=== PATIENT | female | born 1965 | race Caucasian/White ===

== ENCOUNTER 2016-12-31 18:49 | Emergency (ER) | payer MEDICAID ==
[~2016-12-31] VITALS: Ht 152.4 cm; Wt 88.6 kg
[~2016-12-31 18:49] MED LIST: ALBUAER3 INH; AMLO5 PO; ASPI-110 PO; CARV12.5 PO; COZA50TA PO; CYCL1TAB29 PO; FURO1TAB60 PO; GABA600T PO; GLUC1000 PO; IPRASOL INH; LOVA20TA PO; NOVONP2 SQ; PLAV75TA29 PO
[2016-12-31 19:06] VITALS: BP 134/97; PULSE 99; RESP 24; TEMP 97.6; O2SAT 97
[2016-12-31] MEDS ORDERED: FURO40TA PO (19:37)
[2016-12-31] MEDS ORDERED: AMLO10TA2 PO (19:37)
[2016-12-31] MEDS ORDERED: CARV3.12 PO (19:37)
[2016-12-31] MEDS ORDERED: LOSA50TA PO (19:37)
[2016-12-31] MEDS ORDERED: KETOROLAC TROMETHAMINE 60 MG/2 ML (IM) VIAL IM ONE (19:45)
[2016-12-31] MEDS ORDERED: ACETAMINOPHEN/HYDROcodone 325 MG/5 MG TAB PO ONE (19:45)
[2016-12-31] MEDS ORDERED: METHOCARBAMOL 500 MG TAB PO SCH (19:45)
--- NOTE | 2016-12-31 19:54 | PD ---
HPI Chief Complaint: Pain: Acute or Chronic Time Seen by Provider: 19:35 Travel History International Travel<30 days: No Contact w/Intl Traveler<30days: No Traveled to known affect area: No History of Present Illness HPI 51-year-old female presents to the emergency room for evaluation of acute on chronic left-sided sciatica that has been going on for the past 3 days. Patient last had sciatica one year ago but states this is worse it is ever been. She denies any back problems. Patient has been taking ibuprofen and prescribed Flexeril without any relief in symptoms. She has also been lying on he which hasn't really helped. Patient states that the pain comes and goes "like a muscle spasm." When she was walking to the bathroom it occurred at because so much pain that her son had to assist her back to bed. She denies any recent trauma or injury. Denies fever, chills, weight loss, IV drug use, lower extremity paresthesias, saddle anesthesia, or loss of bowel or bladder control. PFSH Past Medical History Hx Anticoagulant Therapy: Yes (ASA) Asthma: Yes Anxiety: Yes Depression: Yes Heart Rhythm Problems: No Cancer: No Cardiovascular Problems: Yes ([place] X2) High Cholesterol: Yes Congestive Heart Failure: Yes COPD: Yes Coronary Artery Disease: Yes Diabetes: Yes Patient Takes Glucophage: Yes Diminished Hearing: No Endocrine: Yes Gastrointestinal Disorders: No GERD: Yes Genitourinary: Yes (KIDNEY STONES) Hypertension: Yes Implanted Vascular Access Dvce: Yes Kidney Stones: Yes Musculoskeletal: Yes (Degenerative disc disease ) Neurologic: Yes (Neuropathy ) Psychiatric: Yes Reproductive: No Respiratory: Yes (ASTHMA COPD) Immunizations Current: Yes Myocardial Infarction: Yes (X's 2) Sleep Apnea: Yes Tetanus Vaccination: < 5 Years Influenza Vaccination: Yes ?: Not Menopausal: Yes : 3 Para: 2 : 1 Tubal Ligation: Yes Past Surgical History Abdominal Surgery: Yes (Lap band) Body Medical Devices: Lap band, Novasure Section: Yes (X's 1) Gynecologic Surgery: Yes (Uterine ablation ) Other Surgery: Yes (LAP BAND, ) Social History Alcohol Use: No Tobacco Use: Yes (Occ.) Substance Use: No (Marijuana occasionally ) Allergies-Medications (Allergen,Severity, Reaction): Coded Allergies: No Known Allergies (Verified , 12/31/16) Reported Meds & Prescriptions Reported Meds & Active Scripts Active Lortab (Hydrocodone-Acetaminophen) 5-325 Mg Tab 1 Tab PO Q6H PRN Reported Amlodipine (Amlodipine Besylate) 10 Mg Tab 10 Mg PO DAILY Furosemide 40 Mg Tab 40 Mg PO BID Losartan (Losartan Potassium) 50 Mg Tab 50 Mg PO DAILY Carvedilol 3.125 Mg Tab 3.125 Mg PO BID Glucophage (Metformin HCl) 1,000 Mg Tab 1,000 Mg PO BIDPC With a meal Gabapentin 600 Mg Tab 600 Mg PO TID Flexeril (Cyclobenzaprine HCl) 10 Mg Tab 10 Mg PO DAILY PRN Plavix (Clopidogrel Bisulfate) 75 Mg Tab 75 Mg PO DAILY Lovastatin 20 Mg Tab 20 Mg PO DAILY Aspirin 81 (Aspirin) 81 Mg Tabdr 81 Mg PO DAILY Review of Systems Except as stated in HPI: all other systems reviewed are Neg Physical Exam Narrative GENERAL: Well-nourished, morbidly obese female in no acute distress. Afebrile. SKIN: Focused skin assessment warm/dry. No erythema or ecchymosis. HEAD: Normocephalic. EYES: No scleral icterus. No injection or drainage. NECK: Supple, trachea midline. No JVD or lymphadenopathy. CARDIOVASCULAR: Regular rate and rhythm without murmurs, gallops, or rubs. RESPIRATORY: Breath sounds equal bilaterally. No accessory muscle use. BACK: No CVA tenderness. No rash. No point tenderness on palpation of the spine. Patellar and Achilles reflexes are diminished but equal bilaterally. Data Data Last Documented VS Vital Signs Date Time Temp Pulse Resp B/P Pulse Ox O2 Delivery O2 Flow Rate FiO2 12/31/16 19:55 95 20 131/82 96 Room Air 12/31/16 19:06 97.6 Orders Acetamin-Hydrocod 325-5 Mg ([place] 5-325 (12/31/16 19:45) Ketorolac Inj (Toradol Inj) (12/31/16 19:45) Methocarbamol (Robaxin) (12/31/16 19:45) MDM Medical Decision Making Medical Screen Exam Complete: Yes Emergency Medical Condition: Yes Medical Record Reviewed: Yes Differential Diagnosis Sciatica versus back strain versus muscle spasm Narrative Course 51-year-old female presents to the emergency room for acute exacerbation of chronic left-sided sciatica. Physical exam reveals mild tenderness to palpation in the left buttocks. She has been ambulatory since onset of symptoms but is not ambulatory in the ER. No focal neurological deficits. No red flag symptoms. No indication for imaging at this time. History and physical exam are consistent with sciatica. Patient given Lortab, Robaxin, and low-dose Toradol in the emergency room. She will be discharged with prescription for short course of Lortab. She was told to follow up with a primary care physician and return to the emergency room for worsening symptoms. She understands and agrees to plan. Diagnosis Primary Impression: Sciatica Qualified Code: M54.32 - Sciatica of left side Referrals: Primary Care Physician Patient Instructions: General Instructions, Sciatica (ED) Additional Instructions: Rest and drink plenty of fluids. Take prescribed Flexeril as directed, as needed for pain. Take Lortab with food as directed, as needed for pain. Do not drink alcohol or drive while taking this medication. Apply ice to the affected area for 20 minutes at a time, as needed for pain and swelling. Follow-up with a primary care physician. Return to the emergency room for worsening symptoms. Med/Other Pt SpecificInfo: Prescription(s) given Scripts Hydrocodone-Acetaminophen (Lortab)5-325 Mg Tab1 Tab PO Q6H PRN (PAIN) #10 TAB Ref 0 Prov:Mahad Houston MD 12/31/16 Disposition: 01 DISCHARGE HOME Condition: Stable Alecia Fierro December 31, 2016 19:54
[2016-12-31 19:55] VITALS: BP 131/82; PULSE 95; RESP 20; O2SAT 96
[2016-12-31] MEDS ORDERED: HYDR-3533 PO (19:55)
== END 2016-12-31 20:30 | disposition home or self-care (01) ==
LOC: PHEFT 18:49
DX: M54.32 Sciatica, left side (principal); J45.909 Unspecified asthma, uncomplicated; I50.9 Heart failure, unspecified; J44.9 Chronic obstructive pulmonary disease, unspecified; I25.10 Atherosclerotic heart disease of native coronary artery without angina pectoris; K21.9 Gastro-esophageal reflux disease without esophagitis; E11.9 Type 2 diabetes mellitus without complications; I10 Essential (primary) hypertension; E78.00 Pure hypercholesterolemia, unspecified
CPT/HCPCS: 96372; 99284; J1885

== ENCOUNTER 2017-04-23 05:26 | Inpatient (IN) | payer MEDICAID ==
[2017-04-23] VITALS (11 sets, daily range): BP systolic 127–168; BP diastolic 74–96; PULSE 92–107; RESP 15–46; TEMP 97.9–101; O2SAT 88–98
[~2017-04-23] VITALS: Ht 152.4 cm; Wt 90.6 kg
[~2017-04-23 05:26] MED LIST changes: -ALBUAER3 INH; +AMLO10TA2 PO; -AMLO5 PO; -CARV12.5 PO; +CARV3.12 PO; -COZA50TA PO; -FURO1TAB60 PO; +FURO40TA PO; +HYDR-3533 PO; -IPRASOL INH; +LOSA50TA PO; -NOVONP2 SQ
[2017-04-23] MEDS ORDERED: SODIUM CHLORIDE 0.9% FLUSH 10 ML FLUSH IVF PRN (06:00)
[2017-04-23] MEDS ORDERED: methylPREDNISolone SOD SUCC 125 MG/2 ML VIAL IV PUSH ONE (06:00)
--- NOTE | 2017-04-23 06:07 | PD ---
HPI Chief Complaint: Cold / Flu Symptoms Time Seen by Provider: 05:57 Travel History International Travel<30 days: No Contact w/Intl Traveler<30days: No Traveled to known affect area: No History of Present Illness HPI The patient is a 51-year-old female who complains of cough and congestion for 2 days. She denies any fever, nausea or vomiting. She does have a gradual onset biparietal headache. She does have a history of coronary artery disease and has a stent and is on Plavix for this. She also has a history of congestive heart failure. She is been a smoker but quit a month ago. Her last prednisone was about 8 months ago when she had pneumonia. She has a nebulizer at home but did not use it tonight. PFSH Past Medical History Hx Anticoagulant Therapy: Yes (ASA) Asthma: Yes Anxiety: Yes Depression: Yes Heart Rhythm Problems: No Cancer: No Cardiovascular Problems: Yes ([place] X2) High Cholesterol: Yes Congestive Heart Failure: Yes COPD: Yes Coronary Artery Disease: Yes Diabetes: Yes Diminished Hearing: No Endocrine: Yes Gastrointestinal Disorders: No GERD: Yes Genitourinary: Yes (KIDNEY STONES) Hypertension: Yes Implanted Vascular Access Dvce: Yes Kidney Stones: Yes Musculoskeletal: Yes (Degenerative disc disease ) Neurologic: Yes (Neuropathy ) Psychiatric: Yes Reproductive: No Respiratory: Yes (ASTHMA COPD) Immunizations Current: Yes Myocardial Infarction: Yes (X's 2) Sleep Apnea: Yes Menopausal: Yes : 3 Para: 2 : 1 Tubal Ligation: Yes Past Surgical History Abdominal Surgery: Yes (Lap band) Body Medical Devices: Lap band, Novasure Section: Yes (X's 1) Gynecologic Surgery: Yes (Uterine ablation ) Other Surgery: Yes (LAP BAND, ) Social History Alcohol Use: No Tobacco Use: Yes (Occ.) Substance Use: No (Marijuana occasionally ) Allergies-Medications (Allergen,Severity, Reaction): Coded Allergies: No Known Allergies (Verified , 12/31/16) Reported Meds & Prescriptions Reported Meds & Active Scripts Active Reported Amlodipine (Amlodipine Besylate) 10 Mg Tab 10 Mg PO DAILY Furosemide 40 Mg Tab 40 Mg PO BID Losartan (Losartan Potassium) 50 Mg Tab 50 Mg PO DAILY Carvedilol 3.125 Mg Tab 3.125 Mg PO BID Glucophage (Metformin HCl) 1,000 Mg Tab 1,000 Mg PO BIDPC With a meal Gabapentin 600 Mg Tab 600 Mg PO TID Flexeril (Cyclobenzaprine HCl) 10 Mg Tab 10 Mg PO DAILY PRN Plavix (Clopidogrel Bisulfate) 75 Mg Tab 75 Mg PO DAILY Lovastatin 20 Mg Tab 20 Mg PO DAILY Aspirin 81 (Aspirin) 81 Mg Tabdr 81 Mg PO DAILY Review of Systems Except as stated in HPI: all other systems reviewed are Neg Physical Exam Narrative GENERAL: The patient is alert, obese, oriented 3 in slight respiratory distress. Her vital signs show temperature 101, heart rate 106 with oximetry 88 %. The initial oral temperature is showed artificially low because the patient was mouth breathing. SKIN: Focused skin assessment warm/dry. HEAD: Atraumatic. Normocephalic. EYES: Pupils equal and round. No scleral icterus. No injection or drainage. ENT: No nasal bleeding or discharge. Mucous membranes pink and moist. NECK: Trachea midline. No JVD. CARDIOVASCULAR: Regular rate and rhythm. No murmur appreciated. RESPIRATORY: No accessory muscle use. Bilateral wheezes are heard in all lung serrano. Breath sounds equal bilaterally. GASTROINTESTINAL: Abdomen soft, non-tender, nondistended. Hepatic and splenic margins not palpable. No guarding or rebound is present. MUSCULOSKELETAL: No obvious deformities. No clubbing. No cyanosis. No edema. NEUROLOGICAL: Awake and alert. No obvious cranial nerve deficits. Motor grossly within normal limits. Normal speech. PSYCHIATRIC: Appropriate mood and affect; insight and judgment normal. Data Data Last Documented VS Vital Signs Date Time Temp Pulse Resp B/P (MAP) Pulse Ox O2 Delivery O2 Flow Rate FiO2 04/23/17 06:42 93 Nasal Cannula 3.00 04/23/17 06:42 101.0 107 24 168/95 (119) Orders Orders Complete Blood Count With Diff (04/23/17 05:57) Comprehensive Metabolic Panel (04/23/17 05:57) B-Type Natriuretic Peptide (04/23/17 05:57) Troponin I (04/23/17 05:57) Urinalysis - C+S If Indicated (04/23/17 05:57) Iv Access Insert/Monitor (04/23/17 05:57) Electrocardiogram (04/23/17 05:57) Ecg Monitoring (04/23/17 05:57) Oximetry (04/23/17 05:57) Oxygen Administration (04/23/17 05:57) Chest, Pa & Lat (04/23/17 05:57) Sodium Chloride 0.9% Flush (Ns Flush) (04/23/17 06:00) Methylprednisolone So Succ Inj (Solumedr (04/23/17 06:00) Albuterol-Ipratropium Neb (Duoneb Neb) (04/23/17 06:00) Arterial Blood Gas (Abg) (04/23/17 ) Lactic Acid Sepsis Protocol (04/23/17 06:23) Blood Culture (04/23/17 06:23) Acetaminophen (Tylenol) (04/23/17 06:45) Labs Laboratory Tests Test 04/23/17 06:15 04/23/17 06:26 White Blood Count 16.6 TH/MM3 Red Blood Count 4.22 MIL/MM3 Hemoglobin 12.9 GM/DL Hematocrit 38.3 % Mean Corpuscular Volume 90.9 FL Mean Corpuscular Hemoglobin 30.7 PG Mean Corpuscular Hemoglobin Concent 33.8 % Red Cell Distribution Width 14.2 % Platelet Count 229 TH/MM3 Mean Platelet Volume 8.4 FL Neutrophils (%) (Auto) 81.0 % Lymphocytes (%) (Auto) 7.2 % Monocytes (%) (Auto) 6.1 % Eosinophils (%) (Auto) 0.9 % Basophils (%) (Auto) 4.8 % Neutrophils # (Auto) 13.5 TH/MM3 Lymphocytes # (Auto) 1.2 TH/MM3 Monocytes # (Auto) 1.0 TH/MM3 Eosinophils # (Auto) 0.1 TH/MM3 Basophils # (Auto) 0.8 TH/MM3 CBC Comment AUTO DIFF Differential Comment AUTO DIFF CONFIRMED Blood Urea Nitrogen 9 MG/DL Creatinine 0.77 MG/DL Random Glucose 152 MG/DL Total Protein 7.2 GM/DL Albumin 3.1 GM/DL Calcium Level 8.1 MG/DL Alkaline Phosphatase 95 U/L Aspartate Amino Transf (AST/SGOT) 18 U/L Alanine Aminotransferase (ALT/SGPT) 18 U/L Total Bilirubin 0.4 MG/DL Sodium Level 140 MEQ/L Potassium Level 3.7 MEQ/L Chloride Level 101 MEQ/L Carbon Dioxide Level 30.9 MEQ/L Anion Gap 8 MEQ/L Estimat Glomerular Filtration Rate 78 ML/MIN Lactic Acid Level 1.2 mmol/L Troponin I 0.05 NG/ML B-Type Natriuretic Peptide 1174 PG/ML Blood Gas Puncture Site LT RADIAL Blood Gas Patient Temperature 98.6 Blood Gas HCO3 31 mmol/L Blood Gas Base Excess 7.5 mmol/L Blood Gas Oxygen Saturation 84 % Arterial Blood pH 7.48 Arterial Blood Partial Pressure CO2 43 mmHG Arterial Blood Partial Pressure O2 51 mmHG Arterial Blood Oxygen Content 15.6 Vol % Arterial Blood Carboxyhemoglobin 2.2 % Arterial Blood Methemoglobin 1.2 % Blood Gas Hemoglobin 13.2 G/DL Blood Gas Inspired Oxygen 21 % MDM Medical Decision Making Medical Screen Exam Complete: Yes Emergency Medical Condition: Yes Medical Record Reviewed: Yes Interpretation(s) The blood gases show pH 7.48, CO2 43, PO2 51 with O2 sat 84% on room air. This was after DuoNeb treatments. The chest x-ray shows cardiomegaly but the lungs are clear. The EKG shows sinus tachycardia of 107, possible right ventricular hypertrophy, old inferior myocardial infarction with Q waves and possible left atrial enlargement but no acute ST elevation or depression. The lactic acid is normal. Differential Diagnosis Pneumonia, bronchitis, asthma, hypoxemia, electrolyte disorder, hypo-/ hyperglycemia, renal insufficiency, coronary ischemia, pulmonary embolus-highly unlikely, sepsis Narrative Course The patient has a bronchitis with hypoxemia. She also has moderate cardiomegaly on the chest x-ray but this is not a new finding. She also has a leukocytosis. The BNP is 1174 and she will be given Lasix IV, this may help some of her breathing. Sepsis Criteria SIRS Criteria (2 or more): Temp > 100.9 or < 96.8, Heart rate over 90, WBC > 46957, < 4000 or > 10% bands Sepsis Criteria (SIRS+source): Infect source susp/known Physician Communication Physician Communication I discussed the patient with Dr. Wahl, the patient will be admitted to her. Diagnosis Primary Impression: Bronchitis Additional Impressions: CHF (congestive heart failure) Hypoxemia Leukocytosis Sepsis Admitting Information Admitting Physician Requests: Admit Mahad Houston MD Apr 23, 2017 06:07
[2017-04-23] MEDS: RESP: ALBUTEROL 2.5 MG/IPRATROPIUM 0.5 MG NEB (SCH) INH ×5 (06:13→21:15)
[2017-04-23 06:29] LABS: AUTOMATED NEUTROPHIL # 13.5 TH/MM3 (1.8-7.7); BASOPHIL # 0.8 TH/MM3 (0-0.2); BASOPHIL % 4.8 % (0.0-2.0); EOSINOPHIL # 0.1 TH/MM3 (0-0.4); EOSINOPHIL % 0.9 % (0.0-4.0); HEMATOCRIT 38.3 % (35.0-46.0); HEMO FLAGS AUTO DIFF; LYMPH % 7.2 % (9.0-44.0); LYMPHOCYTE # 1.2 TH/MM3 (1.0-4.8); MEAN CELL VOLUME 90.9 FL (80.0-100.0); MEAN CORPUSCULAR HEMOGLOBIN 30.7 PG (27.0-34.0); MEAN CORPUSCULAR HGB CONC 33.8 % (32.0-36.0); MONO % 6.1 % (0.0-8.0); PLATELET COUNT 229 TH/MM3 (150-450); RED BLOOD COUNT 4.22 MIL/MM3 (4.00-5.30); RED CELL DISTRIBUTION WIDTH 14.2 % (11.6-17.2); WHITE BLOOD COUNT 16.6 TH/MM3 (4.0-11.0)
[2017-04-23 06:39] LABS: BLOOD GAS BASE EXCESS 7.5 mmol/L (-2-2); BLOOD GAS CARBOXYHEMOGLOBIN 2.2 % (0-4); BLOOD GAS HCO3 31 mmol/L (22-26); BLOOD GAS METHEMOGLOBIN 1.2 % (0-2); BLOOD GAS O2 HGB SATURATION 84 % (90-100); BLOOD GAS OXYGEN CONTENT 15.6 Vol % (12.0-20.0); BLOOD GAS PCO2 43 mmHG (38-42); BLOOD GAS PO2 51 mmHG (61-120); BLOOD GAS TOTAL HGB 13.2 G/DL (12.0-16.0); CRITICAL VALUE YES; FIO2 21 %; TEMP CORR TO 98.6
[2017-04-23 06:40] LABS: DRAW SITE LT RADIAL; NUMBER OF ARTERIAL PUNCTURES 1; STAT YES; ULNAR PULSE Y
[2017-04-23 06:43] LABS: SCAN/DIFF AUTO DIFF CONFIRMED
[2017-04-23 06:44] LABS: BICARBONATE 30.9 MEQ/L (21.0-32.0); BLOOD UREA NITROGEN 9 MG/DL (7-18)
[2017-04-23] MEDS ORDERED: ACETAMINOPHEN 500 MG CPLT PO ONE (06:45)
[2017-04-23 06:46] LABS: ANION GAP 8 MEQ/L (5-15); CHLORIDE 101 MEQ/L (98-107); POTASSIUM 3.7 MEQ/L (3.5-5.1); SODIUM (NA) 140 MEQ/L (136-145)
[2017-04-23 06:47] LABS: ALT (GPT) 18 U/L (10-53); AST (GOT) 18 U/L (15-37); GLOMERULAR FILTRATION RATE 78 ML/MIN (>89)
[2017-04-23 06:49] LABS: TOTAL BILIRUBIN ADULT 0.4 MG/DL (0.2-1.0)
[2017-04-23 06:50] LABS: ALKALINE PHOSPHATASE 95 U/L (45-117)
--- NOTE | 2017-04-23 06:57 | RADRPT ---
EXAM DATE/TIME: 04/23/2017 06:38 [facility] COMPARISON: CHEST PA & LAT, July 18, 2014, 13:08. INDICATIONS : Short of breath,congestion & cough x 2 days. MEDICAL HISTORY : Myocardial infarction. Congestive heart failure. Hypercholesterolemia. Neuropathy. COPD. Asthma. Hypertension. Sleep apnea. GERD. Renal stones. Diabetic. SURGICAL HISTORY : Tubal ligation. section. Cardiac cath. Lap band. Uterine ablation. ENCOUNTER: Initial ACUITY: 2 days PAIN SCORE: 0/10 LOCATION: chest FINDINGS: PA and lateral views of the chest demonstrate the lungs to be symmetrically aerated without evidence of mass, infiltrate or effusion. Moderate cardiomegaly. Implanted device overlies the right cardiophr enic angle. Osseous structures are intact. CONCLUSION: 1. Moderate cardiomegaly. 2. Clear lungs. Domingo Cotton Jr., MD on April 23, 2017 at 6:55 Board Certified Radiologist. This report was verified electronically.
[2017-04-23] MEDS ORDERED: cefTRIAXone INJ 1,000 MG in SODIUM CHLORIDE 0.9% INJ 100 ML IV ONE (07:15)
[2017-04-23] MEDS ORDERED: ONDANSETRON HCL 4 MG/2 ML VIAL IVP PRN (09:00)
[2017-04-23] MEDS ORDERED: DEXTROSE 50% IN WATER 50 ML VIAL(D50) IV PUSH PRN (09:00)
[2017-04-23] MEDS ORDERED: SODIUM CHLORIDE 0.9% FLUSH 10 ML FLUSH IV FLUSH PRN (09:00)
[2017-04-23] MEDS ORDERED: LACTULOSE SYRUP 20 GM/30 ML CUP PO PRN (09:00)
[2017-04-23] MEDS ORDERED: NALOXONE HCL 0.4 MG/ML AMP IV PUSH PRN (09:00)
[2017-04-23] MEDS ORDERED: SENNOSIDES 8.6 MG TAB PO PRN (09:00)
[2017-04-23] MEDS ORDERED: GLUCAGON 1 MG/ML VIAL OTHER PRN (09:00)
[2017-04-23] MEDS ORDERED: RESP: ALBUTEROL 2.5 MG/3 ML NEB (PRN) INH (09:00)
[2017-04-23] MEDS ORDERED: MAGNESIUM HYDROXIDE SUSP 30 ML CUP PO PRN (09:00)
[2017-04-23] MEDS ORDERED: BISACODYL 10 MG SUPP RECTAL PRN (09:00)
[2017-04-23] MEDS ORDERED: ACETAMINOPHEN 325 MG TAB PO PRN (09:00)
[2017-04-23] MEDS ORDERED: CYCLOBENZAPRINE HCL 10 MG TAB PO PRN (11:00)
--- NOTE | 2017-04-23 11:05 | HHI.HP ---
[facility] Service [facility] Primary Care Physician Adrian Contreras DO Admission Diagnosis bronchitis, congestive heart failure, hypoxemia, sepsis Diagnoses: Travel History International Travel<30 Days: No Contact w/Intl Traveler <30 Da: No Traveled to Known Affected Are: No History of Present Illness This is a pleasant 51-year-old female with past medical history of COPD, CHF with ejection fraction of 30-35%, type 2 diabetes who presents to the ER complaining of a three-day history of sore throat, cough and beginning last night dyspnea. The patient states that recently her friend was sick with a cold followed by her son, and then she started to develop sore throat 3 days ago followed by severe cough productive of sputum. She did not note any fevers at home however temperature here is 101. The patient could not stop coughing last night and was feeling short of breath and so her son encouraged her to come to the emergency department. No aggravating or alleviating factors. She was found to be hypoxemic on room air with O2 sat of 88% as well as had a fever , was mildly tachycardic and white blood cell count was elevated at 16,000. She was given 1 g of Rocephin IV along with 125 mg of Solu-Medrol IV. Chest x- ray showed cardiomegaly but lung serrano were clear. Review of Systems Constitutional: DENIES: Fever, Chills Eyes: DENIES: Blurred vision, Diplopia Ears, nose, mouth, throat: COMPLAINS OF: Throat pain, DENIES: Hoarseness, Running Nose Respiratory: COMPLAINS OF: Cough, Wheezing, Sputum production, Shortness of breath Cardiovascular: DENIES: Chest pain, Palpitations, Syncope Gastrointestinal: DENIES: Diarrhea, Nausea, Vomiting Genitourinary: DENIES: Urinary frequency, Dysuria Musculoskeletal: COMPLAINS OF: Muscle aches, DENIES: Stiffness Integumentary: DENIES: Abnormal pigmentation, Rash Hematologic/lymphatic: DENIES: Lymphadenopathy Neurologic: COMPLAINS OF: Paresthesias (the patient states she has been having intermittent right arm paresthesias for the past 2 weeks which is alleviated by rest and aggravated by movement, no slurred speech or facial numbness), DENIES: Abnormal gait, Headache, Localized weakness, Speech Problems Psychiatric: DENIES: Confusion Past Family Social History Past Medical History Chronic systolic congestive heart failure and ischemic cardiomyopathy and ischemic cardiomyopathy with ejection fraction of 30 35% COPD Coronary artery disease status post stent several years ago Type 2 diabetes Peripheral neuropathy Hypertension Past Surgical History Endometrial ablation, cardiac stent, Reported Medications Allergies Coded Allergies Type Severity Reaction Last Updated Verified No Known Allergies 12/31/16 Yes Active Scripts Medications Dose Route/Sig Max Daily Dose Days Date Category Dose Instructions Amlodipine (Amlodipine Besylate) 10 Mg Tab 10 Mg PO DAILY 12/31/16 Reported Furosemide 40 Mg Tab 40 Mg PO BID 12/31/16 Reported Losartan (Losartan Potassium) 50 Mg Tab 50 Mg PO DAILY 12/31/16 Reported Carvedilol 3.125 Mg Tab 3.125 Mg PO BID 12/31/16 Reported Glucophage (Metformin HCl) 1,000 Mg Tab 1,000 Mg PO BIDPC 07/23/16 Reported With a meal Gabapentin 600 Mg Tab 600 Mg PO TID 07/23/16 Reported Flexeril (Cyclobenzaprine HCl) 10 Mg Tab 10 Mg PO DAILY PRN 07/23/16 Reported Plavix (Clopidogrel Bisulfate) 75 Mg Tab 75 Mg PO DAILY 07/23/16 Reported Lovastatin 20 Mg Tab 20 Mg PO DAILY 07/23/16 Reported Aspirin 81 (Aspirin) 81 Mg Tabdr 81 Mg PO DAILY 07/23/16 Reported Allergies: Coded Allergies: No Known Allergies (Verified , 12/31/16) Family History Reviewed and noncontributory Social History She does not currently smoke, denies alcohol or drug use Physical Exam Vital Signs Vital Signs Date Time Temp Pulse Resp B/P (MAP) Pulse Ox O2 Delivery O2 Flow Rate FiO2 04/23/17 09:59 95 Nasal Cannula 3.00 04/23/17 07:13 106 18 143/74 (97) 91 Room Air 2.00 04/23/17 06:42 93 Nasal Cannula 3.00 04/23/17 06:42 101.0 107 24 168/95 (119) 93 Nasal Cannula 3.00 04/23/17 06:35 Nasal Cannula 3.00 04/23/17 05:59 20 04/23/17 05:34 99.4 106 20 132/87 (102) 88 Physical Exam GENERAL: This is a well-nourished, well-developed female patient, in no apparent distress. SKIN: No rashes, ecchymoses or lesions. Cool and dry. HEAD: Atraumatic. Normocephalic. EYES: Pupils equal round and reactive. Extraocular motions intact. No scleral icterus. No injection or drainage. ENT: Throat without erythema, tonsillar hypertrophy or exudate. Uvula midline. Airway patent. NECK: Trachea midline. No JVD or lymphadenopathy. Supple, nontender, no meningeal signs. CARDIOVASCULAR: Regular rate and rhythm without murmurs, gallops, or rubs. RESPIRATORY: Mild expiratory wheezing. Breath sounds equal bilaterally. Nonlabored breathing. GASTROINTESTINAL: Abdomen soft, non-tender, nondistended. No hepato-splenomegaly , or palpable masses. No guarding. MUSCULOSKELETAL: Extremities without clubbing, cyanosis, or edema. No joint tenderness, effusion, or edema noted. NEUROLOGICAL: Awake and alert. Cranial nerves II through XII intact. Motor and sensory grossly within normal limits. Five out of 5 muscle strength in all muscle groups. Normal speech. Laboratory Laboratory Tests Test 04/23/17 06:15 04/23/17 06:26 White Blood Count 16.6 Red Blood Count 4.22 Hemoglobin 12.9 Hematocrit 38.3 Mean Corpuscular Volume 90.9 Mean Corpuscular Hemoglobin 30.7 Mean Corpuscular Hemoglobin Concent 33.8 Red Cell Distribution Width 14.2 Platelet Count 229 Mean Platelet Volume 8.4 Neutrophils (%) (Auto) 81.0 Lymphocytes (%) (Auto) 7.2 Monocytes (%) (Auto) 6.1 Eosinophils (%) (Auto) 0.9 Basophils (%) (Auto) 4.8 Neutrophils # (Auto) 13.5 Lymphocytes # (Auto) 1.2 Monocytes # (Auto) 1.0 Eosinophils # (Auto) 0.1 Basophils # (Auto) 0.8 CBC Comment AUTO DIFF Differential Comment AUTO DIFF CONFIRMED Blood Urea Nitrogen 9 Creatinine 0.77 Random Glucose 152 Total Protein 7.2 Albumin 3.1 Calcium Level 8.1 Alkaline Phosphatase 95 Aspartate Amino Transf (AST/SGOT) 18 Alanine Aminotransferase (ALT/SGPT) 18 Total Bilirubin 0.4 Sodium Level 140 Potassium Level 3.7 Chloride Level 101 Carbon Dioxide Level 30.9 Anion Gap 8 Estimat Glomerular Filtration Rate 78 Lactic Acid Level 1.2 Troponin I 0.05 B-Type Natriuretic Peptide 1174 Blood Gas Puncture Site LT RADIAL Blood Gas Patient Temperature 98.6 Blood Gas HCO3 31 Blood Gas Base Excess 7.5 Blood Gas Oxygen Saturation 84 Arterial Blood pH 7.48 Arterial Blood Partial Pressure CO2 43 Arterial Blood Partial Pressure O2 51 Arterial Blood Oxygen Content 15.6 Arterial Blood Carboxyhemoglobin 2.2 Arterial Blood Methemoglobin 1.2 Blood Gas Hemoglobin 13.2 Blood Gas Inspired Oxygen 21 Date/Time Source Procedure Growth Status 04/23/17 06:22 Blood Peripheral Aerobic Blood Culture Pending Received 04/23/17 06:22 Blood Peripheral Anaerobic Blood Culture Pending Received Result Diagram: 04/23/1715 04/23/1715 Imaging Last Impressions Chest X-Ray 04/23/17 0557 Signed Impressions: Service Date/Time: , April 23, 2017 06:38 - CONCLUSION: 1. Moderate cardiomegaly. 2. Clear lungs. MD Leticia Youssef Jr. VTE Risk Assessment Caprini VTE Risk Assessment: Mod/High Risk (score >= 2) Caprini Risk Assessment Model Point Value = 1 Point Value = 2 Point Value = 3 Point Value = 5 Age 41-60 Minor surgery BMI > 25 kg/m2 Swollen legs Varicose veins or History of unexplained or recurrent spontaneous Oral contraceptives or hormone replacement Sepsis (< 1 month) Serious lung disease, including pneumonia (< 1 month) Abnormal pulmonary function Acute myocardial infarction Congestive heart failure (< 1 month) History of inflammatory bowel disease Medical patient at bed rest Age 61-74 Arthroscopic surgery Major open surgery (> 45 min) Laparoscopic surgery (> 45 min) Malignancy Confined to bed (> 72 hours) Immobilizing plaster cast Central venous access Age >= 75 History of VTE Family history of VTE Factor V Leiden Prothrombin [id number] Lupus anticoagulant Anticardiolipin antibodies Elevated serum homocysteine Heparin-induced thrombocytopenia Other congenital or acquired thrombophilia Stroke (< 1 month) Elective arthroplasty Hip, pelvis, or leg fracture Acute spinal cord injury (< 1 month) Prophylaxis Regimen Total Risk Factor Score Risk Level Prophylaxis Regimen 0-1 Low Early ambulation 2 Moderate Order ONE of the following: *Sequential Compression Device (SCD) *Heparin 5000 units SQ BID 3-4 Higher Order ONE of the following medications: *Heparin 5000 units SQ TID *Enoxaparin/Lovenox 40 mg SQ daily (WT < 150 kg, CrCl > 30 mL/min) *Enoxaparin/Lovenox 30 mg SQ daily (WT < 150 kg, CrCl > 10-29 mL/min) *Enoxaparin/Lovenox 30 mg SQ BID (WT < 150 kg, CrCl > 30 mL/min) AND/OR *Sequential Compression Device (SCD) 5 or more Highest Order ONE of the following medications: *Heparin 5000 units SQ TID (Preferred with Epidurals) *Enoxaparin/Lovenox 40 mg SQ daily (WT < 150 kg, CrCl > 30 mL/min) *Enoxaparin/Lovenox 30 mg SQ daily (WT < 150 kg, CrCl > 10-29 mL/min) *Enoxaparin/Lovenox 30 mg SQ BID (WT < 150 kg, CrCl > 30 mL/min) AND *Sequential Compression Device (SCD) Assessment and Plan Problem List: (1) Hypoxemia ICD Code: R09.02 - Hypoxemia Status: Acute (2) Chronic obstructive pulmonary disease ICD Code: J44.9 - Chronic obstructive pulmonary disease, unspecified Status: Acute (3) Systemic inflammatory response syndrome ICD Code: R65.10 - Systemic inflammatory response syndrome (SIRS) of non- infectious origin without acute organ dysfunction Status: Acute (4) CHF (congestive heart failure) ICD Code: I50.9 - Heart failure, unspecified Status: Chronic (5) Hypertension ICD Code: I10 - Hypertension Status: Chronic (6) Coronary artery disease ICD Code: I25.10 - Coronary artery disease Status: Chronic (7) Diabetes mellitus ICD Code: E11.9 - Type 2 diabetes mellitus without complications Status: Chronic (8) Cardiomyopathy ICD Code: I42.9 - Cardiomyopathy Status: Chronic (9) Leukocytosis ICD Code: D72.829 - Elevated white blood cell count, unspecified Status: Acute (10) Bronchitis ICD Code: J40 - Bronchitis, not specified as acute or chronic Status: Acute Assessment and Plan -Acute COPD exacerbation and bronchitis with hypoxemia and severe inflammatory response syndrome- Will admit for IV steroids, Levaquin, DuoNeb's, oxygen via nasal cannula. Will check sputum culture. Will check influenza. -Chronic systolic congestive heart failure and ischemic cardiomyopathy and ischemic cardiomyopathy with ejection fraction of 30 35% - continue by mouth Lasix, Coreg, losartan. -Coronary artery disease status post stent several years ago-not currently followed by assistant attorney [facility]. Continue aspirin and Plavix, lovastatin. -Type 2 diabetes -place on sliding scale insulin with Accu-Cheks. Continue metformin is no procedures planned. -Peripheral neuropathy - continue Neurontin. -Hypertension - continue losartan and Coreg and amlodipine. -DVT prophylaxis with Lovenox subcutaneous. Problem Qualifiers (1) Chronic obstructive pulmonary disease: Qualified Codes: J44.1 - Chronic obstructive pulmonary disease with (acute) exacerbation (2) CHF (congestive heart failure): Qualified Codes: I50.22 - Chronic systolic (congestive) heart failure (3) Hypertension: Qualified Codes: I10 - Essential (primary) hypertension (4) Coronary artery disease: Qualified Codes: I25.10 - Atherosclerotic heart disease of [place] coronary artery without angina pectoris (5) Diabetes mellitus: (6) Cardiomyopathy: Qualified Codes: I25.5 - Ischemic cardiomyopathy Juanita Wahl MD Apr 23, 2017 10:13
[2017-04-23] MEDS: methylPREDNISolone SOD SUCC 125 MG/2 ML VIAL IV PUSH SCH ×2 (11:29→17:44)
[2017-04-23] MEDS: LEVOFLOXACIN 750 MG TAB PO SCH (11:30)
[2017-04-23] MEDS: SODIUM CHLORIDE 0.9% FLUSH 10 ML FLUSH IV FLUSH SCH ×2 (11:30→20:47)
[2017-04-23] MEDS: ENOXAPARIN SODIUM 40 MG/0.4 ML SYRINGE SQ SCH (11:30)
[2017-04-23] MEDS: DOCUSATE SODIUM 50 MG/SENNA 8.6 MG TAB PO SCH ×2 (11:32→20:47)
[2017-04-23] MEDS: INSULIN ASPART SUPPLEMENTAL SCALE SQ SCH ×3 (11:36→20:55)
[2017-04-23] MEDS: GABAPENTIN 300 MG CAP PO SCH ×2 (12:00→17:44)
[2017-04-23] MEDS: ASPIRIN EC 81 MG TABEC PO SCH (12:02)
[2017-04-23] MEDS: CLOPIDOGREL 75 MG TAB PO SCH (12:02)
[2017-04-23] MEDS ORDERED: FUROSEMIDE 40 MG/4 ML VIAL IV PUSH ONE (14:00)
[2017-04-23 15:14] LABS: GLUCOSE,URINE 500 mg/dL (NEG); KETONE, URINE NEG (NEG); NITRITE,URINE POS (NEG); PH, URINE 5.5 (5.0-8.5)
[2017-04-23 15:23] LABS: BLOOD, URINE TRACE (NEG); METHOD OF COLLECTION CLEAN CATCH; URINE COLOR YELLOW (YELLW/STRAW)
[2017-04-23 15:24] LABS: BACTERIA, URINE MOD /hpf; COMMENT (UR) CULTURE INDICATED; CULTURE IF INDICATED CULTURE INDICATED; SQUAMOUS EPITHELIAL CELL URINE > 8 /hpf (0-5)
--- NOTE | 2017-04-23 15:30 | EKG ---
Date Performed: 04/23/2017 Time Performed: 06:57:26 PTAGE: 51 years EKG: SINUS TACHYCARDIA POSSIBLE LEFT ATRIAL ENLARGEMENT POSSIBLE RIGHT VENTRICULAR HYPERTROPHY I NFERIOR MYOCARDIAL INFARCTION ABNORMAL ECG PREVIOUS TRACING : 07/24/2016 04.50 Compared to the previous tracing, change in limb lead axis and inferior myocardial infarction, unsure if possible lead placement DOCTOR: Raad Andres Interpretating Date/Time 04/23/2017 15:28:01
[2017-04-23] MEDS: metFORMIN HCL 500 MG TAB PO SCH (17:44)
[2017-04-23] MEDS: FUROSEMIDE 40 MG TAB PO SCH (20:46)
[2017-04-23] MEDS: CARVEDILOL 3.125 MG TAB PO SCH (20:46)
[2017-04-23] MEDS: ACETAMINOPHEN/HYDROcodone 325 MG/5 MG TAB PO PRN (20:46)
[2017-04-24] VITALS (9 sets, daily range): BP systolic 101–137; BP diastolic 73–96; PULSE 80–93; RESP 12–21; TEMP 95.7–97.8; O2SAT 93–97
[2017-04-24] MEDS: methylPREDNISolone SOD SUCC 125 MG/2 ML VIAL IV PUSH SCH ×5 (00:15→23:11)
[2017-04-24] MEDS: RESP: ALBUTEROL 2.5 MG/IPRATROPIUM 0.5 MG NEB (SCH) INH ×4 (03:29→21:10)
[2017-04-24] MEDS: DOCUSATE SODIUM 50 MG/SENNA 8.6 MG TAB PO SCH ×2 (07:45→20:55)
[2017-04-24] MEDS: LOSARTAN 50 MG TAB PO SCH (07:45)
[2017-04-24] MEDS: FUROSEMIDE 40 MG TAB PO SCH ×2 (07:45→20:55)
[2017-04-24] MEDS: metFORMIN HCL 500 MG TAB PO SCH ×2 (07:45→16:48)
[2017-04-24] MEDS: CLOPIDOGREL 75 MG TAB PO SCH (07:45)
[2017-04-24] MEDS: CARVEDILOL 3.125 MG TAB PO SCH ×2 (07:46→20:55)
[2017-04-24] MEDS: ASPIRIN EC 81 MG TABEC PO SCH (07:46)
[2017-04-24] MEDS: INSULIN ASPART SUPPLEMENTAL SCALE SQ SCH ×4 (07:46→20:55)
[2017-04-24] MEDS: GABAPENTIN 300 MG CAP PO SCH ×3 (07:46→16:48)
[2017-04-24] MEDS ORDERED: INFLUENZA VIRUS VACCINE (QUADRIVALENT) 0.5 ML SYR IM ONE (10:00)
[2017-04-24] MEDS: LEVOFLOXACIN 750 MG TAB PO SCH (10:51)
[2017-04-24] MEDS: ENOXAPARIN SODIUM 40 MG/0.4 ML SYRINGE SQ SCH (10:51)
[2017-04-24] MEDS: SODIUM CHLORIDE 0.9% FLUSH 10 ML FLUSH IV FLUSH SCH ×2 (10:54→20:55)
[2017-04-24] MEDS: PRAVASTATIN SOD 20 MG TAB PO SCH (10:54)
--- NOTE | 2017-04-24 11:19 | HHI.PR ---
Subjective Remarks Patient states she feels better today, no further shortness of breath, cough improved. Denies any recent abdominal pain or dysuria. She complains of headache this morning that did not resolve with Tylenol. Objective Vitals Vital Signs Date Time Temp Pulse Resp B/P (MAP) Pulse Ox O2 Delivery O2 Flow Rate FiO2 04/24/17 09:01 95 Nasal Cannula 3.00 04/24/17 08:00 95.7 89 21 137/96 (110) 97 04/24/17 07:52 97.7 91 18 115/73 (87) 94 04/24/17 04:00 97.8 90 12 133/87 (102) 94 04/24/17 00:00 97.7 92 12 116/74 (88) 95 04/23/17 21:46 28 04/23/17 21:15 96 Nasal Cannula 3.00 04/23/17 20:00 98.2 96 24 151/92 (111) 95 04/23/17 18:00 96 15 148/96 (113) 96 04/23/17 17:00 94 23 95 04/23/17 16:00 96 46 98 04/23/17 12:00 98.2 92 16 127/79 (95) 97 I/O 04/23/17 04/23/17 04/23/17 04/24/17 04/24/17 04/24/17 07:00 15:00 23:00 07:00 15:00 23:00 Intake Total 650 ml 320 ml Balance 650 ml 320 ml Intake Oral 650 ml 320 ml # Voids 2 5 # Bowel Movements 0 0 Result Diagram: 04/23/1715 04/23/17 0615 Objective Remarks GENERAL: Well-nourished, well-developed patient. SKIN: Warm and dry. HEAD: Normocephalic. EYES: No scleral icterus. No injection or drainage. NECK: Supple, trachea midline. No JVD or lymphadenopathy. CARDIOVASCULAR: Regular rate and rhythm without murmurs, gallops, or rubs. RESPIRATORY: Breath sounds equal bilaterally. Mild expiratory wheezes bilaterally. No accessory muscle use. GASTROINTESTINAL: Abdomen soft, non-tender, nondistended. EXTREMITIES: No cyanosis, or edema. NEUROLOGICAL: Awake, alert, and oriented x 3. Non-focal. A/P Problem List: (1) Hypoxemia ICD Code: R09.02 - Hypoxemia Status: Acute (2) Chronic obstructive pulmonary disease ICD Code: J44.9 - Chronic obstructive pulmonary disease, unspecified Status: Acute (3) Systemic inflammatory response syndrome ICD Code: R65.10 - Systemic inflammatory response syndrome (SIRS) of non- infectious origin without acute organ dysfunction Status: Acute (4) CHF (congestive heart failure) ICD Code: I50.9 - Heart failure, unspecified Status: Chronic (5) Hypertension ICD Code: I10 - Hypertension Status: Chronic (6) Coronary artery disease ICD Code: I25.10 - Coronary artery disease Status: Chronic (7) Diabetes mellitus ICD Code: E11.9 - Type 2 diabetes mellitus without complications Status: Chronic (8) Cardiomyopathy ICD Code: I42.9 - Cardiomyopathy Status: Chronic (9) Leukocytosis ICD Code: D72.829 - Elevated white blood cell count, unspecified Status: Acute (10) Bronchitis ICD Code: J40 - Bronchitis, not specified as acute or chronic Status: Acute Assessment and Plan -Acute COPD exacerbation and bronchitis with hypoxemia and severe inflammatory response syndrome- improving. Continue IV steroids, Levaquin, DuoNeb's, oxygen via nasal cannula. Will check sputum culture. Influenza was negative. -Abnormal UA, denies urinary symptoms. Continue Levaquin and follow-up urine culture. -Chronic systolic congestive heart failure and ischemic cardiomyopathy and ischemic cardiomyopathy with ejection fraction of 30 35% - continue by mouth Lasix, Coreg, losartan. -Coronary artery disease status post stent several years ago-not currently followed by rn admissions. Continue aspirin and Plavix, lovastatin. -Type 2 diabetes -place on sliding scale insulin with Accu-Cheks. Continue metformin. -Peripheral neuropathy - continue Neurontin. -Hypertension - continue losartan and Coreg and amlodipine. -Headache. Tylenol on Lortab as needed for headache. -DVT prophylaxis with Lovenox subcutaneous. Problem Qualifiers (1) Chronic obstructive pulmonary disease: Qualified Codes: J44.1 - Chronic obstructive pulmonary disease with (acute) exacerbation (2) CHF (congestive heart failure): Qualified Codes: I50.22 - Chronic systolic (congestive) heart failure (3) Hypertension: Qualified Codes: I10 - Essential (primary) hypertension (4) Coronary artery disease: Qualified Codes: I25.10 - Atherosclerotic heart disease of [place] coronary artery without angina pectoris (5) Diabetes mellitus: (6) Cardiomyopathy: Qualified Codes: I25.5 - Ischemic cardiomyopathy Juanita Wahl MD Apr 24, 2017 11:19
[2017-04-24] MEDS ORDERED: ACETAMINOPHEN/HYDROcodone 325 MG/7.5 MG TAB PO ONE (12:00)
[2017-04-24] MEDS: ACETAMINOPHEN/HYDROcodone 325 MG/5 MG TAB PO PRN ×2 (16:47→20:57)
[2017-04-25 00:11] VITALS: BP 102/64; PULSE 98; RESP 22; TEMP 96.5; O2SAT 92
[2017-04-25 04:11] VITALS: BP 110/82; PULSE 93; RESP 20; TEMP 96.8; O2SAT 92
[2017-04-25] MEDS: RESP: ALBUTEROL 2.5 MG/IPRATROPIUM 0.5 MG NEB (SCH) INH ×2 (04:14→09:47)
[2017-04-25] MEDS: ACETAMINOPHEN/HYDROcodone 325 MG/5 MG TAB PO PRN (05:55)
[2017-04-25] MEDS: methylPREDNISolone SOD SUCC 125 MG/2 ML VIAL IV PUSH SCH ×2 (05:55→12:05)
[2017-04-25 08:00] VITALS: BP 135/96; PULSE 95; RESP 20; TEMP 96.4; O2SAT 96
[2017-04-25] MEDS: INSULIN ASPART SUPPLEMENTAL SCALE SQ SCH ×2 (08:17→12:19)
[2017-04-25] MEDS: CLOPIDOGREL 75 MG TAB PO SCH (08:18)
[2017-04-25] MEDS: CARVEDILOL 3.125 MG TAB PO SCH (08:18)
[2017-04-25] MEDS: DOCUSATE SODIUM 50 MG/SENNA 8.6 MG TAB PO SCH (08:19)
[2017-04-25] MEDS: FUROSEMIDE 40 MG TAB PO SCH (08:19)
[2017-04-25] MEDS: PRAVASTATIN SOD 20 MG TAB PO SCH (08:19)
[2017-04-25] MEDS: LOSARTAN 50 MG TAB PO SCH (08:19)
[2017-04-25] MEDS: ASPIRIN EC 81 MG TABEC PO SCH (08:19)
[2017-04-25] MEDS: metFORMIN HCL 500 MG TAB PO SCH (08:20)
[2017-04-25] MEDS: GABAPENTIN 300 MG CAP PO SCH ×2 (08:20→12:04)
[2017-04-25] MEDS: SODIUM CHLORIDE 0.9% FLUSH 10 ML FLUSH IV FLUSH SCH (08:21)
[2017-04-25 09:49] VITALS: O2SAT 96
[2017-04-25 09:54] VITALS: O2SAT 94
[2017-04-25] MEDS: LEVOFLOXACIN 750 MG TAB PO SCH (10:18)
[2017-04-25] MEDS: ENOXAPARIN SODIUM 40 MG/0.4 ML SYRINGE SQ SCH (10:19)
[2017-04-25] MEDS ORDERED: VENTAER INH (12:02)
[2017-04-25] MEDS ORDERED: LEVA500T20 PO (12:02)
[2017-04-25] MEDS ORDERED: HYDR-3516 PO (12:02)
[2017-04-25] MEDS ORDERED: MEDR4PAK PO (12:02)
--- NOTE | 2017-04-25 12:50 | HHI.DS ---
Discharge Summary Admission Date Apr 23, 2017 at 07:13 Discharge Date: Apr 25, 2017 Admitting Diagnosis bronchitis, congestive heart failure, hypoxemia, sepsis (1) Hypoxemia ICD Code: R09.02 - Hypoxemia Status: Acute (2) Chronic obstructive pulmonary disease ICD Code: J44.9 - Chronic obstructive pulmonary disease, unspecified Status: Acute (3) Systemic inflammatory response syndrome ICD Code: R65.10 - Systemic inflammatory response syndrome (SIRS) of non- infectious origin without acute organ dysfunction Status: Acute (4) CHF (congestive heart failure) ICD Code: I50.9 - Heart failure, unspecified Status: Chronic (5) Hypertension ICD Code: I10 - Hypertension Status: Chronic (6) Coronary artery disease ICD Code: I25.10 - Coronary artery disease Status: Chronic (7) Diabetes mellitus ICD Code: E11.9 - Type 2 diabetes mellitus without complications Status: Chronic (8) Cardiomyopathy ICD Code: I42.9 - Cardiomyopathy Status: Chronic (9) Leukocytosis ICD Code: D72.829 - Elevated white blood cell count, unspecified Status: Acute (10) Bronchitis ICD Code: J40 - Bronchitis, not specified as acute or chronic Status: Acute Procedures None Brief History - From Admission This is a pleasant 51-year-old female with past medical history of COPD, CHF with ejection fraction of 30-35%, type 2 diabetes who presents to the ER complaining of a three-day history of sore throat, cough and one-day history of dyspnea. The patient states that recently her friend was sick with a cold followed by her son, and then she started to develop sore throat 3 days ago followed by severe cough productive of sputum. She did not note any fevers at home however temperature here is 101. The patient could not stop coughing and was feeling short of breath and so her son encouraged her to come to the emergency department. No aggravating or alleviating factors. She was found to be hypoxemic on room air with O2 sat of 88% as well as had a fever, was mildly tachycardic and white blood cell count was elevated at 16,000. She was given 1 g of Rocephin IV along with 125 mg of Solu-Medrol IV. Chest x-ray showed cardiomegaly but lung serrano were clear. CBC/BMP: 04/23/17 0615 04/23/17 0615 Significant Findings Laboratory Tests Test 04/23/17 06:15 04/23/17 06:26 04/23/17 14:30 White Blood Count 16.6 TH/MM3 (4.0-11.0) Neutrophils (%) (Auto) 81.0 % (16.0-70.0) Lymphocytes (%) (Auto) 7.2 % (9.0-44.0) Basophils (%) (Auto) 4.8 % (0.0-2.0) Neutrophils # (Auto) 13.5 TH/MM3 (1.8-7.7) Monocytes # (Auto) 1.0 TH/MM3 (0-0.9) Basophils # (Auto) 0.8 TH/MM3 (0-0.2) Random Glucose 152 MG/DL (74-106) Albumin 3.1 GM/DL (3.4-5.0) Calcium Level 8.1 MG/DL (8.5-10.1) Estimat Glomerular Filtration Rate 78 ML/MIN (>89) B-Type Natriuretic Peptide 1174 PG/ML (0-100) Blood Gas HCO3 31 mmol/L (22-26) Blood Gas Base Excess 7.5 mmol/L (-2-2) Blood Gas Oxygen Saturation 84 % (90-100) Arterial Blood pH 7.48 (7.380-7.420) Arterial Blood Partial Pressure CO2 43 mmHG (38-42) Arterial Blood Partial Pressure O2 51 mmHG (61-120) Urine Protein 30 mg/dL (NEG-TRACE) Urine Glucose (UA) 500 mg/dL (NEG) Urine Occult Blood TRACE (NEG) Urine Nitrite POS (NEG) Urine RBC 4-9 /hpf (0-3) Urine WBC 20-24 /hpf (0-5) Urine WBC Clumps FEW (NONE) Urine Squamous Epithelial Cells > 8 /hpf (0-5) Urine Bacteria MOD /hpf (NONE) Imaging Last Impressions Chest X-Ray 04/23/17 0557 Signed Impressions: Service Date/Time: April 06:38 - CONCLUSION: 1. Moderate cardiomegaly. 2. Clear lungs. Domingo Cotton Jr., MD PE at Discharge GENERAL: Well-nourished, well-developed patient. SKIN: Warm and dry. HEAD: Normocephalic. EYES: No scleral icterus. No injection or drainage. NECK: Supple, trachea midline. No JVD or lymphadenopathy. CARDIOVASCULAR: Regular rate and rhythm without murmurs, gallops, or rubs. RESPIRATORY: Breath sounds equal bilaterally. Clear to auscultation bilaterally. No accessory muscle use. GASTROINTESTINAL: Abdomen soft, non-tender, nondistended. EXTREMITIES: No cyanosis, or edema. NEUROLOGICAL: Awake, alert, and oriented x 3. Non-focal. Pt update on day of discharge The patient is not on oxygen. She states she feels great and would like to go home. Hospital Course The patient was admitted to the hospital and treated with steroids, bronchodilators and antibiotics. Influenza was negative. The patient made significant improvement and is now on room air not requiring oxygen with ambulation. No wheezing on exam. The patient will be discharged home today with prescription for Levaquin, Medrol Dosepak and albuterol inhaler. She is to follow-up with her primary care physician this week. Pt Condition on Discharge: Stable Discharge Disposition: Discharge Home Discharge Time: <= 30 minutes Discharge Instructions DIET: Follow Instructions for: Diabetic Diet Activities you can perform: Regular-No Restrictions Follow up Referrals: PCP Follow-up - 3-5 Days New Medications: Albuterol 18 GM Inh (Ventolin Hfa 18 GM Inh) 90 Mcg/Act Aer 2 PUFF INH Q4-6H PRN for SHORTNESS OF BREATH, #1 INHALER 0 Refills Levofloxacin (Levaquin) 500 Mg Tablet 500 MG PO DAILY for Infection, #5 TAB 0 Refills Methylprednisolone Dosepak (Medrol Dosepak) 4 Mg Dspk 4 MG PO DIRECTED, #1 DSPK 0 Refills Per Pharmacist direction Hydrocodone-Acetaminophen (Hydrocodone-Acetaminophen) 5-325 mg Tab 1 TAB PO Q4H PRN for headache, #6 TAB Continued Medications: Amlodipine (Amlodipine) 10 Mg Tab 10 MG PO DAILY for Blood Pressure Management, #30 TAB [address] (Aspirin 81) 81 Mg Tabdr 81 MG PO DAILY, TAB 0 Refills Carvedilol (Carvedilol) 3.125 Mg Tab 3.125 MG PO BID, #60 TAB 0 Refills Clopidogrel (Plavix) 75 Mg Tab 75 MG PO DAILY for Blood Clot Prevention, #30 TAB 0 Refills Cyclobenzaprine (Flexeril) 10 Mg Tab 10 MG PO DAILY PRN for MUSCLE SPASM, #90 TAB 0 Refills Furosemide (Furosemide) 40 Mg Tab 40 MG PO BID, #60 TAB 0 Refills Gabapentin (Gabapentin) 600 Mg Tab 600 MG PO TID, #90 TAB 0 Refills Losartan (Losartan) 50 Mg Tab 50 MG PO DAILY for Blood Pressure Management, #30 TAB 0 Refills Lovastatin (Lovastatin) 20 Mg Tab 20 MG PO DAILY for Cholesterol Management, #30 TAB 0 Refills Metformin (Glucophage) 1,000 Mg Tab 1000 MG PO BIDPC for Blood Sugar Management, #60 TAB 0 Refills With a meal Juanita Wahl MD Apr 25, 2017 12:49
== END 2017-04-25 13:33 | disposition home or self-care (01) | DRG 191 ==
LOC: PHED 05:26 → PHEDA 07:13 → PHICU 08:27 → PH3B 04-24 08:14
PROVIDERS: ADMIT Family Medicine; ATTEND Family Medicine
DX: J44.1 Chronic obstructive pulmonary disease with (acute) exacerbation (principal); I50.22 Chronic systolic (congestive) heart failure; I11.0 Hypertensive heart disease with heart failure; R09.02 Hypoxemia; I25.5 Ischemic cardiomyopathy; I25.10 Atherosclerotic heart disease of native coronary artery without angina pectoris; Z95.5 Presence of coronary angioplasty implant and graft; E11.9 Type 2 diabetes mellitus without complications; G62.9 Polyneuropathy, unspecified; J40 Bronchitis, not specified as acute or chronic; E78.00 Pure hypercholesterolemia, unspecified; G47.30 Sleep apnea, unspecified; I25.2 Old myocardial infarction; K21.9 Gastro-esophageal reflux disease without esophagitis; Z79.02 Long term (current) use of antithrombotics/antiplatelets; Z79.82 Long term (current) use of aspirin; Z87.442 Personal history of urinary calculi; Z87.891 Personal history of nicotine dependence; F41.8 Other specified anxiety disorders; Z90.710 Acquired absence of both cervix and uterus
CPT/HCPCS: 36600; 71020; 80053; 81001; 82805; 82948; 83605; 83880; 84484; 85025; 87040; 87070; 87086; 87205; 87804; 90686; 93005; 94150; 94620; 94640; 94664; 96374; J0696; J1650; J1815; J1940; J2930; Q2038

== ENCOUNTER 2017-06-10 17:18 | Emergency (ER) | payer MEDICAID ==
[~2017-06-10] VITALS: Ht 152.4 cm; Wt 88.0 kg
[~2017-06-10 17:18] MED LIST changes: -ASPI-110 PO; +ASPI1TAB57 PO; +CYCL10TA PO; -CYCL1TAB29 PO; +HYDR-3516 PO; -HYDR-3533 PO; +LEVA500T33 PO; +MEDR4PAK PO; +VENTAER INH
[2017-06-10 17:27] VITALS: BP 139/87; PULSE 99; RESP 16; TEMP 98.6; O2SAT 92
[2017-06-10] MEDS ORDERED: GLIP5TAB8 PO (17:50)
[2017-06-10] MEDS ORDERED: BACT800T5 PO (18:35)
[2017-06-10] MEDS ORDERED: MUPI2%T TOPICAL (18:35)
--- NOTE | 2017-06-10 18:36 | PD ---
HPI . Impetigo Chief Complaint: Skin Problem Time Seen by Provider: 17:56 Travel History International Travel<30 days: No Contact w/Intl Traveler<30days: No Traveled to known affect area: No History of Present Illness HPI 51-year-old female presents emergency department for evaluation of a honey colored lesion on the left lateral aspect of her left breast. Patient states the lesion is in full and itchy. There is no purulent drainage or area of erythema surrounding it. Patient denies any fevers, chills, chest pain, shortness breath, abdominal pain, nausea, vomiting, diarrhea. She has no systemic symptoms. Patient's only major medical history of diabetes and hypertension. PFSH Past Medical History Hx Anticoagulant Therapy: Yes (ASA) Arthritis: Yes Asthma: Yes Autoimmune Disease: No Anxiety: Yes Depression: Yes Heart Rhythm Problems: No Cancer: No Cardiovascular Problems: Yes ([place] X2) High Cholesterol: Yes Chemotherapy: No Congestive Heart Failure: Yes COPD: Yes Coronary Artery Disease: Yes Diabetes: Yes Patient Takes Glucophage: No Diminished Hearing: No Endocrine: Yes Gastrointestinal Disorders: Yes GERD: Yes Genitourinary: Yes (KIDNEY STONES) Hypertension: Yes Immune Disorder: No Implanted Vascular Access Dvce: Yes Kidney Stones: Yes Musculoskeletal: Yes Neurologic: No Psychiatric: No Reproductive: No Respiratory: Yes (ASTHMA COPD) Immunizations Current: Yes Myocardial Infarction: Yes (X's 2) Radiation Therapy: No Renal Failure: No Sleep Apnea: Yes Tetanus Vaccination: < 5 Years Influenza Vaccination: Yes ?: Not Menopausal: Yes : 3 Para: 2 : 1 Tubal Ligation: Yes Past Surgical History Abdominal Surgery: Yes Body Medical Devices: Lap band, Novasure Cardiac Surgery: Yes (stents) Section: Yes (X's 1) Gynecologic Surgery: Yes (ablasion) Other Surgery: Yes (LAP BAND, ) Social History Alcohol Use: No Tobacco Use: Yes (OCASIONALLY) Substance Use: No Allergies-Medications (Allergen,Severity, Reaction): Coded Allergies: No Known Allergies (Verified Adverse Reaction, Unknown, 06/10/17) Reported Meds & Prescriptions Reported Meds & Active Scripts Active Bactrim DS (Sulfamethoxazole-Trimethoprim) 800-160 Mg Tab 1 Tab PO BID 7 Days Bactroban Topical (Mupirocin) 22 Gm Cream 1 Applic TOPICAL BID Ventolin Hfa 18 GM Inh (Albuterol Sulfate) 90 Mcg/Act Aer 2 Puff INH Q4-6H PRN Reported Glipizide 5 Mg Tab 2.5 Mg PO BIDAC Take 30 minutes before a meal Amlodipine (Amlodipine Besylate) 10 Mg Tab 10 Mg PO DAILY Furosemide 40 Mg Tab 40 Mg PO BID Losartan (Losartan Potassium) 50 Mg Tab 50 Mg PO DAILY Carvedilol 3.125 Mg Tab 3.125 Mg PO BID Glucophage (Metformin HCl) 1,000 Mg Tab 1,000 Mg PO BIDPC With a meal Gabapentin 600 Mg Tab 600 Mg PO TID Plavix (Clopidogrel Bisulfate) 75 Mg Tab 75 Mg PO DAILY Lovastatin 20 Mg Tab 20 Mg PO DAILY Aspirin 81 (Aspirin) 81 Mg Tabdr 81 Mg PO DAILY Review of Systems Except as stated in HPI: all other systems reviewed are Neg Physical Exam Narrative GENERAL: Well-nourished, well-developed 51-year-old female patient in no acute distress. Nontoxic appearing. SKIN: 1cm 1 cm honey colored lesion to the left lateral left breast. HEAD: Normocephalic. Atraumatic. EYES: No scleral icterus. No injection or drainage. NECK: Supple, trachea midline. No JVD or lymphadenopathy. CARDIOVASCULAR: Regular rate and rhythm without murmurs, gallops, or rubs. RESPIRATORY: Breath sounds equal bilaterally. No accessory muscle use. GASTROINTESTINAL: Abdomen soft, non-tender, nondistended. MUSCULOSKELETAL: No cyanosis, or edema. BACK: Nontender without obvious deformity. No CVA tenderness. Data Data Last Documented VS Vital Signs Date Time Temp Pulse Resp B/P (MAP) Pulse Ox O2 Delivery O2 Flow Rate FiO2 06/10/17 17:27 98.6 99 16 139/87 (104) 92 Orders Orders Ed Discharge Order (06/10/17 18:36) [facility] Medical Decision Making Medical Screen Exam Complete: Yes Emergency Medical Condition: Yes Differential Diagnosis Differential diagnoses include cellulitis, impetigo, bug bite, dermatitis Narrative Course 51-year-old female presents emergency department for evaluation of an itchy and painful lesion to her left lateral left breast that has been there for 6 days. Patient denies any fevers, chills, malaise. Patient's only major medical history is diabetes and hypertension. There is no area of erythema or purulent drainage coming from the lesion. The physical exam is consistent with impetigo. Patient is treated with mupirocin and Bactrim and discharged home with instructions to follow-up with her primary care return to the emergency Department with any worsening condition. Diagnosis Primary Impression: Impetigo Referrals: Primary Care Physician Patient Instructions: General Instructions, Impetigo (DC) Additional Instructions: Please return to emergency department if your symptoms return or worsen. Follow up with your primary care provider. Take medications as prescribed. Keep area clean and dry. May take ibuprofen or Tylenol as needed for pain or fever. Med/Other Pt SpecificInfo: Prescription(s) given Scripts Sulfamethoxazole-Trimethoprim (Bactrim DS) 800-160 Mg Tab 1 TAB PO BID for Infection for 7 Days, #14 TAB 0 Refills Prov: Rocío Mendes 06/10/17 Mupirocin Topical (Bactroban Topical) 22 Gm Cream 1 APPLIC TOPICAL BID for Mgmt Bacterial Infection, #1 TUBE 0 Refills Prov: Rocío Mendes 06/10/17 Disposition: 01 DISCHARGE HOME Condition: Stable Rocío Mendes Jun 10, 2017 18:36
== END 2017-06-10 18:43 | disposition home or self-care (01) ==
LOC: PHEFT 17:18
DX: L01.00 Impetigo, unspecified (principal); E11.9 Type 2 diabetes mellitus without complications; Z79.84 Long term (current) use of oral hypoglycemic drugs
CPT/HCPCS: 99284

== ENCOUNTER 2017-10-13 00:31 | Inpatient (IN) | payer MEDICAID ==
[~2017-10-13] VITALS: Ht 152.4 cm; Wt 92.1 kg
[2017-10-13] VITALS (11 sets, daily range): BP systolic 108–138; BP diastolic 56–86; PULSE 85–110; RESP 16–22; TEMP 92.1–98.6; O2SAT 91–96
[~2017-10-13 00:31] MED LIST changes: +BACT800T5 PO; -CYCL10TA PO; +GLIP5TAB8 PO; -HYDR-3516 PO; -LEVA500T33 PO; -MEDR4PAK PO; +MUPI2%T TOPICAL
[2017-10-13] MEDS ORDERED: methylPREDNISolone SOD SUCC 125 MG/2 ML VIAL IV PUSH ONE (00:45)
[2017-10-13] MEDS ORDERED: SODIUM CHLORIDE 0.9% FLUSH 10 ML FLUSH IVF PRN (00:45)
[2017-10-13] MEDS: RESP: ALBUTEROL 2.5 MG/IPRATROPIUM 0.5 MG NEB (SCH) INH ×2 (00:53→00:54)
[2017-10-13 01:01] LABS: AUTOMATED NEUTROPHIL # 4.1 TH/MM3 (1.8-7.7); BASOPHIL % 0.4 % (0.0-2.0); EOSINOPHIL # 0.3 TH/MM3 (0-0.4); HEMATOCRIT 37.9 % (35.0-46.0); HEMOGLOBIN 12.5 GM/DL (11.6-15.3); LYMPH % 23.2 % (9.0-44.0); LYMPHOCYTE # 1.6 TH/MM3 (1.0-4.8); MEAN CELL VOLUME 89.3 FL (80.0-100.0); MEAN CORPUSCULAR HEMOGLOBIN 29.5 PG (27.0-34.0); MEAN PLATELET VOLUME 8.9 FL (7.0-11.0); MONO % 13.6 % (0.0-8.0); MONOCYTE # 0.9 TH/MM3 (0-0.9); NEUT % 57.8 % (16.0-70.0); PLATELET COUNT 186 TH/MM3 (150-450); RED BLOOD COUNT 4.24 MIL/MM3 (4.00-5.30); RED CELL DISTRIBUTION WIDTH 14.6 % (11.6-17.2); WHITE BLOOD COUNT 6.9 TH/MM3 (4.0-11.0)
[2017-10-13 01:07] LABS: CHLORIDE 102 MEQ/L (98-107); SODIUM (NA) 143 MEQ/L (136-145)
[2017-10-13 01:10] LABS: ALBUMIN 3.1 GM/DL (3.4-5.0); BICARBONATE 32.8 MEQ/L (21.0-32.0); GLUCOSE,RANDOM 165 MG/DL (74-106)
[2017-10-13 01:11] LABS: BLOOD UREA NITROGEN 16 MG/DL (7-18)
[2017-10-13 01:13] LABS: ALT (GPT) 14 U/L (10-53)
[2017-10-13 01:14] LABS: AST (GOT) 11 U/L (15-37); GLOMERULAR FILTRATION RATE 52 ML/MIN (>89)
[2017-10-13 01:15] LABS: TOTAL BILIRUBIN ADULT 0.1 MG/DL (0.2-1.0); TOTAL PROTEIN 6.9 GM/DL (6.4-8.2)
[2017-10-13 01:16] LABS: ALKALINE PHOSPHATASE 103 U/L (45-117)
[2017-10-13 01:18] LABS: TROPONIN I 0.05 NG/ML (0.02-0.05)
--- NOTE | 2017-10-13 01:18 | RADRPT ---
EXAM DATE/TIME: 10/13/2017 00:42 [facility] COMPARISON: CHEST PA & LAT, April 23, 2017, 6:38. INDICATIONS : Shortness of breath. MEDICAL HISTORY : Myocardial infarction. Congestive heart failure. Chronic obstructive pulmonary disease. Asthma. H ypertension. Sleep apnea. GERD. Diabetic. SURGICAL HISTORY : Cardiac cath. ENCOUNTER: Initial ACUITY: 1 day PAIN SCORE: 0/10 LOCATION: Bilateral chest FINDINGS: PA and on to the chest show moderate cardiomegaly. Linear atelectasis within the left upper lobe. Pat michelle consolidation within the right lung base. No effusions. Degenerative spine. CONCLUSION: 1. Cardiomegaly without significant pulmonary vascular engorgement. 2. Right lower lobe infiltrate. Domingo Cotton Jr., MD on October 13, 2017 at 1:15 Board Certified Radiologist. This report was verified electronically.
--- NOTE | 2017-10-13 01:29 | PD ---
HPI Chief Complaint: Respiratory Symptoms Time Seen by Provider: 00:36 Travel History International Travel<30 days: No Contact w/Intl Traveler<30days: No Traveled to known affect area: No History of Present Illness HPI The patient is a 52-year-old female that complains of short of breath for 3 days. 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 She does have a history of COPD. She does not have oxygen at home. She denies any fever. She denies any chest pain. The patient states he has cardiac stents and takes Plavix because of this. PFSH Past Medical History Hx Anticoagulant Therapy: Yes (ASA) Arthritis: Yes Asthma: Yes Autoimmune Disease: No Anxiety: Yes Depression: Yes Heart Rhythm Problems: No Cancer: No Cardiovascular Problems: Yes ([place] X2) High Cholesterol: Yes Chemotherapy: No Congestive Heart Failure: Yes COPD: Yes Coronary Artery Disease: Yes Diabetes: Yes Patient Takes Glucophage: Yes Diminished Hearing: No Endocrine: Yes Gastrointestinal Disorders: Yes GERD: Yes Genitourinary: Yes (KIDNEY STONES) Hypertension: Yes Immune Disorder: No Implanted Vascular Access Dvce: Yes Kidney Stones: Yes Musculoskeletal: Yes Neurologic: No Psychiatric: No Reproductive: No Respiratory: Yes (ASTHMA COPD) Immunizations Current: Yes Myocardial Infarction: Yes (X's 2) Radiation Therapy: No Renal Failure: No Sleep Apnea: Yes ?: Not Menopausal: Yes : 3 Para: 2 : 1 Tubal Ligation: Yes Past Surgical History Abdominal Surgery: Yes Body Medical Devices: Lap band, Novasure Cardiac Surgery: Yes (stents) Section: Yes (X's 1) Gynecologic Surgery: Yes (ablasion) Other Surgery: Yes (LAP BAND, ) Social History Alcohol Use: No Tobacco Use: Yes (OCASIONALLY) Substance Use: No Allergies-Medications (Allergen,Severity, Reaction): Coded Allergies: No Known Allergies (Verified Adverse Reaction, Unknown, 06/10/17) Reported Meds & Prescriptions Reported Meds & Active Scripts Active Bactrim DS (Sulfamethoxazole-Trimethoprim) 800-160 Mg Tab 1 Tab PO BID 7 Days Bactroban Topical (Mupirocin) 22 Gm Cream 1 Applic TOPICAL BID Ventolin Hfa 18 GM Inh (Albuterol Sulfate) 90 Mcg/Act Aer 2 Puff INH Q4-6H PRN Reported Glipizide 5 Mg Tab 2.5 Mg PO BIDAC Take 30 minutes before a meal Amlodipine (Amlodipine Besylate) 10 Mg Tab 10 Mg PO DAILY Furosemide 40 Mg Tab 40 Mg PO BID Losartan (Losartan Potassium) 50 Mg Tab 50 Mg PO DAILY Carvedilol 3.125 Mg Tab 3.125 Mg PO BID Glucophage (Metformin HCl) 1,000 Mg Tab 1,000 Mg PO BIDPC With a meal Gabapentin 600 Mg Tab 600 Mg PO TID Plavix (Clopidogrel Bisulfate) 75 Mg Tab 75 Mg PO DAILY Lovastatin 20 Mg Tab 20 Mg PO DAILY Aspirin 81 (Aspirin) 81 Mg Tabdr 81 Mg PO DAILY Review of Systems Except as stated in HPI: all other systems reviewed are Neg Physical Exam Narrative GENERAL: The patient is alert, oriented 3 in slight respiratory distress. Her vital signs show heart rate 105 but otherwise normal. SKIN: Focused skin assessment warm/dry. No skin rash is seen. HEAD: Atraumatic. Normocephalic. EYES: Pupils equal and round. No scleral icterus. No injection or drainage. ENT: No nasal bleeding or discharge. Mucous membranes pink and moist. NECK: Trachea midline. No JVD. CARDIOVASCULAR: Regular rate and rhythm. No murmur appreciated. RESPIRATORY: No accessory muscle use. Scattered wheezes are heard in all lung serrano along with rhonchi. Breath sounds equal bilaterally. Diminished breath sounds are heard bilaterally. GASTROINTESTINAL: Abdomen soft, non-tender, nondistended. Hepatic and splenic margins not palpable. MUSCULOSKELETAL: No obvious deformities. No clubbing. No cyanosis. No edema. NEUROLOGICAL: Awake and alert. No obvious cranial nerve deficits. Motor grossly within normal limits. Normal speech. PSYCHIATRIC: Appropriate mood and affect; insight and judgment normal. Data Data Last Documented VS Vital Signs Date Time Temp Pulse Resp B/P (MAP) Pulse Ox O2 Delivery O2 Flow Rate FiO2 10/13/17 01:27 91 Nasal Cannula 3.00 10/13/17 00:46 98.6 105 18 110/85 (93) Orders Orders Complete Blood Count With Diff (10/13/17 00:36) Comprehensive Metabolic Panel (10/13/17 00:36) B-Type Natriuretic Peptide (10/13/17 00:36) Troponin I (10/13/17 00:36) Influenzae A/B Antigen (10/13/17 00:36) Iv Access Insert/Monitor (10/13/17 00:36) Electrocardiogram (10/13/17 00:36) Ecg Monitoring (10/13/17 00:36) Oximetry (10/13/17 00:36) Oxygen Administration (10/13/17 00:36) Sodium Chloride 0.9% Flush (Ns Flush) (10/13/17 00:45) Methylprednisolone So Succ Inj (Solumedr (10/13/17 00:45) Albuterol-Ipratropium Neb (Duoneb Neb) (10/13/17 00:45) Chest, Pa & Lat (10/13/17 00:39) Arterial Blood Gas (Abg) (10/13/17 ) Place In Observation (10/13/17 ) Vital Signs (Adult) Q4H (10/13/17 01:46) Activity Oob With Assistance (10/13/17 01:46) Wind Operations Manager / Telemetry .CONTINUOUS (10/13/17 01:46) Diet Heart Healthy (10/13/17 Breakfast) Sodium Chloride 0.9% Flush (Ns Flush) (10/13/17 02:00) Sodium Chloride 0.9% Flush (Ns Flush) (10/13/17 09:00) Basic Metabolic Panel (Bmp) (10/14/17 06:00) Complete Blood Count With Diff (10/14/17 06:00) Naloxone Inj (Narcan Inj) (10/13/17 02:00) Albuterol-Ipratropium Neb (Duoneb Neb) (10/13/17 04:00) Albuterol-Ipratropium Neb (Duoneb Neb) (10/13/17 02:00) Levofloxacin 750 Mg Premix Inj (Levaquin (10/13/17 02:00) Blood Culture (10/13/17 01:46) Ceftriaxone Inj (Rocephin Inj) (10/13/17 02:00) Azithromycin Inj (Zithromax Inj) (10/13/17 02:00) Labs Laboratory Tests Test 10/13/17 00:43 10/13/17 00:57 White Blood Count 6.9 TH/MM3 Red Blood Count 4.24 MIL/MM3 Hemoglobin 12.5 GM/DL Hematocrit 37.9 % Mean Corpuscular Volume 89.3 FL Mean Corpuscular Hemoglobin 29.5 PG Mean Corpuscular Hemoglobin Concent 33.0 % Red Cell Distribution Width 14.6 % Platelet Count 186 TH/MM3 Mean Platelet Volume 8.9 FL Neutrophils (%) (Auto) 57.8 % Lymphocytes (%) (Auto) 23.2 % Monocytes (%) (Auto) 13.6 % Eosinophils (%) (Auto) 5.0 % Basophils (%) (Auto) 0.4 % Neutrophils # (Auto) 4.1 TH/MM3 Lymphocytes # (Auto) 1.6 TH/MM3 Monocytes # (Auto) 0.9 TH/MM3 Eosinophils # (Auto) 0.3 TH/MM3 Basophils # (Auto) 0.0 TH/MM3 CBC Comment DIFF FINAL Differential Comment Blood Urea Nitrogen 16 MG/DL Creatinine 1.10 MG/DL Random Glucose 165 MG/DL Total Protein 6.9 GM/DL Albumin 3.1 GM/DL Calcium Level 8.0 MG/DL Alkaline Phosphatase 103 U/L Aspartate Amino Transf (AST/SGOT) 11 U/L Alanine Aminotransferase (ALT/SGPT) 14 U/L Total Bilirubin 0.1 MG/DL Sodium Level 143 MEQ/L Potassium Level 3.7 MEQ/L Chloride Level 102 MEQ/L Carbon Dioxide Level 32.8 MEQ/L Anion Gap 8 MEQ/L Estimat Glomerular Filtration Rate 52 ML/MIN Troponin I 0.05 NG/ML B-Type Natriuretic Peptide 396 PG/ML Blood Gas Puncture Site RT RADIAL Blood Gas Patient Temperature 98.6 Blood Gas HCO3 32 mmol/L Blood Gas Base Excess 7.4 mmol/L Blood Gas Oxygen Saturation 83 % Arterial Blood pH 7.42 Arterial Blood Partial Pressure CO2 51 mmHG Arterial Blood Partial Pressure O2 53 mmHG Arterial Blood Oxygen Content 14.4 Vol % Arterial Blood Carboxyhemoglobin 1.7 % Arterial Blood Methemoglobin 1.3 % Blood Gas Hemoglobin 12.3 G/DL Blood Gas Inspired Oxygen 21 % MDM Medical Decision Making Medical Screen Exam Complete: Yes Emergency Medical Condition: Yes Medical Record Reviewed: Yes Interpretation(s) EKG shows left bundle branch block with a sinus tachycardia of 103. No acute changes noted on EKG. The blood gases show pH 7.42, CO2 51, PO2 53 with O2 sat 83% on room air. The CBC is normal. The complete metabolic profile shows a GFR of 52, creatinine 1.1, glucose 165 with albumin 3.1 and calcium 8.0 and bicarb of 32.8 but is otherwise unremarkable. The troponin I is normal. The BNP is 396. The influenza A/B antigen is negative for flu a and flu B antigen. The chest x-ray shows cardiomegaly without significant pulmonary vascular engorgement. It also shows a right lower lobe infiltrate. Differential Diagnosis COPD with acute exacerbation, pneumonia, hypoxemia, bronchitis, electrolyte disorder, congestive heart failure Narrative Course The patient has a right lower lobe pneumonia with congestive heart failure. She is also hypoxemic. The patient apparently has COPD and apparently is used to high CO2 levels. She was put on 3 L nasal cannula and is satting 91% on oximetry now. The blood gases were done after 3 DuoNeb treatments. She is alert and oriented. Plan: The patient will be admitted to the [facility], Dr. Bateman. Physician Communication Physician Communication I discussed the patient with Dr. Bateman, the patient will be admitted to her. Diagnosis Primary Impression: Right lower lobe pneumonia Additional Impressions: CHF (congestive heart failure) Hypoxemia Admitting Information Admitting Physician Requests: Admit Mahad Houston MD Oct 13, 2017 01:28
[2017-10-13] MEDS ORDERED: AZITHROMYCIN INJ 500 MG in SODIUM CHLOR 0.9% 250 ML INJ 250 ML IV ONE (02:00)
[2017-10-13] MEDS ORDERED: LEVOFLOXACIN 750 MG PREMIX INJ 150 ML IV SCH ×2 (02:00→03:00)
[2017-10-13] MEDS ORDERED: cefTRIAXone INJ 1,000 MG in SODIUM CHLORIDE 0.9% INJ 100 ML IV ONE (02:00)
[2017-10-13] MEDS ORDERED: SODIUM CHLORIDE 0.9% FLUSH 10 ML FLUSH IV FLUSH PRN (02:00)
[2017-10-13] MEDS ORDERED: NALOXONE HCL 0.4 MG/ML AMP IV PUSH PRN (02:00)
[2017-10-13] MEDS ORDERED: RESP: ALBUTEROL 2.5 MG/IPRATROPIUM 0.5 MG NEB (SCH) NEB (04:00)
[2017-10-13] MEDS: RESP: ALBUTEROL 2.5 MG/IPRATROPIUM 0.5 MG NEB (PRN) NEB ×2 (07:41→18:40)
[2017-10-13] MEDS: RESP: ALBUTEROL 2.5 MG/IPRATROPIUM 0.5 MG NEB (SCH) NEB ×3 (07:42→20:27)
[2017-10-13] MEDS: SODIUM CHLORIDE 0.9% FLUSH 10 ML FLUSH IV FLUSH SCH ×2 (09:56→20:50)
--- NOTE | 2017-10-13 10:27 | HHI.HP ---
HPI Service [facility] Primary Care Physician Adrian Contreras DO Admission Diagnosis Right lower lobe pneumonia, hypoxemia, congestive heart failure Diagnoses: Chief Complaint: Shortest of breath Travel History International Travel<30 Days: No Contact w/Intl Traveler <30 Da: No Traveled to Known Affected Are: No History of Present Illness This is a 52-year-old female with history of asthma/COPD, arthritis, anxiety, WI , presenting with shortness of breath. Patient has been in her usual state of health until 3 days ago when she started having a cough productive with yellowish sputum associated with mild to moderate shortness of breath and wheezing. This is also associated with low- grade fever of 100.9 and orthopnea. There is no note of chest pain, headache, myalgia, arthralgia, rash abdominal pain, dysuria, leg edema, blurring of vision or loss of consciousness. Patient has not been monitoring her weight. She notes of leg edema when she is not taking her Lasix but there is no note of leg edema in the last few days. She has been compliant with her Lasix. She does not have any oxygen at home. There is history of sick contact with patient 's son. Review of Systems ROS Limitations: Other (All other pertinent systems were reviewed and are negative.) Past Family Social History Past Medical History Anxiety Depression Arthritis Asthma Coronary artery disease status post [place] Dyslipidemia CHF COPD Diabetes mellitus GERD Nephrolithiasis Hypertension Sleep apnea Past Surgical History Lap band Coronary stenting Started section Reported Medications Ventolin Hfa 18 GM Inh (Albuterol Sulfate) 90 Mcg/Act Aer 2 Puff INH Q4-6H PRN Glipizide 5 Mg Tab 2.5 Mg PO BIDAC Take 30 minutes before a meal Amlodipine (Amlodipine Besylate) 10 Mg Tab 10 Mg PO DAILY Furosemide 40 Mg Tab 40 Mg PO BID Losartan (Losartan Potassium) 50 Mg Tab 50 Mg PO DAILY Carvedilol 3.125 Mg Tab 3.125 Mg PO BID Glucophage (Metformin HCl) 1,000 Mg Tab 1,000 Mg PO BIDPC With a meal Gabapentin 600 Mg Tab 600 Mg PO TID Plavix (Clopidogrel Bisulfate) 75 Mg Tab 75 Mg PO DAILY Lovastatin 20 Mg Tab 20 Mg PO DAILY Aspirin 81 (Aspirin) 81 Mg Tabdr 81 Mg PO DAILY Allergies: Coded Allergies: No Known Allergies (Verified Allergy, Unknown, 10/13/17) Social History Occasional tobacco use, no significant alcohol use. Physical Exam Vital Signs Vital Signs Date Time Temp Pulse Resp B/P (MAP) Pulse Ox O2 Delivery O2 Flow Rate FiO2 10/13/17 08:00 97.4 97 18 108/56 (73) 96 10/13/17 07:42 91 Nasal Cannula 3.00 10/13/17 03:22 10/13/17 03:22 92.1 110 22 130/82 (98) 91 10/13/17 02:30 98.2 102 22 125/75 (92) 91 Nasal Cannula 3.00 10/13/17 01:27 91 Nasal Cannula 3.00 10/13/17 01:10 92 Nasal Cannula 3.00 10/13/17 01:07 94 Nasal Cannula 5.00 10/13/17 01:04 94 Nasal Cannula 4.00 10/13/17 00:52 85 Room Air 10/13/17 00:46 98.6 105 18 110/85 (93) Physical Exam GENERAL: Not in acute distress, well-nourished., On oxygen. HEAD: Atraumatic. Normocephalic. No temporal or scalp tenderness. EYES: PERRL, full EOMs, no jaundice, nonicteric, pink conjunctivae without injection, moist mucosa ENT: Nose without bleeding, purulent drainage. Airway patent. NECK: Trachea midline, no mass, no obvious thyromegaly. No JVD or lymphadenopathy. CARDIOVASCULAR: Regular rate and rhythm without murmurs, gallops, or rubs. RESPIRATORY: Occasional wheezing, good breath sounds, no crackles. GASTROINTESTINAL: Abdomen soft, normal bowel sounds, non-tender, nondistended. No hepato-splenomegaly or palpable mass. No guarding. NICOLE and exam deferred. Obese. MUSCULOSKELETAL: Extremities without clubbing, cyanosis, or edema. Distal pulses intact, 2+ bilaterally. INTEGUMENTARY: Warm and dry, no rash of generalized distribution. NEUROLOGICAL: Awake, alert, oriented 3. No obvious cranial nerve deficits. Moves all 4 extremities, muscle strength testing 5 over 5. Motor and sensory grossly within normal limits. .Supple neck, no meningeal signs. Grossly negative cerebellar examination. No focal neurologic deficits. Laboratory ABG Test 10/13/17 00:57 Arterial Blood Carboxyhemoglobin 1.7 % Arterial Blood Methemoglobin 1.3 % Arterial Blood Oxygen Content 14.4 Vol % Arterial Blood Partial Pressure CO2 51 mmHG *H Arterial Blood Partial Pressure O2 53 mmHG *L Arterial Blood pH 7.42 Blood Gas Base Excess 7.4 mmol/L H Blood Gas HCO3 32 mmol/L H Blood Gas Hemoglobin 12.3 G/DL Blood Gas Inspired Oxygen 21 % Blood Gas Oxygen Saturation 83 % *L Laboratory Tests Test 10/13/17 00:43 10/13/17 00:57 White Blood Count 6.9 Red Blood Count 4.24 Hemoglobin 12.5 Hematocrit 37.9 Mean Corpuscular Volume 89.3 Mean Corpuscular Hemoglobin 29.5 Mean Corpuscular Hemoglobin Concent 33.0 Red Cell Distribution Width 14.6 Platelet Count 186 Mean Platelet Volume 8.9 Neutrophils (%) (Auto) 57.8 Lymphocytes (%) (Auto) 23.2 Monocytes (%) (Auto) 13.6 Eosinophils (%) (Auto) 5.0 Basophils (%) (Auto) 0.4 Neutrophils # (Auto) 4.1 Lymphocytes # (Auto) 1.6 Monocytes # (Auto) 0.9 Eosinophils # (Auto) 0.3 Basophils # (Auto) 0.0 CBC Comment DIFF FINAL Differential Comment Blood Urea Nitrogen 16 Creatinine 1.10 Random Glucose 165 Total Protein 6.9 Albumin 3.1 Calcium Level 8.0 Alkaline Phosphatase 103 Aspartate Amino Transf (AST/SGOT) 11 Alanine Aminotransferase (ALT/SGPT) 14 Total Bilirubin 0.1 Sodium Level 143 Potassium Level 3.7 Chloride Level 102 Carbon Dioxide Level 32.8 Anion Gap 8 Estimat Glomerular Filtration Rate 52 Troponin I 0.05 B-Type Natriuretic Peptide 396 Blood Gas Puncture Site RT RADIAL Blood Gas Patient Temperature 98.6 Blood Gas HCO3 32 Blood Gas Base Excess 7.4 Blood Gas Oxygen Saturation 83 Arterial Blood pH 7.42 Arterial Blood Partial Pressure CO2 51 Arterial Blood Partial Pressure O2 53 Arterial Blood Oxygen Content 14.4 Arterial Blood Carboxyhemoglobin 1.7 Arterial Blood Methemoglobin 1.3 Blood Gas Hemoglobin 12.3 Blood Gas Inspired Oxygen 21 Date/Time Source Procedure Growth Status 10/13/17 01:51 Blood Peripheral Aerobic Blood Culture Pending Received 10/13/17 01:51 Blood Peripheral Anaerobic Blood Culture Pending Received 10/13/17 00:43 Nasal Aspirate Influenza Types A,B Antigen (BONITA) - Final NEGATIVE FOR FLU A AND B ANTIGEN.... Complete Result Diagram: 10/13/17 0043 10/13/17 0043 Imaging Last Impressions Chest X-Ray 10/13/17 0039 Signed Impressions: Service Date/Time: Friday, October 13, 2017 00:42 - CONCLUSION: 1. Cardiomegaly without significant pulmonary vascular engorgement. 2. Right lower lobe infiltrate. MD Leticia Youssef Jr. VTE Risk Assessment Leticia VTE Risk Assessment: Mod/High Risk (score >= 2) Caprini Risk Assessment Model Point Value = 1 Point Value = 2 Point Value = 3 Point Value = 5 Age 41-60 Minor surgery BMI > 25 kg/m2 Swollen legs Varicose veins or History of unexplained or recurrent spontaneous Oral contraceptives or hormone replacement Sepsis (< 1 month) Serious lung disease, including pneumonia (< 1 month) Abnormal pulmonary function Acute myocardial infarction Congestive heart failure (< 1 month) History of inflammatory bowel disease Medical patient at bed rest Age 61-74 Arthroscopic surgery Major open surgery (> 45 min) Laparoscopic surgery (> 45 min) Malignancy Confined to bed (> 72 hours) Immobilizing plaster cast Central venous access Age >= 75 History of VTE Family history of VTE Factor V Leiden Prothrombin [id number] Lupus anticoagulant Anticardiolipin antibodies Elevated serum homocysteine Heparin-induced thrombocytopenia Other congenital or acquired thrombophilia Stroke (< 1 month) Elective arthroplasty Hip, pelvis, or leg fracture Acute spinal cord injury (< 1 month) Prophylaxis Regimen Total Risk Factor Score Risk Level Prophylaxis Regimen 0-1 Low Early ambulation 2 Moderate Order ONE of the following: *Sequential Compression Device (SCD) *Heparin 5000 units SQ BID 3-4 Higher Order ONE of the following medications: *Heparin 5000 units SQ TID *Enoxaparin/Lovenox 40 mg SQ daily (WT < 150 kg, CrCl > 30 mL/min) *Enoxaparin/Lovenox 30 mg SQ daily (WT < 150 kg, CrCl > 10-29 mL/min) *Enoxaparin/Lovenox 30 mg SQ BID (WT < 150 kg, CrCl > 30 mL/min) AND/OR *Sequential Compression Device (SCD) 5 or more Highest Order ONE of the following medications: *Heparin 5000 units SQ TID (Preferred with Epidurals) *Enoxaparin/Lovenox 40 mg SQ daily (WT < 150 kg, CrCl > 30 mL/min) *Enoxaparin/Lovenox 30 mg SQ daily (WT < 150 kg, CrCl > 10-29 mL/min) *Enoxaparin/Lovenox 30 mg SQ BID (WT < 150 kg, CrCl > 30 mL/min) AND *Sequential Compression Device (SCD) Assessment and Plan Assessment and Plan This is a 52-year-old female with history of coronary artery disease status post WI, COPD, asthma, and diabetes mellitus presenting with shortness of breath Community-acquired pneumonia-no leukocytosis, presented with shortness of breath , but with chest x-ray showing right lower lobe infiltrate, personally reviewed. She also presented with wheezing. No signs of CHF. Rapid flu negative, blood culture negative. Continue Levaquin, switch to oral tomorrow check sputum culture. Acute hypoxic respiratory failure secondary to COPD exacerbation- wheezing on admission, ABG showed compensated respiratory acidosis with hypoxic respiratory failure, start steroids, continue duo nebs [id number] and as needed, oxygen supplementation. Not on oxygen at home, possibly will need oxygen on discharge. Consult case management. Doubt secondary to CHF, BNP is borderline , chest x-ray did not show any vascular congestion, no note of lower extremity edema. Continue Lasix per home dose. coronary artery disease, status post history of WI- continue Coreg, Plavix, aspirin, lovastatin History of CHF-BNP borderline, continue Lasix oral dose, continue losartan, Coreg. As above, not in heart failure exacerbation. Diabetes mellitus-continue metformin, size scale insulin, hold glipizide. Sooopx-votifzojnplo-[id number] calcium is 8.7. DVT prophylaxis: Heparin will need respiratory walk fit test if oxygenation is still not good, patient is aware about discharge plan. Francesco Wheeler MD Oct 13, 2017 10:27
[2017-10-13] MEDS ORDERED: DEXTROSE 50% IN WATER 50 ML VIAL(D50) IV PUSH PRN (10:30)
[2017-10-13] MEDS ORDERED: GLUCAGON 1 MG/ML VIAL OTHER PRN (10:30)
[2017-10-13] MEDS: FUROSEMIDE 40 MG TAB PO SCH ×2 (11:05→17:36)
[2017-10-13] MEDS: CARVEDILOL 3.125 MG TAB PO SCH ×2 (11:05→20:50)
[2017-10-13] MEDS: PRAVASTATIN SOD 20 MG TAB PO SCH (11:05)
[2017-10-13] MEDS: ASPIRIN EC 81 MG TABEC PO SCH (11:05)
[2017-10-13] MEDS: CLOPIDOGREL 75 MG TAB PO SCH (11:05)
[2017-10-13] MEDS ORDERED: NEBULIZER/ADULT1 KIT (11:57)
[2017-10-13] MEDS ORDERED: LEVO750T3 PO (11:57)
[2017-10-13] MEDS ORDERED: OXYGEN NAS.CANULA (11:57)
[2017-10-13] MEDS ORDERED: ALBU0.08 NEB (11:57)
[2017-10-13] MEDS ORDERED: PRED20 PO (11:57)
--- NOTE | 2017-10-13 12:03 | HHI.FF ---
Face to Face Verification Diagnosis: (1) Chronic obstructive pulmonary disease (2) Right lower lobe pneumonia Home Health Nursing Order: Medical education Oxygen administration education Nursing assessment with vital signs I have seen patient Virginia Hussein on 10/13/17. My clinical findings support the need for the requested home health care services because: Ltd mobility - disease progression Patient has SOB I certify that my clinical findings support that this patient is homebound because: Hx COPD- exertion dyspnea/weakness Francesco Wheeler MD Oct 13, 2017 12:03
[2017-10-13] MEDS: INSULIN ASPART SUPPLEMENTAL SCALE SQ SCH ×3 (12:18→20:52)
[2017-10-13] MEDS ORDERED: GABAPENTIN 300 MG CAP PO SCH (13:00)
[2017-10-13] MEDS: methylPREDNISolone SOD SUCC 40 MG/1 ML VIAL IV PUSH SCH ×2 (13:10→21:54)
[2017-10-13] MEDS: metFORMIN HCL 500 MG TAB PO SCH (17:35)
--- NOTE | 2017-10-13 19:39 | EKG ---
Date Performed: 10/13/2017 Time Performed: 01:09:37 PTAGE: 52 years EKG: SINUS TACHYCARDIA POSSIBLE LEFT ATRIAL ENLARGEMENT LEFT AXIS INTRAVENTRICULAR CONDUCTION DE LAY ABNORMAL ECG PREVIOUS TRACING : 04/23/2017 06.57 Since the previous tracing, no significant change noted DOCTOR: Kristin Oquendo Interpretating Date/Time 10/13/2017 19:39:47
[2017-10-13] MEDS: GABAPENTIN 300 MG CAP PO SCH (20:51)
[2017-10-13] MEDS: HEPARIN SODIUM - SQ 10,000 UNITS/ML VIAL SQ SCH (20:51)
[2017-10-13] MEDS ORDERED: ALPRAZolam 0.25 MG TAB PO ONE (21:30)
[2017-10-13] MEDS ORDERED: ACETAMINOPHEN 325 MG TAB PO ONE (21:30)
[2017-10-14] VITALS: BP 104/69; PULSE 80; RESP 16; TEMP 97.6; O2SAT 97
[2017-10-14] MEDS: methylPREDNISolone SOD SUCC 40 MG/1 ML VIAL IV PUSH SCH (06:29)
[2017-10-14 06:45] LABS: AUTOMATED NEUTROPHIL # 10.2 TH/MM3 (1.8-7.7); BASOPHIL % 0.1 % (0.0-2.0); HEMATOCRIT 38.2 % (35.0-46.0); HEMOGLOBIN 12.6 GM/DL (11.6-15.3); LYMPH % 8.2 % (9.0-44.0); MEAN CELL VOLUME 89.5 FL (80.0-100.0); MEAN CORPUSCULAR HEMOGLOBIN 29.5 PG (27.0-34.0); MEAN CORPUSCULAR HGB CONC 32.9 % (32.0-36.0); MEAN PLATELET VOLUME 8.7 FL (7.0-11.0); MONO % 4.7 % (0.0-8.0); MONOCYTE # 0.6 TH/MM3 (0-0.9); PLATELET COUNT 198 TH/MM3 (150-450); RED BLOOD COUNT 4.27 MIL/MM3 (4.00-5.30); RED CELL DISTRIBUTION WIDTH 14.2 % (11.6-17.2); WHITE BLOOD COUNT 11.8 TH/MM3 (4.0-11.0)
[2017-10-14 07:09] LABS: CALCIUM 8.4 MG/DL (8.5-10.1)
[2017-10-14 07:10] LABS: BICARBONATE 33.3 MEQ/L (21.0-32.0)
[2017-10-14 07:14] LABS: CREATININE 0.92 MG/DL (0.50-1.00)
[2017-10-14] MEDS: RESP: ALBUTEROL 2.5 MG/IPRATROPIUM 0.5 MG NEB (SCH) NEB ×2 (07:51→14:40)
[2017-10-14 07:54] VITALS: O2SAT 97
[2017-10-14 08:00] VITALS: BP 151/99; PULSE 99; RESP 16; TEMP 96; O2SAT 94
[2017-10-14] MEDS: INSULIN ASPART SUPPLEMENTAL SCALE SQ SCH ×2 (08:00→12:00)
[2017-10-14] MEDS: SODIUM CHLORIDE 0.9% FLUSH 10 ML FLUSH IV FLUSH SCH (09:00)
[2017-10-14] MEDS ORDERED: predniSONE 20 MG TAB PO SCH (09:00)
[2017-10-14] MEDS ORDERED: LOSARTAN 50 MG TAB PO SCH (09:00)
--- NOTE | 2017-10-14 09:34 | HHI.PR ---
Subjective Remarks Patient seen and examined today for follow-up on acute hypoxic respiratory failure. Patient is doing better at this time. She does have multiple questions concerning her patient care, home oxygen. I did answer all the questions that she had. Patient clinically stable this time. Plans for discharge today. No acute events overnight. Patient did have a walk study performed today which did not indicate need for oxygen. Objective Vitals Vital Signs Date Time Temp Pulse Resp B/P (MAP) Pulse Ox O2 Delivery O2 Flow Rate FiO2 10/14/17 08:17 2.00 10/14/17 07:54 97 Nasal Cannula 3.00 10/14/17 00:00 97.6 80 16 104/69 (81) 97 10/13/17 20:27 95 Nasal Cannula 3.00 10/13/17 20:00 95 Nasal Cannula 3.00 10/13/17 20:00 98.6 85 16 121/86 (98) 95 10/13/17 16:00 97.0 101 18 115/70 (85) 94 10/13/17 12:00 97.7 97 16 120/77 (91) 93 I/O 10/13/17 10/13/17 10/13/17 10/14/17 10/14/17 10/14/17 07:00 15:00 23:00 07:00 15:00 23:00 Intake Total 100 ml 400 ml 600 ml Balance 100 ml 400 ml 600 ml Intake Oral 600 ml IV Total 100 ml 400 ml # Voids 3 Result Diagram: 10/14/1725 10/14/17 0625 Objective Remarks GENERAL: Well-developed, well-nourished, in no acute distress. alert and orientated HEENT: Head is normocephalic without any lesions or masses noted. Facial features are symmetric. Eyes: Extraocular muscles are intact. Conjunctivae were clear. NECK: Supple without any masses. Trachea midline no deviation. No JVD, CARDIAC: Regular rhythm, regular rate. S1/S2 are heard. No murmurs gallops or rubs. LUNGS: Diminished breath sounds noted bilaterally, mild expiratory wheeze. No rhonchi or rales. No use of accessory muscles on inspiration or expiration. ABDOMEN: Soft, nontender. Nondistended. Bowel sounds heard in all 4 quadrants. No organomegaly or masses. Negative rebound, negative guarding EXTREMITIES: No edema, pulses are equal bilaterally. No cyanosis or clubbing NEUROLOGY: Mood and affect appear appropriate. Cranial nerves II through XII grossly intact. Moving all extremities, speech is clear Urinary Catheter: No Vascular Central Line Catheter: No A/P Assessment and Plan Acute hypoxic respiratory failure secondary to COPD exacerbation, pneumonia, improved Continue to segmentation maintain O2 sats greater than 92% Solu-Medrol discontinued, patient started on prednisone p.o. Continue duo nebs Home oxygen walk study was performed and patient will require oxygen at home Case management consulted for home oxygen Community-acquired pneumonia Chest x-ray showing right lower lobe infiltrate Influenza testing was negative Continue Levaquin Awaiting sputum culture History of coronary disease, myocardial infarction, hyperlipidemia, history of CHF BNP was borderline, no exam indicating CHF exacerbation Home medications have been continued Diabetes Metformin continued Accu-Cheks with sliding scale insulin DVT prophylaxis: Subcutaneous heparin Discharge Planning Discharge home in stable condition with home health care and home oxygen Activity: Ad inder. Diet: Diabetic diet Medication per medication association Follow-up of her medical doctor in 1 week Cade Houston Oct 14, 2017 09:34
[2017-10-14] MEDS: GABAPENTIN 300 MG CAP PO SCH (10:41)
[2017-10-14] MEDS: HEPARIN SODIUM - SQ 10,000 UNITS/ML VIAL SQ SCH (10:41)
[2017-10-14] MEDS: metFORMIN HCL 500 MG TAB PO SCH (10:42)
[2017-10-14] MEDS: CLOPIDOGREL 75 MG TAB PO SCH (10:42)
[2017-10-14] MEDS: ASPIRIN EC 81 MG TABEC PO SCH ×2 (10:42→10:52)
[2017-10-14] MEDS: CARVEDILOL 3.125 MG TAB PO SCH (10:42)
[2017-10-14] MEDS: PRAVASTATIN SOD 20 MG TAB PO SCH (10:43)
[2017-10-14] MEDS: FUROSEMIDE 40 MG TAB PO SCH (10:52)
[2017-10-14] MEDS ORDERED: LEVOFLOXACIN 750 MG TAB PO SCH (11:00)
[2017-10-14 12:00] VITALS: BP 145/100; PULSE 100; RESP 14; TEMP 96.5; O2SAT 91
[2017-10-15] MEDS ORDERED: LEVOFLOXACIN 750 MG PREMIX INJ 150 ML IV SCH (09:00)
== END 2017-10-14 15:47 | disposition home or self-care (01) | DRG 193 ==
LOC: PHED 00:31 → PHEDA 01:55 → PH3B 03:14 → OBSVTOIN 11:50
PROVIDERS: ADMIT Hospitalist; ATTEND Hospitalist
DX: J18.9 Pneumonia, unspecified organism (principal); J96.01 Acute respiratory failure with hypoxia; J44.0 Chronic obstructive pulmonary disease with (acute) lower respiratory infection; J44.1 Chronic obstructive pulmonary disease with (acute) exacerbation; I11.0 Hypertensive heart disease with heart failure; I50.9 Heart failure, unspecified; I25.10 Atherosclerotic heart disease of native coronary artery without angina pectoris; I25.2 Old myocardial infarction; Z95.5 Presence of coronary angioplasty implant and graft; E83.51 Hypocalcemia; E11.9 Type 2 diabetes mellitus without complications; Z79.84 Long term (current) use of oral hypoglycemic drugs; F41.9 Anxiety disorder, unspecified; M19.90 Unspecified osteoarthritis, unspecified site; E78.5 Hyperlipidemia, unspecified; K21.9 Gastro-esophageal reflux disease without esophagitis; G47.30 Sleep apnea, unspecified; Z98.84 Bariatric surgery status; Z72.0 Tobacco use
CPT/HCPCS: 36600; 71046; 80048; 80053; 82805; 82948; 83880; 84484; 85025; 87040; 87070; 87205; 87804; 93005; 94618; 94640; 94664; 99285; J0456; J0696; J1644; J1815; J1956; J2920; J7050; J7512

== ENCOUNTER 2018-01-24 09:58 | Observation (INO) | payer MEDICAID ==
[2018-01-24] VITALS (7 sets, daily range): BP systolic 135–155; BP diastolic 86–98; PULSE 96–106; RESP 18–22; TEMP 97.5–98.2; O2SAT 92–98
[~2018-01-24] VITALS: Ht 152.4 cm; Wt 90.0 kg
[~2018-01-24 09:58] MED LIST changes: +ALBU0.08 NEB; -BACT800T5 PO; +LEVO750T3 PO; -MUPI2%T TOPICAL; +NEBULIZER/ADULT1 KIT; +OXYGEN NAS.CANULA; +PRED20 PO
--- NOTE | 2018-01-24 10:22 | PD ---
HPI Chief Complaint: Respiratory Symptoms Time Seen by Provider: 10:10 Travel History International Travel<30 days: No Contact w/Intl Traveler<30days: No Traveled to known affect area: No History of Present Illness HPI Patient presents to the emergency department complaining of a 3 day history of shortness of breath. States that she thought she was retaining fluid despite being compliant with Lasix. She also has a history of COPD and received a breathing treatment by EMS in route. Did not take her medications this morning. He is described as being on exertion but not at rest, unable to lie flat. Denies lower extremity edema, fever, chills, recent travel, chest pain, abdominal pain. Does report dry cough and posttussive emesis 3 days ago. States that she is supposed to be on oxygen 23/02, 2 L, but states she only uses it when she needs it. PFSH Past Medical History Hx Anticoagulant Therapy: Yes Arthritis: Yes Asthma: Yes Autoimmune Disease: No Anxiety: Yes Depression: Yes Heart Rhythm Problems: No Cancer: No Cardiovascular Problems: Yes (HTN, CHOL, STEMI'S TIMES 2) High Cholesterol: Yes Chemotherapy: No Congestive Heart Failure: Yes COPD: Yes Coronary Artery Disease: Yes Diabetes: Yes Patient Takes Glucophage: Yes Diminished Hearing: No Endocrine: Yes Gastrointestinal Disorders: Yes GERD: Yes Genitourinary: Yes (KIDNEY STONES) Hypertension: Yes Immune Disorder: No Implanted Vascular Access Dvce: Yes Kidney Stones: Yes Musculoskeletal: Yes Neurologic: No Psychiatric: No Reproductive: No Respiratory: Yes (COPD) Immunizations Current: Yes Myocardial Infarction: Yes (X's 2) Radiation Therapy: No Renal Failure: No Sleep Apnea: Yes Tetanus Vaccination: < 5 Years ?: Not Menopausal: Yes : 3 Para: 2 : 1 Tubal Ligation: Yes Past Surgical History Abdominal Surgery: Yes Body Medical Devices: Lap band, Novasure Cardiac Surgery: Yes (stents) Section: Yes (X's 1) Gynecologic Surgery: Yes (ablasion) Other Surgery: Yes (LAP BAND, ) Social History Alcohol Use: No Tobacco Use: Yes (OCASIONALLY) Substance Use: No Allergies-Medications (Allergen,Severity, Reaction): Coded Allergies: No Known Allergies (Verified Allergy, Unknown, 01/24/18) Reported Meds & Prescriptions Reported Meds & Active Scripts Active Albuterol Neb (Albuterol Sulfate) 2.5 Mg/3 Ml Neb 2.5 Mg NEB QID NEB PRN Nebulizer/Adult Mask (N/A) 1 Kit Kit Kit .XX DIRECTED Oxygen (O2) (Miscellaneous Medication) Inha Liter KIMMIE.CANULA CONTINUOUS Oxygen Concentrator Portable Gaseous 2 L/min via Nasal Canula Continuous For 99 months Levofloxacin 750 Mg Tablet 750 Mg PO DAILY Ventolin Hfa 18 GM Inh (Albuterol Sulfate) 90 Mcg/Act Aer 2 Puff INH Q4-6H PRN Reported Glipizide 5 Mg Tab 2.5 Mg PO BIDAC Take 30 minutes before a meal Amlodipine (Amlodipine Besylate) 10 Mg Tab 10 Mg PO DAILY Furosemide 40 Mg Tab 40 Mg PO BID Losartan (Losartan Potassium) 50 Mg Tab 50 Mg PO DAILY Carvedilol 3.125 Mg Tab 3.125 Mg PO BID Glucophage (Metformin HCl) 1,000 Mg Tab 1,000 Mg PO BIDPC With a meal Gabapentin 600 Mg Tab 600 Mg PO TID Plavix (Clopidogrel Bisulfate) 75 Mg Tab 75 Mg PO DAILY Lovastatin 20 Mg Tab 20 Mg PO DAILY Aspirin 81 (Aspirin) 81 Mg Tabdr 81 Mg PO DAILY Review of Systems Except as stated in HPI: all other systems reviewed are Neg Physical Exam Narrative GENERAL: Acute distress. SKIN: Focused skin assessment warm/dry. HEAD: Atraumatic. Normocephalic. EYES: Pupils equal and round. No scleral icterus. No injection or drainage. ENT: No nasal bleeding or discharge. Mucous membranes pink and moist. NECK: Trachea midline. No JVD. CARDIOVASCULAR: Regular rate and rhythm. No murmur appreciated. RESPIRATORY: No accessory muscle use. Clear to auscultation. Breath sounds equal bilaterally. GASTROINTESTINAL: Abdomen soft, non-tender, obese. Hepatic and splenic margins not palpable. MUSCULOSKELETAL: No obvious deformities. No clubbing. No cyanosis. No edema. NEUROLOGICAL: Awake and alert. No obvious cranial nerve deficits. Motor grossly within normal limits. Normal speech. PSYCHIATRIC: Appropriate mood and affect; insight and judgment normal. Data Data Last Documented VS Vital Signs Date Time Temp Pulse Resp B/P (MAP) Pulse Ox O2 Delivery O2 Flow Rate FiO2 01/24/18 10:27 96 Nasal Cannula 2.00 01/24/18 10:08 22 01/24/18 10:01 97.6 103 155/98 (117) Orders Orders Electrocardiogram (01/24/18 10:09) Complete Blood Count With Diff (01/24/18 10:10) Comprehensive Metabolic Panel (01/24/18 10:10) Creatine Kinase (Cpk) (01/24/18 10:10) Ckmb (Isoenzyme) Profile (01/24/18 10:10) Troponin I (01/24/18 10:10) B-Type Natriuretic Peptide (01/24/18 10:10) Prothrombin Time / Inr (Pt) (01/24/18 10:10) Act Partial Throm Time (Ptt) (01/24/18 10:10) Magnesium (Mg) (01/24/18 10:10) Chest, Single Ap (01/24/18 10:10) Methylprednisolone So Succ Inj (Solumedr (01/24/18 10:30) Furosemide Inj (Lasix Inj) (01/24/18 11:15) Admit Order (Ed Use Only) (01/24/18 11:10) Place In Observation (01/24/18 ) Vital Signs (Adult) Q4H (01/24/18 11:07) Activity Oob Ad Maribel (01/24/18 11:07) Diet Heart Healthy (01/24/18 Lunch) Sodium Chloride 0.9% Flush (Ns Flush) (01/24/18 11:15) Sodium Chloride 0.9% Flush (Ns Flush) (01/24/18 21:00) Acetaminophen (Tylenol) (01/24/18 11:15) Basic Metabolic Panel (Bmp) (01/25/18 06:00) Complete Blood Count With Diff (01/25/18 06:00) Resp Oxygen Kimmie C Titrat 1-4 L (01/24/18 ) Enoxaparin Inj (Lovenox Inj) (01/24/18 11:15) Naloxone Inj (Narcan Inj) (01/24/18 11:15) Magnesium Hydroxide Liq (Milk Of Magnesi (01/24/18 11:15) Sennosides (Senokot) (01/24/18 11:15) Bisacodyl Supp (Dulcolax Supp) (01/24/18 11:15) Lactulose Liq (Lactulose Liq) (01/24/18 11:15) Furosemide Inj (Lasix Inj) (01/24/18 18:00) Albuterol-Ipratropium Neb (Duoneb Neb) (01/24/18 14:00) Albuterol-Ipratropium Neb (Duoneb Neb) (01/24/18 11:15) Furosemide Inj (Lasix Inj) (01/24/18 11:15) Potassium Chloride (Kcl) (01/24/18 21:00) Labs Laboratory Tests Test 01/24/18 10:15 White Blood Count 9.8 TH/MM3 Red Blood Count 4.17 MIL/MM3 Hemoglobin 13.0 GM/DL Hematocrit 38.6 % Mean Corpuscular Volume 92.7 FL Mean Corpuscular Hemoglobin 31.1 PG Mean Corpuscular Hemoglobin Concent 33.6 % Red Cell Distribution Width 15.2 % Platelet Count 257 TH/MM3 Mean Platelet Volume 8.3 FL Neutrophils (%) (Auto) 69.5 % Lymphocytes (%) (Auto) 21.2 % Monocytes (%) (Auto) 7.6 % Eosinophils (%) (Auto) 1.4 % Basophils (%) (Auto) 0.3 % Neutrophils # (Auto) 6.9 TH/MM3 Lymphocytes # (Auto) 2.1 TH/MM3 Monocytes # (Auto) 0.7 TH/MM3 Eosinophils # (Auto) 0.1 TH/MM3 Basophils # (Auto) 0.0 TH/MM3 CBC Comment DIFF FINAL Differential Comment Prothrombin Time 11.0 SEC Prothromb Time International Ratio 1.1 RATIO Activated Partial Thromboplast Time 22.4 SEC Blood Urea Nitrogen 24 MG/DL Creatinine 1.40 MG/DL Random Glucose 177 MG/DL Total Protein 6.4 GM/DL Albumin 2.9 GM/DL Calcium Level 8.4 MG/DL Magnesium Level 1.8 MG/DL Alkaline Phosphatase 102 U/L Aspartate Amino Transf (AST/SGOT) 19 U/L Alanine Aminotransferase (ALT/SGPT) 36 U/L Total Bilirubin 0.3 MG/DL Sodium Level 142 MEQ/L Potassium Level 3.8 MEQ/L Chloride Level 102 MEQ/L Carbon Dioxide Level 33.0 MEQ/L Anion Gap 7 MEQ/L Estimat Glomerular Filtration Rate 39 ML/MIN Total Creatine Kinase 30 U/L Troponin I 0.06 NG/ML B-Type Natriuretic Peptide 2369 PG/ML MDM Medical Decision Making Medical Screen Exam Complete: Yes Emergency Medical Condition: Yes Interpretation(s) ECG sinus rhythm, rate 98, left axis deviation, QTC 457, left atrial enlargement , intraventricular conduction delay (similar to prior) Labs:cbc wnl, elevated CO2/BUN/creatinine/glucose/troponin/BNP Last Impressions Chest X-Ray 01/24/18 1010 Signed Impressions: CONCLUSION: Cardiomegaly with increase in pulmonary vascularity. Scattered parenchymal densities are again seen likely scarring. Differential Diagnosis COPD exacerbation, CHF exacerbation, pulmonary edema, pleural effusion, ACS, pneumonia Narrative Course Patient presents to the emergency department with shortness of breath. He does have a history of CHF and COPD. Ports that she feels better after recent treatment EMS give dose of IV Solu-Medrol 125 mg. Patient placed on a eap consultant, IV access obtained, patient placed on oxygen, and EKG/chest x-ray/labs ordered. 1102: Patient given 40mg IV lasix. Diagnosis Primary Impression: Chronic obstructive pulmonary disease Qualified Codes: J44.9 - Chronic obstructive pulmonary disease, unspecified Additional Impression: CHF (congestive heart failure) Qualified Codes: I50.9 - Heart failure, unspecified Admitting Information Admitting Physician Requests: Observation Condition: Stable Tonya West MD Jan 24, 2018 10:22
[2018-01-24 10:25] LABS: AUTOMATED NEUTROPHIL # 6.9 TH/MM3 (1.8-7.7); BASOPHIL % 0.3 % (0.0-2.0); EOSINOPHIL # 0.1 TH/MM3 (0-0.4); EOSINOPHIL % 1.4 % (0.0-4.0); HEMATOCRIT 38.6 % (35.0-46.0); LYMPH % 21.2 % (9.0-44.0); LYMPHOCYTE # 2.1 TH/MM3 (1.0-4.8); MEAN CELL VOLUME 92.7 FL (80.0-100.0); MEAN CORPUSCULAR HEMOGLOBIN 31.1 PG (27.0-34.0); MEAN CORPUSCULAR HGB CONC 33.6 % (32.0-36.0); MEAN PLATELET VOLUME 8.3 FL (7.0-11.0); MONO % 7.6 % (0.0-8.0); MONOCYTE # 0.7 TH/MM3 (0-0.9); NEUT % 69.5 % (16.0-70.0); PLATELET COUNT 257 TH/MM3 (150-450); RED BLOOD COUNT 4.17 MIL/MM3 (4.00-5.30); RED CELL DISTRIBUTION WIDTH 15.2 % (11.6-17.2); WHITE BLOOD COUNT 9.8 TH/MM3 (4.0-11.0)
[2018-01-24] MEDS ORDERED: methylPREDNISolone SOD SUCC 125 MG/2 ML VIAL IV PUSH ONE (10:30)
[2018-01-24 10:32] LABS: CHLORIDE 102 MEQ/L (98-107); SODIUM (NA) 142 MEQ/L (136-145)
[2018-01-24 10:35] LABS: CALCIUM 8.4 MG/DL (8.5-10.1)
[2018-01-24 10:36] LABS: ALBUMIN 2.9 GM/DL (3.4-5.0); BLOOD UREA NITROGEN 24 MG/DL (7-18); GLUCOSE,RANDOM 177 MG/DL (74-106); MAGNESIUM 1.8 MG/DL (1.5-2.5)
[2018-01-24 10:39] LABS: ALT (GPT) 36 U/L (10-53); AST (GOT) 19 U/L (15-37); GLOMERULAR FILTRATION RATE 39 ML/MIN (>89)
[2018-01-24 10:40] LABS: TOTAL BILIRUBIN ADULT 0.3 MG/DL (0.2-1.0); TOTAL PROTEIN 6.4 GM/DL (6.4-8.2)
[2018-01-24 10:41] LABS: ALKALINE PHOSPHATASE 102 U/L (45-117)
[2018-01-24 10:44] LABS: INTERNATIONAL NORMALIZED RATIO 1.1 RATIO; TROPONIN I 0.06 NG/ML (0.02-0.05)
--- NOTE | 2018-01-24 10:45 | RADRPT ---
EXAM DATE: 01/24/2018 10:34 AM EDT AGE/SEX: 52 years / Female INDICATIONS: Short of breath CLINICAL DATA: This is the patient's initial encounter. Patient reports that signs and symptoms have been present for 3 days and indicates a pain score of 0/10. MEDICAL/SURGICAL HISTORY: . Myocardial infarction. Congestive heart failure. Chronic obstructiv e pulmonary disease. Asthma. Hypertension. Sleep apnea. GERD. Diabetic. . Cardiac cath COMPARISON: C, CHEST SINGLE AP, 07/25/2016. [facility], CHEST PA & LAT, 10/13/2017. . FINDINGS: A single AP view of the chest demonstrates moderate cardiomegaly. Increase in pulmonary vascularity.. Scattered parenchymal densities again noted within the perihilar regions Osseous structures are int act. CONCLUSION: Cardiomegaly with increase in pulmonary vascularity. Scattered parenchymal densities are again seen likely scarring. Electronically signed by: Jorge Stuart MD 01/24/2018 10:43 AM EDT
[2018-01-24] MEDS ORDERED: FUROSEMIDE 40 MG/4 ML VIAL IV PUSH ONE ×2 (11:15)
[2018-01-24] MEDS ORDERED: BISACODYL 10 MG SUPP RECTAL PRN (11:15)
[2018-01-24] MEDS ORDERED: SENNOSIDES 8.6 MG TAB PO PRN (11:15)
[2018-01-24] MEDS ORDERED: ACETAMINOPHEN 325 MG TAB PO PRN (11:15)
[2018-01-24] MEDS ORDERED: SODIUM CHLORIDE 0.9% FLUSH 10 ML FLUSH IV FLUSH PRN (11:15)
[2018-01-24] MEDS ORDERED: MAGNESIUM HYDROXIDE SUSP 30 ML CUP PO PRN (11:15)
[2018-01-24] MEDS ORDERED: NALOXONE HCL 0.4 MG/ML AMP IV PUSH PRN (11:15)
[2018-01-24] MEDS ORDERED: LACTULOSE SYRUP 20 GM/30 ML CUP PO PRN (11:15)
[2018-01-24] MEDS ORDERED: RESP: ALBUTEROL 2.5 MG/IPRATROPIUM 0.5 MG NEB (PRN) NEB (11:15)
[2018-01-24] MEDS ORDERED: ENOXAPARIN SODIUM 30 MG/0.3 ML SYRINGE SQ SCH (12:00)
--- NOTE | 2018-01-24 13:36 | EKG ---
Date Performed: 01/24/2018 Time Performed: 10:32:40 PTAGE: 52 years EKG: Sinus rhythm POSSIBLE LEFT ATRIAL ENLARGEMENT MARKED LEFT AXIS DEVIATION INTRAVENTRICULAR CONDUCTION DELAY ABNORM AL ECG Since PREVIOUS TRACING , no significant change noted PREVIOUS TRACIN10/13/2017 01.09 DOCTOR: Gato Jade Interpretating Date/Time 01/24/2018 13:35:49
--- NOTE | 2018-01-24 13:49 | HHI.HP ---
HPI Service [facility] Primary Care Physician Adrian Contreras DO Admission Diagnosis CHF, COPD exacerbation Diagnoses: (1) Acute on chronic systolic congestive heart failure Diagnosis: Principal (2) Non-compliance Diagnosis: Principal Chief Complaint: Shortness of breath and dyspnea Travel History International Travel<30 Days: No Contact w/Intl Traveler <30 Da: No Traveled to Known Affected Are: No History of Present Illness 52-year-old female with known history of chronic obstructive pulmonary disease, chronic systolic congestive heart failure, cardiomyopathy with ejection fraction 35-40%, hypertension, hyperlipidemia, diabetes, chronic kidney disease stage II who presented the hospital because of shortness of breath, difficulty breathing, orthopnea, dyspnea on exertion. Patient states that she was doing quite well and has been approximately 3 months since her last admission. That on Thursday when her sister was around she ate 244 ounce cups of ice, drink 44 ounces of water, then went to a restaurant and had to ice teas. Ever since then she was getting shortness of breath, dyspnea, orthopnea. Patient states that usually she could walk to the bathroom and back a few times without having to stop. However presently she cannot stand up and walk at all due to shortness of breath. Patient states that she could not lay flat and needed to sit up straight in order to breathe. Because of this reason she came to emergency department for evaluation. Patient had workup done and found to have acute on chronic systolic congestive heart failure, patient was given Lasix 40 mg's IV in the emergency department. Patient states that she felt much better at that time. She was able to get up and walk. She can lay flat. She states that she responded to treatment quite well. It was hoping to go home. ER physician recommended the patient be observed overnight for further evaluation and management. Patient denies any chest pain. She did have shortness of breath, dyspnea on exertion. Denies any lower extremity swelling. Review of Systems Respiratory: COMPLAINS OF: Shortness of breath Cardiovascular: COMPLAINS OF: Dyspnea on Exertion, Orthopnea Except as stated in HPI: all other systems reviewed are Neg Past Family Social History Past Medical History Chronic obstructive pulmonary disease Chronic systolic congestive heart failure Cardiomyopathy with ejection fraction 35-40% Anxiety/depression Hypertension Hyper lipidemia Sleep apnea Diabetes Coronary bypass surgery status post myocardial infarction History of nephrolithiasis Past Surgical History Gastric lap band surgery Cardiac stenting Reported Medications Reported Meds & Active Scripts Active Albuterol Neb (Albuterol Sulfate) 2.5 Mg/3 Ml Neb 2.5 Mg NEB QID NEB PRN Nebulizer/Adult Mask (N/A) 1 Kit Kit Kit .XX DIRECTED Oxygen (O2) (Miscellaneous Medication) Inha Liter KIMMIE.CANULA CONTINUOUS Oxygen Concentrator Portable Gaseous 2 L/min via Nasal Canula Continuous For 99 months Levofloxacin 750 Mg Tablet 750 Mg PO DAILY Ventolin Hfa 18 GM Inh (Albuterol Sulfate) 90 Mcg/Act Aer 2 Puff INH Q4-6H PRN Reported Glipizide 5 Mg Tab 2.5 Mg PO BIDAC Take 30 minutes before a meal Amlodipine (Amlodipine Besylate) 10 Mg Tab 10 Mg PO DAILY Furosemide 40 Mg Tab 40 Mg PO BID Losartan (Losartan Potassium) 50 Mg Tab 50 Mg PO DAILY Carvedilol 3.125 Mg Tab 3.125 Mg PO BID Glucophage (Metformin HCl) 1,000 Mg Tab 1,000 Mg PO BIDPC With a meal Gabapentin 600 Mg Tab 600 Mg PO TID Plavix (Clopidogrel Bisulfate) 75 Mg Tab 75 Mg PO DAILY Lovastatin 20 Mg Tab 20 Mg PO DAILY Aspirin 81 (Aspirin) 81 Mg Tabdr 81 Mg PO DAILY Allergies: Coded Allergies: No Known Allergies (Verified Allergy, Unknown, 01/24/18) Family History Family history is reviewed and significant for mother with heart disease, diabetes, cancer. She does not know much of her father's family history Social History Patient states that she quit smoking 2 weeks ago. She was down to 1 pack a week , records indicate that she was smoking 1-1/2 packs of cigarettes weekly and had been smoking since she was a teenager. Denies any alcohol or illicit drug Physical Exam Vital Signs Vital Signs Date Time Temp Pulse Resp B/P (MAP) Pulse Ox O2 Delivery O2 Flow Rate FiO2 01/24/18 13:08 97.5 101 20 147/97 (114) 92 01/24/18 12:55 Nasal Cannula 2.00 01/24/18 12:28 01/24/18 11:14 103 18 135/92 (106) 97 Nasal Cannula 2.00 01/24/18 10:27 96 Nasal Cannula 2.00 01/24/18 10:08 22 96 Nasal Cannula 2.00 01/24/18 10:01 97.6 103 22 155/98 (117) 95 Physical Exam GENERAL: Well-developed, well-nourished, in no acute distress. alert and orientated HEENT: Head is normocephalic without any lesions or masses noted. Facial features are symmetric. Eyes: Pupils equal round reactive to light. Extraocular muscles are intact. Conjunctivae were clear. Oropharyngeal: Pharynx without any erythema edema. Tongue is midline without deviation. Buccal mucosa is moist without any masses or lesions NECK: Supple without any masses. Trachea midline no deviation. No JVD, no bruits are appreciated CARDIAC: Regular rhythm, regular rate. S1/S2 are heard. No murmurs gallops or rubs. LUNGS: Clear to auscultation bilaterally. No wheeze, rhonchi or rales. No use of accessory muscles on inspiration or expiration. ABDOMEN: Soft, nontender. Nondistended. Bowel sounds heard in all 4 quadrants. No organomegaly or masses. Negative rebound, negative guarding EXTREMITIES: No edema, pulses are equal bilaterally. No cyanosis or clubbing NEUROLOGY: Mood and affect appear appropriate. Cranial nerves II through XII grossly intact. Muscle strength 5/5 in upper and lower extremities bilaterally. Deep tendon reflexes are 2+ in upper and lower extremities bilaterally. Laboratory Laboratory Tests Test 01/24/18 10:15 White Blood Count 9.8 Red Blood Count 4.17 Hemoglobin 13.0 Hematocrit 38.6 Mean Corpuscular Volume 92.7 Mean Corpuscular Hemoglobin 31.1 Mean Corpuscular Hemoglobin Concent 33.6 Red Cell Distribution Width 15.2 Platelet Count 257 Mean Platelet Volume 8.3 Neutrophils (%) (Auto) 69.5 Lymphocytes (%) (Auto) 21.2 Monocytes (%) (Auto) 7.6 Eosinophils (%) (Auto) 1.4 Basophils (%) (Auto) 0.3 Neutrophils # (Auto) 6.9 Lymphocytes # (Auto) 2.1 Monocytes # (Auto) 0.7 Eosinophils # (Auto) 0.1 Basophils # (Auto) 0.0 CBC Comment DIFF FINAL Differential Comment Prothrombin Time 11.0 Prothromb Time International Ratio 1.1 Activated Partial Thromboplast Time 22.4 Blood Urea Nitrogen 24 Creatinine 1.40 Random Glucose 177 Total Protein 6.4 Albumin 2.9 Calcium Level 8.4 Magnesium Level 1.8 Alkaline Phosphatase 102 Aspartate Amino Transf (AST/SGOT) 19 Alanine Aminotransferase (ALT/SGPT) 36 Total Bilirubin 0.3 Sodium Level 142 Potassium Level 3.8 Chloride Level 102 Carbon Dioxide Level 33.0 Anion Gap 7 Estimat Glomerular Filtration Rate 39 Total Creatine Kinase 30 Troponin I 0.06 B-Type Natriuretic Peptide 2369 Result Diagram: 01/24/18 1015 01/24/18 1015 Imaging Last Impressions Chest X-Ray 01/24/18 1010 Signed Impressions: CONCLUSION: Cardiomegaly with increase in pulmonary vascularity. Scattered parenchymal densities are again seen likely scarring. Caprini VTE Risk Assessment Caprini VTE Risk Assessment: Mod/High Risk (score >= 2) Caprini Risk Assessment Model Point Value = 1 Point Value = 2 Point Value = 3 Point Value = 5 Age 41-60 Minor surgery BMI > 25 kg/m2 Swollen legs Varicose veins or History of unexplained or recurrent spontaneous Oral contraceptives or hormone replacement Sepsis (< 1 month) Serious lung disease, including pneumonia (< 1 month) Abnormal pulmonary function Acute myocardial infarction Congestive heart failure (< 1 month) History of inflammatory bowel disease Medical patient at bed rest Age 61-74 Arthroscopic surgery Major open surgery (> 45 min) Laparoscopic surgery (> 45 min) Malignancy Confined to bed (> 72 hours) Immobilizing plaster cast Central venous access Age >= 75 History of VTE Family history of VTE Factor V Leiden Prothrombin [id number] Lupus anticoagulant Anticardiolipin antibodies Elevated serum homocysteine Heparin-induced thrombocytopenia Other congenital or acquired thrombophilia Stroke (< 1 month) Elective arthroplasty Hip, pelvis, or leg fracture Acute spinal cord injury (< 1 month) Prophylaxis Regimen Total Risk Factor Score Risk Level Prophylaxis Regimen 0-1 Low Early ambulation 2 Moderate Order ONE of the following: *Sequential Compression Device (SCD) *Heparin 5000 units SQ BID 3-4 Higher Order ONE of the following medications: *Heparin 5000 units SQ TID *Enoxaparin/Lovenox 40 mg SQ daily (WT < 150 kg, CrCl > 30 mL/min) *Enoxaparin/Lovenox 30 mg SQ daily (WT < 150 kg, CrCl > 10-29 mL/min) *Enoxaparin/Lovenox 30 mg SQ BID (WT < 150 kg, CrCl > 30 mL/min) AND/OR *Sequential Compression Device (SCD) 5 or more Highest Order ONE of the following medications: *Heparin 5000 units SQ TID (Preferred with Epidurals) *Enoxaparin/Lovenox 40 mg SQ daily (WT < 150 kg, CrCl > 30 mL/min) *Enoxaparin/Lovenox 30 mg SQ daily (WT < 150 kg, CrCl > 10-29 mL/min) *Enoxaparin/Lovenox 30 mg SQ BID (WT < 150 kg, CrCl > 30 mL/min) AND *Sequential Compression Device (SCD) Assessment and Plan Assessment and Plan Acute on chronic systolic congestive heart failure -This is due to noncompliance with fluid restriction in outpatient setting -Continue diuresis with Lasix 40 mg g IV every 12 hours, status post Lasix 80 mg IV -Daily weights, monitor strict input and output -Continue beta-allie, ARB -Strict fluid restriction -Patient will need to continue outpatient follow-up with 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 specialist prior medical doctor for strict management of her congestive heart failure Acute renal failure superimposed on chronic kidney disease stage II -Likely secondary to acute CHF -Continue monitor renal function -Avoid nephrotoxins Chronic obstructive pulmonary disease -Continue O2 supplementation maintain O2 sats greater than 92% -Continue nebulizer treatment -Incentive spirometry Hypertension, hyperlipidemia, coronary artery disease, cardiomyopathy -Continue home medications Diabetes -Accu-Cheks with sliding scale insulin -Diabetic diet DVT prevention -Subcutaneous Lovenox Code Status Full code Cade Houston Jan 24, 2018 13:49
[2018-01-24] MEDS ORDERED: DEXTROSE 50% IN WATER 50 ML VIAL(D50) IV PUSH PRN (14:00)
[2018-01-24] MEDS ORDERED: GLUCAGON 1 MG/ML VIAL OTHER PRN (14:00)
[2018-01-24] MEDS ORDERED: TEMAZEPAM 15 MG CAP PO PRN (14:00)
[2018-01-24] MEDS: RESP: ALBUTEROL 2.5 MG/IPRATROPIUM 0.5 MG NEB (SCH) NEB ×2 (14:39→19:08)
--- NOTE | 2018-01-24 14:52 | HHI.DCPOC ---
Discharge Care Plan Diagnosis: (1) Acute on chronic systolic (congestive) heart failure (2) Non-compliance Goals to Promote Your Health * To prevent worsening of your condition and complications * To maintain your health at the optimal level Directions to Meet Your Goals Take your medications as prescribed Follow your dietary instruction Follow activity as directed Keep your appointments as scheduled Take your immunizations and boosters as scheduled If your symptoms worsen call your PCP, if no PCP go to Urgent Care Center or Emergency Room Smoking is Dangerous to Your Health. Avoid second hand smoke Call the 24-hour hour crisis hotline for domestic abuse at Cade Houston Jan 24, 2018 14:51
[2018-01-24] MEDS: INSULIN ASPART SUPPLEMENTAL SCALE SQ SCH ×2 (16:06→20:19)
[2018-01-24] MEDS: FUROSEMIDE 40 MG/4 ML VIAL IV PUSH SCH (16:07)
[2018-01-24] MEDS ORDERED: GABAPENTIN 300 MG CAP PO SCH (18:00)
[2018-01-24] MEDS: POTASSIUM CHLORIDE 10 MEQ CONTROLLED RELEASE TAB PO SCH (20:18)
[2018-01-24] MEDS: CARVEDILOL 3.125 MG TAB PO SCH (20:18)
[2018-01-24] MEDS: SODIUM CHLORIDE 0.9% FLUSH 10 ML FLUSH IV FLUSH SCH (20:18)
[2018-01-25] VITALS: BP 121/72; PULSE 97; RESP 18; TEMP 97.3; O2SAT 96
[2018-01-25 06:25] LABS: AUTOMATED NEUTROPHIL # 9.2 TH/MM3 (1.8-7.7); BASOPHIL % 0.1 % (0.0-2.0); EOSINOPHIL % 0.2 % (0.0-4.0); HEMATOCRIT 38.3 % (35.0-46.0); HEMOGLOBIN 12.7 GM/DL (11.6-15.3); LYMPH % 11.4 % (9.0-44.0); LYMPHOCYTE # 1.3 TH/MM3 (1.0-4.8); MEAN CELL VOLUME 95.5 FL (80.0-100.0); MEAN CORPUSCULAR HEMOGLOBIN 31.7 PG (27.0-34.0); MEAN CORPUSCULAR HGB CONC 33.2 % (32.0-36.0); MEAN PLATELET VOLUME 8.6 FL (7.0-11.0); MONO % 7.5 % (0.0-8.0); MONOCYTE # 0.9 TH/MM3 (0-0.9); NEUT % 80.8 % (16.0-70.0); PLATELET COUNT 276 TH/MM3 (150-450); RED BLOOD COUNT 4.01 MIL/MM3 (4.00-5.30); RED CELL DISTRIBUTION WIDTH 15.4 % (11.6-17.2); WHITE BLOOD COUNT 11.4 TH/MM3 (4.0-11.0)
[2018-01-25 06:32] LABS: CALCIUM 8.7 MG/DL (8.5-10.1)
[2018-01-25 06:33] LABS: BICARBONATE 32.5 MEQ/L (21.0-32.0)
[2018-01-25 06:36] LABS: CREATININE 0.84 MG/DL (0.50-1.00)
[2018-01-25 07:25] VITALS: O2SAT 97
[2018-01-25] MEDS: RESP: ALBUTEROL 2.5 MG/IPRATROPIUM 0.5 MG NEB (SCH) NEB (07:27)
[2018-01-25] MEDS ORDERED: FURO40TA PO (07:36)
[2018-01-25] MEDS ORDERED: GABA600T PO (07:36)
[2018-01-25] MEDS ORDERED: AMLO10TA2 PO (07:36)
--- NOTE | 2018-01-25 07:42 | HHI.PR ---
Subjective Remarks Patient seen and examined today for follow up on CHF exacerbation secondary to fluid non compliance. Patient doing much better, able to lay flat, no SOB, No SANDRA, Vital signs are stable. Remains afebrile Objective Vitals Vital Signs Date Time Temp Pulse Resp B/P (MAP) Pulse Ox O2 Delivery O2 Flow Rate FiO2 01/25/18 00:00 97.3 97 18 121/72 (88) 96 01/24/18 20:00 98.2 106 20 141/89 (106) 94 01/24/18 19:09 96 Nasal Cannula 2.00 01/24/18 19:05 Nasal Cannula 2.00 01/24/18 15:22 97.8 96 20 142/86 (104) 92 01/24/18 14:45 98 Nasal Cannula 3.00 01/24/18 13:08 97.5 101 20 147/97 (114) 92 01/24/18 12:55 Nasal Cannula 2.00 01/24/18 12:28 01/24/18 11:14 103 18 135/92 (106) 97 Nasal Cannula 2.00 01/24/18 10:27 96 Nasal Cannula 2.00 01/24/18 10:08 22 96 Nasal Cannula 2.00 01/24/18 10:01 97.6 103 22 155/98 (117) 95 I/O 01/24/18 01/24/18 01/24/18 01/25/18 01/25/18 01/25/18 07:00 15:00 23:00 07:00 15:00 23:00 Intake Total 720 ml 480 ml Output Total 950 ml Balance -950 ml 720 ml 480 ml Intake Oral 720 ml 480 ml Output Urine Total 950 ml # Voids 3 4 # Bowel Movements 0 Result Diagram: 01/25/18 0520 01/25/18 0520 Imaging Last Impressions Chest X-Ray 01/24/18 1010 Signed Impressions: CONCLUSION: Cardiomegaly with increase in pulmonary vascularity. Scattered parenchymal densities are again seen likely scarring. Objective Remarks GENERAL: Well-developed, well-nourished, in no acute distress. alert and orientated HEENT: Head is normocephalic without any lesions or masses noted. Facial features are symmetric. Eyes: Extraocular muscles are intact. Conjunctivae were clear. NECK: Supple without any masses. Trachea midline no deviation. No JVD, CARDIAC: Regular rhythm, regular rate. S1/S2 are heard. No murmurs gallops or rubs. LUNGS: Clear to auscultation bilaterally. No wheeze, rhonchi or rales. No use of accessory muscles on inspiration or expiration. ABDOMEN: Soft, nontender. Nondistended. Bowel sounds heard in all 4 quadrants. No organomegaly or masses. Negative rebound, negative guarding EXTREMITIES: No edema, pulses are equal bilaterally. No cyanosis or clubbing NEUROLOGY: Mood and affect appear appropriate. Cranial nerves II through XII grossly intact. 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 doctor for strict management of her congestive heart failure Acute renal failure superimposed on chronic kidney disease stage II, improved -Likely secondary to acute CHF -Continue monitor renal function -Avoid nephrotoxins Chronic obstructive pulmonary disease -Continue O2 supplementation maintain O2 sats greater than 92% -Continue nebulizer treatment -Incentive spirometry Hypertension, hyperlipidemia, coronary artery disease, cardiomyopathy -Continue home medications Diabetes -Accu-Cheks with sliding scale insulin -Diabetic diet DVT prevention -Subcutaneous Lovenox Discharge Planning Discharge home in stable condition Diet: Healthy heart diet with fluid restriction Activity: Ad Maribel Medication per medication reconciliation sheet Follow up with Primary medical doctor in 1 week Cade [place] Jan 25, 2018 07:41
[2018-01-25 08:00] VITALS: BP 133/92; PULSE 97; RESP 18; TEMP 97.3; O2SAT 97
[2018-01-25] MEDS ORDERED: LOSARTAN 50 MG TAB PO SCH (09:00)
[2018-01-25] MEDS ORDERED: CLOPIDOGREL 75 MG TAB PO SCH (09:00)
[2018-01-25] MEDS ORDERED: PRAVASTATIN SOD 20 MG TAB PO SCH (09:00)
[2018-01-25] MEDS ORDERED: GABAPENTIN 300 MG CAP PO SCH (09:00)
[2018-01-25] MEDS ORDERED: ASPIRIN EC 81 MG TABEC PO SCH (09:00)
[2018-01-25] MEDS: INSULIN ASPART SUPPLEMENTAL SCALE SQ SCH (09:09)
[2018-01-25] MEDS: POTASSIUM CHLORIDE 10 MEQ CONTROLLED RELEASE TAB PO SCH (09:10)
[2018-01-25] MEDS: CARVEDILOL 3.125 MG TAB PO SCH (09:10)
[2018-01-25] MEDS: SODIUM CHLORIDE 0.9% FLUSH 10 ML FLUSH IV FLUSH SCH (09:11)
[2018-01-25] MEDS: FUROSEMIDE 40 MG/4 ML VIAL IV PUSH SCH (09:11)
== END 2018-01-25 10:43 | disposition home or self-care (01) ==
LOC: PHED 09:58 → PHEDA 11:11 → PH3A 12:58
PROVIDERS: ADMIT Hospitalist; ATTEND Hospitalist
DX: J44.1 Chronic obstructive pulmonary disease with (acute) exacerbation (principal); I50.23 Acute on chronic systolic (congestive) heart failure; R06.02 Shortness of breath; Z99.81 Dependence on supplemental oxygen; Z79.01 Long term (current) use of anticoagulants; M19.90 Unspecified osteoarthritis, unspecified site; F41.9 Anxiety disorder, unspecified; F32.9 Major depressive disorder, single episode, unspecified; I25.2 Old myocardial infarction; N18.2 Chronic kidney disease, stage 2 (mild); I13.0 Hypertensive heart and chronic kidney disease with heart failure and stage 1 through stage 4 chronic kidney disease, or unspecified chronic kidney disease; I25.10 Atherosclerotic heart disease of native coronary artery without angina pectoris; K21.9 Gastro-esophageal reflux disease without esophagitis; Z87.442 Personal history of urinary calculi; E78.00 Pure hypercholesterolemia, unspecified; G47.30 Sleep apnea, unspecified; F17.210 Nicotine dependence, cigarettes, uncomplicated; Z79.899 Other long term (current) drug therapy; Z79.84 Long term (current) use of oral hypoglycemic drugs; Z91.19 Patient's noncompliance with other medical treatment and regimen; E11.22 Type 2 diabetes mellitus with diabetic chronic kidney disease; Z95.5 Presence of coronary angioplasty implant and graft; E78.5 Hyperlipidemia, unspecified; R94.31 Abnormal electrocardiogram [ECG] [EKG]
CPT/HCPCS: 71045; 80048; 80053; 82550; 82948; 83735; 83880; 84484; 85025; 85610; 85730; 93005; 94150; 94640; 94664; 96372; 96374; 96375; 96376; 99285; G0378; J1650; J1815; J1940; J2930

== ENCOUNTER 2018-05-01 11:19 | Inpatient (IN) ==
[2018-05-01] MEDS ORDERED: Azithromycin Inj 500 MG in Sodium Chlor 0.9% Inj 250 ML IV.SIG ONE (11:59)
--- NOTE | 2018-05-01 12:08 | ED ---
HPI General Chief Complaint: Respiratory Symptoms Stated Complaint: Breathing complaint Time Seen by Provider: 05/01/18 11:32 Source: patient Mode of arrival: EMS Limitations: no limitations History of Present Illness HPI Narrative: Patient reports increased shortness of breath over the last 2-3 days. History of COPD. Intermittently productive cough. Using nebulizers at home. Denies any nausea vomiting diarrhea or fever. Using oxygen at home as needed. Admits to continued tobacco use. Complaint: cough Onset (ago): day(s) (2-3) Duration: constant Severity: mild Severity scale (1-10): 3 Relieving factors: nothing Exacerbating factors: nothing Description of mucous: yellow Able to tolerate fluids by mouth: Yes Context: other (Denies sick contacts) Associated symptoms: denies other symptoms Treatments prior to arrival: none Related Data Home Medications Medication Instructions Recorded Confirmed amlodipine 10 mg PO DAILY 05/01/18 05/01/18 aspirin [Aspir-81] 81 mg PO DAILY 05/01/18 05/01/18 carvedilol 3.125 mg PO DAILY 05/01/18 05/01/18 clopidogrel 75 mg PO DAILY 05/01/18 05/01/18 furosemide 40 mg PO BID 05/01/18 05/01/18 gabapentin 600 mg PO TID 05/01/18 05/01/18 glipizide 5 mg PO BID 05/01/18 05/01/18 losartan 50 mg PO DAILY 05/01/18 05/01/18 lovastatin 20 mg PO DAILY 05/01/18 05/01/18 metformin 1,000 mg PO BID 05/01/18 05/01/18 Allergies Allergy/AdvReac Type Severity Reaction Status Date / Time No Known Allergies Allergy Verified 05/01/18 12:25 Review of Systems ROS: all other systems reviewed are negative [facility] Medical History Medical History Asthma (Acute) CAD (coronary artery disease) (Acute) CHF (congestive heart failure) (Acute) COPD (chronic obstructive pulmonary disease) (Acute) Diabetes (Acute) HTN (hypertension) (Acute) History of pneumonia (Acute) Hyperlipidemia (Acute) STEMI (ST elevation myocardial infarction) (Acute) Sciatica (Acute) Surgical History Surgical History H/O heart artery stent (Acute) History of endometrial ablation (Acute) Previous section (Acute) Social History Social History Substance History: Active Abuse Second Hand Smoke Exposure: No Smoking Status: Former smoker Tobacco Type: Cigarettes How Often Do You Have a Drink Containing Alcohol: Never Recent Travel in [facility] within the Last 8 Weeks: No Recent Out of Country Travel within the Last 8 Weeks: No Substance Abuse Detail Marijuana: Substance Use Status: Active Route Used Substance Abuse: Inhalation Substance Frequency: occ. Reason for Use: Feels Good and Get High Immunization History Tetanus Immunization: Unsure Hx Influenza Vaccine This Season: Yes Exam Narrative Exam Narrative: CARDIOVASCULAR: Regular rate and rhythm without murmurs, gallops , or rubs. RESPIRATORY: Breath sounds decreased but equal bilaterally. No accessory muscle use. GASTROINTESTINAL: Abdomen soft, normal bowel sounds, non-tender, nondistended. MUSCULOSKELETAL: No cyanosis, or edema. BACK: Nontender without obvious deformity. No CVA tenderness. Course Reevaluation(s) Reevaluation #1: Labs and imaging reviewed. When dentist to see if the patient was doing and she was tachycardic with increased desaturation. CTA to rule out pulmonary embolism ordered. Time: 14:33 Reevaluation #2: Patient undergoing DuoNeb treatments with rebreather. ABG pending. Patient states new onset of chest discomfort. States she feels as if someone is sitting on her chest. Stat EKG pending Time: 15:14 Reevaluation #3: Patient is resting comfortably on BiPAP. CTA and cardiac enzymes are still pending. Spoke with Dr. Penn who is in agreement will admit to the unit. Time: 16:14 Initial Documented Vital Signs Temperature 97.8 F 05/01/18 11:33 Pulse Rate 109 H 05/01/18 11:33 Respiratory Rate 20 05/01/18 11:33 Blood Pressure 134/89 05/01/18 11:33 Pulse Oximetry 90 L 05/01/18 11:33 Last Documented Vital Signs Temperature 97.8 F 05/01/18 11:33 Pulse Rate 118 H 05/01/18 15:00 Respiratory Rate 28 H 05/01/18 15:00 Blood Pressure 131/81 05/01/18 12:30 Pulse Oximetry 95 05/01/18 15:45 Medical Decision Making [facility] Narrative Medical Screen Exam Complete: Yes Emergency Medical Condition: Yes Differential Diagnosis Differential Diagnosis: COPD exacerbation, asthma exacerbation, viral upper respiratory infection, cough, pneumonia Medical Records Medical records reviewed: Yes I reviewed the patient's medical records. Lab Data Lab results reviewed: Yes I reviewed the patient's lab results. Result diagrams: 05/01/18 11:45 05/01/18 11:45 Lab Results 05/01/18 05/01/18 05/01/18 Range/Units 11:45 11:45 15:12 CBC w Diff Auto diff final WBC 10.6 (4.0-11.0) th/mm3 RBC 4.30 (4.00-5.30) mil/mm3 Hgb 13.3 (11.6-15.3) gm/dL Hct 39.7 (35.0-46.0) % MCV 92.4 (80.0-100.0) fL MCH 31.0 (27.0-34.0) pg MCHC 33.5 (32.0-36.0) % RDW 15.3 (11.6-17.2) % Plt Count 206 (150-450) th/mm3 MPV 8.9 (7.0-11.0) fL Neut % (Auto) 73.0 H (16.0-70.0) % Lymph % (Auto) 17.9 (9.0-44.0) % [place] % (Auto) 7.5 (0.0-8.0) % Eos % (Auto) 1.3 (0.0-4.0) % Baso % (Auto) 0.3 (0.0-2.0) % Neut # (Auto) 7.8 H (1.8-7.7) th/mm3 Lymph # (Auto) 1.9 (1.0-4.8) th/mm3 [place] # (Auto) 0.8 (0.0-0.9) th/mm3 Eos # (Auto) 0.1 (0.0-0.4) th/mm3 Baso # (Auto) 0.0 (0.0-0.2) th/mm3 WBC Differential . Differential Comment . Puncture Site Right radial Patient Temperature 98.6 O2 Saturation 93 (90-100) % ABG pH 7.44 H (7.380-7.420) ABG pCO2 42 (38-42) mmHg ABG pO2 76 (61-120) mmHg ABG HCO3 29 H (22-26) mmol/L ABG O2 Content 17.0 (12.0-20.0) Vol % ABG Base Excess 4.5 H (-2-2) mmol/L ABG Methemoglobin 1.1 (0-2) % Luke Test Present Hemoglobin 13.0 (12.0-16.0) G/DL Carboxyhemoglobin 1.5 (0-4) % O2 Delivery Device Nrb Liter Flow 10.00 L/M Critical Value No Sodium 139 (136-145) meq/L Potassium 3.8 (3.5-5.1) meq/L Chloride 102 (98-107) meq/L Carbon Dioxide 29.5 (21.0-32.0) meq/L Anion Gap 8 (5-15) meq/L BUN 10 (7-18) mg/dL Creatinine 0.85 (0.50-1.00) mg/dL Estimated GFR 70 L (>89) mL/min Random Glucose 132 H (74-106) mg/dL Calcium 7.7 L (8.5-10.1) mg/dL Total Bilirubin 0.4 (0.2-1.0) mg/dL AST 13 L (15-37) U/L ALT 19 (10-53) U/L Alkaline Phosphatase 92 (45-117) U/L Total Protein 7.0 (6.4-8.2) g/dL Albumin 3.2 L (3.4-5.0) g/dL Imaging Data Radiologist's impression: Chest X-Ray 05/01/18 11:59 CONCLUSION: Advanced cardiomegaly with diffuse interstitial prominence and patchy areas of atelectasis similar to previous examination 10/13/2017. ECG Data Attestation: I personally reviewed and interpreted this ECG as follows: (EKG sinus tachycardia rate of [address] segment elevations or depressions) Discharge Plan Discharge Disposition Patient Disposition: 30 Still Patient Discharge Condition Condition: Critical Discharge Details Diagnosis: Acute exacerbation of COPD with asthma Physicians Team ED Provider: Yoel Bains Primary Care Provider: UNKNOWN, Rxs /Orders / Referrals /Forms Prescriptions: No Action losartan 50 mg Tablet 50 mg PO DAILY RF: 0 furosemide 40 mg Tablet 40 mg PO BID RF: 0 gabapentin 600 mg Tablet 600 mg PO TID RF: 0 clopidogrel 75 mg Tablet 75 mg PO DAILY RF: 0 aspirin [Aspir-81] 81 mg Tablet,Delayed Release (Dr/Ec) 81 mg PO DAILY RF: 0 carvedilol 3.125 mg Tablet 3.125 mg PO DAILY RF: 0 amlodipine 10 mg Tablet 10 mg PO DAILY RF: 0 metformin 1,000 mg Tablet 1,000 mg PO BID RF: 0 lovastatin 20 mg Tablet 20 mg PO DAILY RF: 0 glipizide 5 mg Tablet 5 mg PO BID RF: 0 Discharge Interventions Interventions: Vital Signs Last Done: 05/01/18 12:30 Status ED Status: With Doctor
[2018-05-01 12:23] LABS: Baso % (Auto) 0.3 % (0.0-2.0); Eos # (Auto) 0.1 th/mm3 (0.0-0.4); Eos % (Auto) 1.3 % (0.0-4.0); Hematocrit 39.7 % (35.0-46.0); Hemoglobin 13.3 gm/dL (11.6-15.3); Lymph # (Auto) 1.9 th/mm3 (1.0-4.8); Lymph % (Auto) 17.9 % (9.0-44.0); Mean Corpuscular HGB Conc 33.5 % (32.0-36.0); Mean Corpuscular Volume 92.4 fL (80.0-100.0); Mean Platelet Volume 8.9 fL (7.0-11.0); Mono # (Auto) 0.8 th/mm3 (0.0-0.9); Mono % (Auto) 7.5 % (0.0-8.0); Neut # (Auto) 7.8 th/mm3 (1.8-7.7); Platelet Count 206 th/mm3 (150-450); Red Cell Distribution Width 15.3 % (11.6-17.2); White Blood Count 10.6 th/mm3 (4.0-11.0)
--- NOTE | 2018-05-01 12:36 | XR ---
EXAM DATE: 05/01/2018 11:59 AM EDT AGE/SEX: 52 years / Female INDICATIONS: . Short of breath, cough, chest pressure CLINICAL DATA: This is the patient's initial encounter. Patient reports that signs and symptoms have been present for 3 days and indicates a pain score of 0/10. MEDICAL/SURGICAL HISTORY: . Myocardial infarction. Congestive heart failure. Chronic obstructiv e pulmonary disease. Asthma. Hypertension. Sleep apnea. GERD. Diabetic. . . Cardiac cath COMPARISON: [facility], CHEST PA & LAT, 10/13/2017. . FINDINGS: There is advanced cardiomegaly. There is diffuse interstitial prominence within the pulmonary parench yma. There are patchy areas of atelectasis seen in both lungs. Comparison is made to a previous exami [facility] of 10/13/2017. The overall appearance of the parenchyma is similar. There is minimal effusion a t the left lung base. The osseous structures demonstrate degenerative changes in the thoracic spine and shoulders bilateral ly. CONCLUSION: Advanced cardiomegaly with diffuse interstitial prominence and patchy areas of atelectasis similar to previous examination 10/13/2017. Electronically signed by: Juan Savage MD 05/01/2018 12:34 PM EDT
[2018-05-01 12:49] LABS: Chloride 102 meq/L (98-107); Potassium 3.8 meq/L (3.5-5.1); Sodium 139 meq/L (136-145)
[2018-05-01 12:52] LABS: Calcium 7.7 mg/dL (8.5-10.1)
[2018-05-01 12:53] LABS: Albumin 3.2 g/dL (3.4-5.0); Anion Gap 8 meq/L (5-15); Blood Urea Nitrogen 10 mg/dL (7-18); Carbon Dioxide 29.5 meq/L (21.0-32.0); Glucose,Random 132 mg/dL (74-106)
[2018-05-01 12:56] LABS: Alanine Aminotransferase 19 U/L (10-53); Aspartate Aminotransferase 13 U/L (15-37); Glomerular Filtration Rate 70 mL/min (>89)
[2018-05-01 12:59] LABS: Alkaline Phosphatase 92 U/L (45-117)
[2018-05-01 15:18] LABS: ABG Base Excess 4.5 mmol/L (-2-2); ABG PCO2 42 mmHg (38-42); ABG PO2 76 mmHg (61-120)
[2018-05-01] MEDS ORDERED: Morphine Inj 4 MG/ML Vial IV.PUSH PRN (16:02)
[2018-05-01] MEDS ORDERED: Acetaminophen 325 MG Tablet PO PRN (16:02)
[2018-05-01] MEDS ORDERED: Magnesium Sulfate Inj 4 GM in Sodium Chlor 0.9% Inj 92 ML IV.SIG PRN (16:14)
[2018-05-01] MEDS ORDERED: Potassium Chlor 20 mEq Premix 20 MEQ/100 ML PIGGYBACK IV.SIG PRN ×2 (16:14)
[2018-05-01] MEDS ORDERED: Potassium Phosphate 500 MG Soluble Tablet PO PRN ×2 (16:14)
[2018-05-01] MEDS ORDERED: Sodium Phosphate Inj 30 MMOL in Sodium Chlor 0.9% Inj 250 ML IV.SIG PRN (16:14)
[2018-05-01] MEDS ORDERED: Potassium Phosphate Inj 30 MMOL in Sodium Chlor 0.9% Inj 250 ML IV.SIG PRN (16:14)
[2018-05-01] MEDS ORDERED: Magnesium Oxide 400 MG Tablet PO PRN (16:14)
[2018-05-01] MEDS ORDERED: Potassium Chloride 25 MEQ Effervescent Tablet PO PRN (16:14)
[2018-05-01] MEDS ORDERED: Magnesium Sulfate Inj 2 GM in Sodium Chlor 0.9% Inj 96 ML IV.SIG PRN (16:14)
[2018-05-01] MEDS ORDERED: Potassium Chlor 40 mEq Premix 40 MEQ/100 ML PIGGYBACK IV.SIG PRN ×2 (16:14)
[2018-05-01] MEDS ORDERED: Sod Chloride 0.9% Inj 1,000 ML IV.CONT SCH (16:15)
[2018-05-01] MEDS ORDERED: Dextrose 50% in Water 50 ML Vial IV.PUSH PRN (16:15)
--- NOTE | 2018-05-01 16:55 | P.HPCC ---
History of Present Illness Primary Care Physician: UNKNOWN Chief Complaint: Shortness of breath hypoxia History of Present Illness: Patient is a 52-year-old female with history of congestive heart failure, ejection fraction 35-40% on previous echo 2016, history of STEMI in 2016, coronary artery disease, COPD and continued smoking, diabetes, hypertension, dyslipidemia. She presented to the [facility] emergency department with increasing shortness of breath over the last 2-3 days, associated with productive cough. Used nebulizer at home without sufficient improvement. [facility] was called for worsening symptoms, she received 3 breathing treatments with DuoNeb en route, without sufficient improvement. In the emergency department she was severely short of breath, received additional 3 breathing treatments with DuoNeb. According to respiratory therapy, oxygen saturation was 82% on simple mask so she was placed on 100% nonrebreather. Because of increased work of breathing she was placed on BiPAP 15/5. Chest x- ray showed bilateral interstitial infiltrates. Patient received Rocephin and azithromycin for coverage of community-acquired pneumonia in the ED. A CT angiogram report is pending but my review does not reveal any major pulmonary embolism, there is bilateral interstitial edema and right lower lobe pneumonia. I evaluated the patient in the [facility] ICU. Patient for transportation to ICU had been placed on 100% nonrebreather, she has increased work of breathing and BiPAP will be reinitiated soon. Exam reveals bilateral crackles and expiratory wheezes. There is also significant JVD. I will place patient on IV steroids 60 every 8 hours scheduled, continue scheduled breathing treatments, modify antibiotics to cefepime and azithromycin, change Lasix to IV 40 mg every 8 hours. Her shortness of breath and hypoxemic respiratory failure secondary to CHF exacerbation and COPD with pneumonia - Diagnosis (1) Acute hypoxemic respiratory failure (2) Community acquired pneumonia (3) Acute exacerbation of COPD with asthma (4) Systolic heart failure (5) Ischemic cardiomyopathy (6) Coronary artery disease (7) Type 2 diabetes mellitus (8) Hypertension (9) Obesity (10) Tobacco abuse Inpatient Certification: I certify that the inpatient services were ordered in accordance with Medicare regulations governing the order. This includes certification that hospital inpatient services are reasonable and necessary and in the case of services not specified as inpatient-only under 42 CFR 419.22(n), that they are appropriately provided as inpatient services in accordance to with the 2-midnight benchmark under 43 CFR 412.3(e) Estimated Total Length of Stay (Days): 5 Plans for Post Hospital Care: Not yet determined Review of Systems All other systems reviewed negative except as stated in HPI [facility] - History History Provided By: Patient - Medical History Medical History: Medical History (Last Reviewed 05/01/18 @ 12:07 by Yoel Bains MD) Asthma CAD (coronary artery disease) CHF (congestive heart failure) COPD (chronic obstructive pulmonary disease) Diabetes HTN (hypertension) History of pneumonia Hyperlipidemia STEMI (ST elevation myocardial infarction) Sciatica - Surgical History Surgical History: Surgical History (Last Reviewed 05/01/18 @ 12:07 by Yoel Bains MD) H/O heart artery stent History of endometrial ablation Previous section - Tobacco History Second Hand Smoke Exposure: No Tobacco Use In Past 30 Days: No Smoking Status: Former smoker Tobacco Type: Cigarettes - Alcohol History How Often Do You Have a Drink Containing Alcohol: Never - Substance Use History Substance History: Active Abuse - Substance Use Type Marijuana Status: Active Route Used: Inhalation Frequency: occ. Reason for Use: Feels Good, Get High - Travel History Recent Travel in the [place] Within the Last 8 Weeks: No Recent Travel Out of the Country Within the Last 8 Weeks: No - Immunization History Tetanus Immunization: Unsure Hx Influenza Vaccine This Season: Yes Medications and Allergies Active Medications: Active Medications Acetaminophen (Tylenol) 650 mg PO Q6H PRN PRN Reason: PAIN 1-5 AND/OR FEVER >101F Albuterol (Duoneb Neb (Linh)) 1 ampul NEB Q6HR NEB [facility] Albuterol (Duoneb Neb (Prn)) 1 ampul NEB Q4HR NEB PRN PRN Reason: SHORTNESS OF BREATH Amlodipine Besylate (Norvasc) 10 mg PO DAILY [facility] Aspirin (Ecotrin) 81 mg PO DAILY [facility] Budesonide/Formoterol Fumarate (Symbicort 160/4.5 Mcg Inh) 2 puff INH BID [facility] Chlorhexidine Gluconate (Chlorhexidine 2% Cloth) 3 pack TOPICAL DAILY@0400 [facility] Stop: 05/07/18 03:59 Chlorhexidine Gluconate (Chlorhexidine 2% Cloth) 3 pack TOPICAL DAILY@0400 PRN PRN Reason: Extra cloth needed Stop: 05/07/18 03:59 Clopidogrel Bisulfate (Plavix) 75 mg PO DAILY [facility] Dextrose (D50w Vial) 50 ml IV.PUSH UNSCH PRN PRN Reason: PER HYPOGLYCEMIA PROTOCOL Enoxaparin Sodium (Lovenox Inj) 40 mg SQ Q24H [facility] Famotidine (Pepcid Pf Inj) 20 mg IV.PUSH Q12HR [facility] Furosemide (Lasix) 40 mg PO BID [facility] Furosemide (Lasix Inj) 40 mg IV.PUSH Q8H [facility] Gabapentin (Neurontin) 600 mg PO TID [facility] Glucagon (Glucagon Inj) 1 mg OTHER PRN PRN PRN Reason: for Hypoglycemia Protocol Cefepime HCl 2,000 mg/ Sodium (Chloride) 100 mls @ 200 mls/hr IV.SIG Q8H [facility] Azithromycin 500 mg/ Sodium (Chloride) 250 mls @ 250 mls/hr IV.SIG Q24H [facility] Potassium Chloride (Kcl 20 Meq Premix Inj) 20 meq in 100 mls @ 50 mls/hr IV.SIG Q2H PRN PRN Reason: For Potassium 2.8 - 3.2 mEq/L Sodium Phosphate 30 mmol/ (Sodium Chloride) 260 mls @ 42 mls/hr IV.SIG UNSCH PRN PRN Reason: For Phosphorus < 2.5 mg/dL Potassium Phosphate 30 mmol/ (Sodium Chloride) 260 mls @ 42 mls/hr IV.SIG UNSCH PRN PRN Reason: SEE LABEL COMMENTS Magnesium Sulfate 4 gm/ Sodium (Chloride) 100 mls @ 50 mls/hr IV.SIG UNSCH PRN PRN Reason: For Magnesium 0.9 - 1.1 mg/dL Magnesium Sulfate 2 gm/ Sodium (Chloride) 100 mls @ 50 mls/hr IV.SIG UNSCH PRN PRN Reason: For Magnesium 1.2 - 1.6 mg/dL Potassium Chloride (Kcl 40 Meq Premix Inj) 40 meq in 100 mls @ 25 mls/hr IV.SIG Q2H PRN PRN Reason: For Potassium 2.8 - 3.2 mEq/L Potassium Chloride (Kcl 20 Meq Premix Inj) 20 meq in 100 mls @ 50 mls/hr IV.SIG Q2H PRN PRN Reason: For Potassium 3.3 - 3.5 mEq/L Potassium Chloride (Kcl 40 Meq Premix Inj) 40 meq in 100 mls @ 25 mls/hr IV.SIG UNSCH PRN PRN Reason: For Potassium 3.3 - 3.5 mEq/L Insulin Aspart (Novolog Insulin [place] Sugar Inj) 0 unit SQ Q6HR LIN[facility]; Protocol Losartan Potassium (Cozaar) 50 mg PO DAILY [facility] Magnesium Oxide (Mag-Ox) 800 mg PO UNSCH PRN PRN Reason: For Magnesium 1.2 - 1.6 mg/dL Methylprednisolone Sodium Succinate (Solumedrol Inj) 60 mg IV.PUSH Q8HR [facility] Morphine Sulfate (Morphine Inj) 2 mg IV.PUSH Q2H PRN PRN Reason: PAIN SCALE 6 TO 10 Potassium Bicarb/Potassium Chloride (K-Lyte Cl Eff) 50 meq PO UNSCH PRN PRN Reason: For Potassium 3.3 - 3.5 mEq/L Potassium Phosphate (K-Phos Original) 2,000 mg PO Q4H PRN PRN Reason: Phosphorus Less Than 2.5 mg/dL Potassium Phosphate (K-Phos Original) 2,000 mg PO UNSCH PRN PRN Reason: SEE LABEL COMMENTS Pravastatin Sodium (Pravachol) 20 mg PO DAILY [facility] Tiotropium [place] (Spiriva 18 Mcg Inh) 18 mcg INH ONCE ONE Stop: 05/01/18 17:01 Allergies Allergy/AdvReac Type Severity Reaction Status Date / Time No Known Allergies Allergy Verified 05/01/18 12:25 Home Medications Medication Instructions Recorded Confirmed Type amlodipine 10 mg PO DAILY 05/01/18 05/01/18 History aspirin [Aspir-81] 81 mg PO DAILY 05/01/18 05/01/18 History carvedilol 3.125 mg PO DAILY 05/01/18 05/01/18 History clopidogrel 75 mg PO DAILY 05/01/18 05/01/18 History furosemide 40 mg PO BID 05/01/18 05/01/18 History gabapentin 600 mg PO TID 05/01/18 05/01/18 History glipizide 5 mg PO BID 05/01/18 05/01/18 History losartan 50 mg PO DAILY 05/01/18 05/01/18 History lovastatin 20 mg PO DAILY 05/01/18 05/01/18 History metformin 1,000 mg PO BID 05/01/18 05/01/18 History Results - Labs CBC & Chem 7: 05/01/18 11:45 05/01/18 11:45 Labs: Short CBC 05/01/18 Range/Units 11:45 WBC 10.6 (4.0-11.0) th/mm3 Hgb 13.3 (11.6-15.3) gm/dL Hct 39.7 (35.0-46.0) % Plt Count 206 (150-450) th/mm3 BMP 05/01/18 11:45 Sodium 139 Potassium 3.8 Chloride 102 Carbon Dioxide 29.5 BUN 10 Creatinine 0.85 Calcium 7.7 L Cardiac Enzymes 05/01/18 Range/Units 11:45 Troponin I 0.10 H (0.02-0.05) ng/mL Liver Function 05/01/18 Range/Units 11:45 Total Bilirubin 0.4 (0.2-1.0) mg/dL AST 13 L (15-37) U/L ALT 19 (10-53) U/L Alkaline Phosphatase 92 (45-117) U/L Albumin 3.2 L (3.4-5.0) g/dL - Imaging Impressions Chest X-Ray 05/01/18 11:59 CONCLUSION: Advanced cardiomegaly with diffuse interstitial prominence and patchy areas of atelectasis similar to previous examination 10/13/2017. Exam Vital signs: Vital Signs 05/01/18 11:33 05/01/18 12:30 05/01/18 15:00 Temperature 97.8 F Pulse Rate 109 H 110 H 118 H Respiratory Rate 20 18 28 H Blood Pressure 134/89 131/81 Pulse Oximetry 90 L 91 L 05/01/18 15:30 05/01/18 15:45 Temperature Pulse Rate Respiratory Rate Blood Pressure Pulse Oximetry 95 95 Intake & Output 04/30/18 05/01/18 05/01/18 18:59 06:59 18:59 Intake Total 350 / 350 Balance 350 / 350 Weight 90.5 kg Intake: IV 350 / 350 Azithromycin Inj 500 MG In NS 250 / 250 Inj 250 ML @ 250 mls/hr IV.SIG ONCE ONE Rx#:[id number] Rocephin Inj 1,000 MG In NS Inj 100 / 100 100 ML @ 200 mls/hr IV.SIG ONCE ONE Rx#:[id number] Narrative: GEN: 52-year-old obese male who is in moderate to severe distress due to shortness of breath HEENT: Atraumatic normocephalic pupils are reactive airway patent NECK: JVD up to angle of mandible. Neck supple CARDIOVASCULAR: Regular rate and rhythm without murmurs, gallops, or rubs. RESPIRATORY: Breath sounds decreased but equal bilaterally. Using accessory muscles, bilateral mild expiratory wheezing. Right basilar crackles GASTROINTESTINAL: Abdomen soft, normal bowel sounds, non-tender, nondistended. MUSCULOSKELETAL: No cyanosis, or edema. NEURO: Patient is alert awake oriented. No focal deficits. Muscle strength normal Septic Shock Reassessment Septic shock perfusion: reassessment completed Caprini VTE Risk Assessment Caprini VTE Risk Assessment: Moderate/High Risk (score >= 2) Caprini Risk Assessment Model: Point Value = 1 Point Value = 2 Point Value = 3 Point Value = 5 Age 41-60 Minor surgery BMI > 25 kg/m2 Swollen legs Varicose veins or History of unexplained or recurrent spontaneous Oral contraceptives or hormone replacement Sepsis (< 1 month) Serious lung disease, including pneumonia (< 1 month) Abnormal pulmonary function Acute myocardial infarction Congestive heart failure (< 1 month) History of inflammatory bowel disease Medical patient at bed rest Age 61-74 Arthroscopic surgery Major open surgery (> 45 min) Laparoscopic surgery (> 45 min) Malignancy Confined to bed (> 72 hours) Immobilizing plaster cast Central venous access Age >= 75 History of VTE Family history of VTE Factor V Leiden Prothrombin [id number] Lupus anticoagulant Anticardiolipin antibodies Elevated serum homocysteine Heparin-induced thrombocytopenia Other congenital or acquired thrombophilia Stroke (< 1 month) Elective arthroplasty Hip, pelvis, or leg fracture Acute spinal cord injury (< 1 month) Prophylaxis Regimen: Total Risk Factor Score Risk Level Prophylaxis Regimen 0-1 Low Early ambulation 2 Moderate Order ONE of the following: *Sequential Compression Device (SCD) *Heparin 5000 units SQ BID 3-4 Higher Order ONE of the following medications: *Heparin 5000 units SQ TID *Enoxaparin/Lovenox 40 mg SQ daily (WT < 150 kg, CrCl > 30 mL/min) *Enoxaparin/Lovenox 30 mg SQ daily (WT < 150 kg, CrCl > 10-29 mL/min) *Enoxaparin/Lovenox 30 mg SQ BID (WT < 150 kg, CrCl > 30 mL/min) AND/OR *Sequential Compression Device (SCD) 5 or more Highest Order ONE of the following medications: *Heparin 5000 units SQ TID (Preferred with Epidurals) *Enoxaparin/Lovenox 40 mg SQ daily (WT < 150 kg, CrCl > 30 mL/min) *Enoxaparin/Lovenox 30 mg SQ daily (WT < 150 kg, CrCl > 10-29 mL/min) *Enoxaparin/Lovenox 30 mg SQ BID (WT < 150 kg, CrCl > 30 mL/min) AND *Sequential Compression Device (SCD) Assessment and Plan - Problem List (1) Acute hypoxemic respiratory failure Code(s): J96.01 - Acute respiratory failure with hypoxia Status: Acute (2) Community acquired pneumonia Code(s): J18.9 - Pneumonia, unspecified organism Status: Acute (3) Acute exacerbation of COPD with asthma Code(s): J44.1 - Chronic obstructive pulmonary disease with (acute) exacerbation ; J45.901 - Unspecified asthma with (acute) exacerbation Status: Acute (4) Systolic heart failure Code(s): I50.20 - Unspecified systolic (congestive) heart failure Status: Acute (5) Ischemic cardiomyopathy Code(s): I25.5 - Ischemic cardiomyopathy Status: Chronic (6) Coronary artery disease Code(s): I25.10 - Atherosclerotic heart disease of [place] coronary artery without angina pectoris Status: Chronic (7) Type 2 diabetes mellitus Code(s): E11.9 - Type 2 diabetes mellitus without complications Status: Chronic (8) Hypertension Code(s): I10 - Essential (primary) hypertension Status: Chronic (9) Obesity Code(s): E66.9 - Obesity, unspecified Status: Chronic (10) Tobacco abuse Code(s): Z72.0 - Tobacco use Status: Chronic - Assessment and Plan Plan: NEURO: -Continue home dose of gabapentin -Ambien 10 mg p.o. nightly as needed for insomnia RESP: Acute hypoxemic respiratory failure Acute COPD exacerbation Bilateral pneumonia, community-acquired -BiPAP 15/5, titrate FiO2 to keep saturation more than 88-90% -IV Solu-Medrol 60 mg every 8 hours, start Symbicort 2 puffs twice daily, start Spiriva 1 cap inhaler daily -DuoNeb every 4 hours scheduled and every 2 hours as needed -Pulmonology consult -Smoking cessation advised CV: Acute systolic heart failure exacerbation Ischemic cardiomyopathy Coronary artery disease with history of STEMI in 2016 -Hold p.o. Lasix, start IV Lasix 40 mg every 8 hours -Check serial troponins, repeat 2D echo, cardiology consult if needed -Continue home medications aspirin Plavix amlodipine and losartan -Continue lovastatin -Hold carvedilol hold p.o. Lasix GI: -N.p.o., heart healthy diet if improved, IV famotidine : -Monitor renal function closely. Lai catheter if needed for accurate intake output -IV Lasix as above ID: Bilateral community-acquired pneumonia Sepsis -Antibiotics with cefepime and azithromycin -UA and sputum cultures -Influenza, RSV negative HEME: -Monitor CBC, coags ENDO: Type 2 diabetes -Electrolyte replacement per protocol -Sliding scale insulin -Hold glipizide and metformin PROPH: -Bilateral lower extremity SCDs. Lovenox/famotidine LINES: -Utilize peripheral IVs, central line if needed CC time 35 min Code Status: Full
[2018-05-01] MEDS ORDERED: Tiotropium Bromide 18 MCG/ACT Inhaler INH ONE (17:00)
--- NOTE | 2018-05-01 17:07 | CT ---
EXAM DATE: 05/01/2018 2:38 PM EDT AGE/SEX: 52 years / Female INDICATIONS: Short of breath today CLINICAL DATA: This is the patient's initial encounter. Patient reports that signs and symptoms have been present for 1 day and indicates a pain score of 0/10. MEDICAL/SURGICAL HISTORY: Asthma. Congestive heart failure. Chronic obstructive pulmonary disease . Diabetic, Hypertension, STEMI section. Heart artery stent, endometrial ablation RADIATION DOSE: 21.62 CTDI (mGy) COMPARISON: . TECHNIQUE: Volumetric scanning was performed using a multi-row detector CT scanner during bolus infu angelia of 73ML ml Omnipaque 350 (iohexol) nonionic water-soluble contrast as a single exam dose. The d kwame was post processed with a variety of visualization algorithms including full volume maximum inten sity projection and sliding thin slab reformation. Using automated exposure control and adjustment o f the mA and/or kV according to patient size, radiation dose was kept as low as reasonably achievable to obtain optimal diagnostic quality images. DICOM format image data is available electronically fo r review and comparison. FINDINGS: The examination is of good diagnostic quality. No pulmonary embolus is identified. The heart is enlarged. There is no hilar or mediastinal adenopathy. There is mild atherosclerotic sukhdev quing in the coronary arteries. No pericardial effusion is seen. Examination of the pulmonary parenchyma demonstrates scattered areas of patchy infiltrates seen invol ving predominantly the lower lobes bilaterally. There is minimal effusion seen on the right. The exam would be concerning for a pneumonia. Imaging through the upper abdomen demonstrates a lap band. CONCLUSION: 1. No pulmonary embolus identified. 2. Patchy areas of infiltrates seen within both lungs concerning for a possible pneumonia. Electronically signed by: Juan Savage MD 05/01/2018 3:10 PM EDT
[2018-05-01] MEDS: Enoxaparin Inj 40 MG/0.4 ML Syringe SQ SCH (17:18)
[2018-05-01] MEDS: MethylPREDNISolone Sod Succinate Inj 125 MG/2 ML Vial IV.PUSH SCH (17:42)
[2018-05-01] MEDS: Insulin NovoLOG Aspart Correctional Sugar Inj SQ SCH (17:44)
[2018-05-01] MEDS ORDERED: Gabapentin 300 MG Capsule PO SCH (18:00)
[2018-05-01 18:32] LABS: Bilirubin,Urine Negative (Negative); Clarity,Urine Clear (Clear); Glucose,Urine (UA) Negative (Negative); Leukocyte Esterase,Urine Negative (Negative); Nitrite,Urine Negative (Negative); PH,Urine 7.5 (5.0-8.5); Specific Gravity,Urine Less/Equal 1.005 (1.002-1.035); Urobilinogen,Urine 0.2 mg/dL (Less than 2)
[2018-05-01 18:35] LABS: Color,Urine Straw (Yellw/Straw)
[2018-05-01 18:44] LABS: Squamous Epithelial Cell,Urine 0-5 /hpf (0-5)
[2018-05-01] MEDS ORDERED: Furosemide 40 MG Tablet PO SCH (21:00)
[2018-05-01] MEDS ORDERED: Famotidine PF Inj 20 MG/2 ML Vial IV.PUSH SCH (21:00)
--- NOTE | 2018-05-01 21:37 | ECG ---
Date Performed: 05/01/2018 Time Performed: 15:19:15 PTAGE: 52 years EKG: SINUS TACHYCARDIA LEFT ATRIAL ENLARGEMENT MARKED LEFT AXIS DEVIATION INTRAVENTRICULAR CONDU CTION DELAY POSSIBLE LEFT VENTRICULAR HYPERTROPHY POSSIBLE ANTERIOR MYOCARDIAL INFARCTION ABNORMAL EC G No significant change from prior electrocardiogram. PREVIOUS TRACING : 01/24/2018 10.32 DOCTOR: Jacob Sosa Interpretating Date/Time 05/01/2018 21:35:41
[2018-05-01] MEDS ORDERED: MethylPREDNISolone Sod Succinate Inj 125 MG/2 ML Vial IV.PUSH SCH (22:00)
[2018-05-01] MEDS: Budesonide-Formoterol 160/4.5 MCG 6 GM Inhaler INH SCH (22:15)
[2018-05-02] MEDS: MethylPREDNISolone Sod Succinate Inj 125 MG/2 ML Vial IV.PUSH SCH ×4 (01:27→17:08)
[2018-05-02] MEDS: Insulin NovoLOG Aspart Correctional Sugar Inj SQ SCH ×5 (01:27→20:07)
--- NOTE | 2018-05-02 03:28 | XR ---
EXAM DATE: 05/02/2018 6:00 AM EDT AGE/SEX: 52 years / Female INDICATIONS: Respiratory disease. CLINICAL DATA: This is the patient's subsequent encounter. Patient reports that signs and symptoms h ave been present for 2 days and indicates a pain score of Nonresponsive. MEDICAL/SURGICAL HISTORY: . Myocardial infarction. Congestive heart failure. Chronic obstructiv e pulmonary disease. Asthma. Hypertension. Sleep apnea. GERD. Diabetic. . Cardiac cath. COMPARISON: [facility], CHEST PA & LAT, 10/13/2017. [facility], CHEST PA & LAT, 04/23/2017. . FINDINGS: The heart size is enlarged. There is patchy density at the lower lungs bilaterally. CONCLUSION: Cardiomegaly Focal densities in the mid and lower lungs bilaterally likely related to focal areas of consolidation , atelectasis or mass. Electronically signed by: Fili Salgado MD 05/02/2018 3:27 AM EDT
[2018-05-02] MEDS ORDERED: Chlorhexidine Gluconate 2% 1 Pack (2 Cloths) TOPICAL PRN (04:00)
[2018-05-02] MEDS: Chlorhexidine Gluconate 2% 1 Pack (2 Cloths) TOPICAL SCH (06:01)
[2018-05-02 06:17] LABS: Chloride 100 meq/L (98-107); Potassium 3.6 meq/L (3.5-5.1); Sodium 139 meq/L (136-145)
[2018-05-02 06:17] LABS: Baso # (Auto) 0.1 th/mm3 (0.0-0.2); Baso % (Auto) 1.3 % (0.0-2.0); Eos % (Auto) 0.1 % (0.0-4.0); Hematocrit 39.4 % (35.0-46.0); Lymph # (Auto) 0.6 th/mm3 (1.0-4.8); Lymph % (Auto) 5.5 % (9.0-44.0); Mean Corpuscular Hemoglobin 29.9 pg (27.0-34.0); Mean Corpuscular Volume 90.7 fL (80.0-100.0); Mean Platelet Volume 9.3 fL (7.0-11.0); Mono # (Auto) 0.1 th/mm3 (0.0-0.9); Mono % (Auto) 0.5 % (0.0-8.0); Neut # (Auto) 10.7 th/mm3 (1.8-7.7); Neut % (Auto) 92.6 % (16.0-70.0); Platelet Count 214 th/mm3 (150-450); Red Blood Count 4.34 mil/mm3 (4.00-5.30); Red Cell Distribution Width 15.6 % (11.6-17.2); White Blood Count 11.5 th/mm3 (4.0-11.0)
[2018-05-02 06:20] LABS: Anion Gap 12 meq/L (5-15); Calcium 8.1 mg/dL (8.5-10.1); Carbon Dioxide 27.5 meq/L (21.0-32.0)
[2018-05-02 06:47] LABS: Alanine Aminotransferase 22 U/L (10-53); Alkaline Phosphatase 82 U/L (45-117); Aspartate Aminotransferase 12 U/L (15-37); Blood Urea Nitrogen 20 mg/dL (7-18); Glomerular Filtration Rate 52 mL/min (>89); Glucose,Random 245 mg/dL (74-106); Total Protein 7.2 g/dL (6.4-8.2)
[2018-05-02] MEDS: amLODIPine 10 MG Tablet PO SCH (08:35)
[2018-05-02] MEDS: Gabapentin 300 MG Capsule PO SCH ×2 (08:35→20:00)
[2018-05-02] MEDS: Famotidine PF Inj 20 MG/2 ML Vial IV.PUSH SCH ×2 (08:36→20:00)
[2018-05-02] MEDS: Budesonide-Formoterol 160/4.5 MCG 6 GM Inhaler INH SCH ×2 (08:36→20:06)
[2018-05-02] MEDS ORDERED: Dextrose 50% in Water 50 ML Vial IV.PUSH PRN (09:39)
--- NOTE | 2018-05-02 11:26 | P.PNIM ---
Subjective Interval history: BiPAP provided overnight. This morning patient's able to wean off BiPAP and is currently on 2 L nasal cannula of oxygen. It is unlikely she will need BiPAP again as she has had improvement clinically in her respiratory status. No new complaints from the patient. Physical Exam Vital signs: Vital Signs 05/01/18 11:30 05/01/18 11:33 05/01/18 11:45 Temperature 97.8 F Pulse Rate 109 H Respiratory Rate 20 Blood Pressure 134/89 Pulse Oximetry 89 L 90 L 91 L 05/01/18 12:30 05/01/18 13:35 05/01/18 14:15 Temperature Pulse Rate 110 H 108 H Respiratory Rate 18 22 Blood Pressure 131/81 117/81 Pulse Oximetry 91 L 100 91 L 05/01/18 14:30 05/01/18 14:40 05/01/18 15:00 Temperature Pulse Rate 118 H 118 H Respiratory Rate 20 28 H Blood Pressure 109/86 Pulse Oximetry 83 L 95 05/01/18 15:30 05/01/18 15:45 05/01/18 16:53 Temperature 99.1 F Pulse Rate 110 H Respiratory Rate 41 H Blood Pressure 113/76 Pulse Oximetry 95 95 94 L 05/01/18 17:00 05/01/18 17:08 05/01/18 18:00 Temperature 98.7 F Pulse Rate 108 H Respiratory Rate 33 H Blood Pressure Pulse Oximetry 94 L 94 L 05/01/18 19:00 05/01/18 20:00 05/01/18 21:00 Temperature 98.8 F Pulse Rate 108 H 101 H 102 H Respiratory Rate 22 27 H 20 Blood Pressure 110/66 133/80 119/81 Pulse Oximetry 90 L 9 L 95 05/01/18 21:44 05/01/18 22:00 05/01/18 23:00 Temperature 98.9 F Pulse Rate 100 H 100 H 100 H Respiratory Rate 22 18 18 Blood Pressure 119/74 116/76 Pulse Oximetry 94 L 98 05/02/18 00:00 05/02/18 01:00 05/02/18 01:20 Temperature 98.4 F Pulse Rate 96 H 92 H Respiratory Rate 17 16 Blood Pressure 111/75 111/68 Pulse Oximetry 96 97 99 05/02/18 02:00 05/02/18 03:00 05/02/18 03:22 Temperature Pulse Rate 88 90 97 H Respiratory Rate 16 18 23 Blood Pressure 103/68 109/73 Pulse Oximetry 96 96 05/02/18 04:00 05/02/18 05:00 05/02/18 06:00 Temperature 96.9 F L Pulse Rate 89 86 90 Respiratory Rate 18 16 17 Blood Pressure 106/69 105/78 105/74 Pulse Oximetry 98 98 98 05/02/18 06:20 05/02/18 07:00 05/02/18 07:17 Temperature Pulse Rate 92 H 92 H Respiratory Rate 15 15 Blood Pressure 108/65 110/82 Pulse Oximetry 95 97 97 05/02/18 08:00 05/02/18 09:00 05/02/18 09:24 Temperature 97.7 F Pulse Rate 98 H 94 H 98 H Respiratory Rate 15 18 Blood Pressure 117/79 Pulse Oximetry 95 96 95 05/02/18 10:00 Temperature Pulse Rate 98 H Respiratory Rate 15 Blood Pressure 110/74 Pulse Oximetry Intake & Output 05/01/18 05/02/18 05/02/18 18:59 06:59 18:59 Intake Total 810 / 810 100 / 100 Output Total 402 / 402 Balance 408 / 408 100 / 100 Weight 90.4 kg 91.4 kg Intake: IV 450 / 450 100 / 100 Azithromycin Inj 500 MG In NS 250 / 250 Inj 250 ML @ 250 mls/hr IV.SIG ONCE ONE Rx#:[id number] Maxipime Inj 2,000 MG In NS Inj 100 / 100 100 / 100 100 ML @ 200 mls/hr IV.SIG Q12H VIV Rx#:[id number] Rocephin Inj 1,000 MG In NS Inj 100 / 100 100 ML @ 200 mls/hr IV.SIG ONCE ONE Rx#:[id number] Oral 360 / 360 0 / 0 Output: Urine 400 / 400 Stool 2 / 2 Other: # Voids 1 Date of Last Bowel Movement 05/01/18 05/01/18 05/01/18 Weight On Admission 90.5 kg Narrative: GENERAL: NAD, A&Ox3 HEAD: Normocephalic. NECK: Supple, trachea midline. No lymphadenopathy. EYES: No scleral icterus. No injection or drainage. CARDIOVASCULAR: Regular rate and rhythm without murmurs, gallops, or rubs. RESPIRATORY: Breath sounds equal bilaterally. No accessory muscle use. Trace bilateral wheezing, bilateral crackles at bases. GASTROINTESTINAL: Abdomen soft, non-tender, nondistended. MUSCULOSKELETAL: No cyanosis, or edema. SKIN: Warm and dry. NEURO: No focal neurological deficits. Results - Labs CBC & Chem 7: 05/02/18 05:45 05/02/18 04:25 Laboratory Results - last 24 hr 05/01/18 05/01/18 05/01/18 11:45 11:45 11:45 CBC w Diff Auto diff final WBC 10.6 RBC 4.30 Hgb 13.3 Hct 39.7 MCV 92.4 MCH 31.0 MCHC 33.5 RDW 15.3 Plt Count 206 MPV 8.9 Neut % (Auto) 73.0 H Lymph % (Auto) 17.9 [place] % (Auto) 7.5 Eos % (Auto) 1.3 Baso % (Auto) 0.3 Neut # (Auto) 7.8 H Lymph # (Auto) 1.9 [place] # (Auto) 0.8 Eos # (Auto) 0.1 Baso # (Auto) 0.0 WBC Differential . Differential Comment . Puncture Site Patient Temperature O2 Saturation ABG pH ABG pCO2 ABG pO2 ABG HCO3 ABG O2 Content ABG Base Excess ABG Methemoglobin Luke Test Hemoglobin Carboxyhemoglobin O2 Delivery Device Liter Flow Critical Value Sodium 139 Potassium 3.8 Chloride 102 Carbon Dioxide 29.5 Anion Gap 8 BUN 10 Creatinine 0.85 Estimated GFR 70 L POC Glucose Random Glucose 132 H Lactic Acid Calcium 7.7 L Total Bilirubin 0.4 AST 13 L ALT 19 Alkaline Phosphatase 92 Total Creatine Kinase Troponin I 0.10 H B-Natriuretic Peptide Total Protein 7.0 Albumin 3.2 L Ur Collection Type Urine Color Urine Clarity Urine pH Ur Specific [place] Urine Protein Urine Glucose (UA) Urine Ketones Urine Occult Blood Urine Nitrate Urine Bilirubin Urine Urobilinogen Ur Leukocyte Esterase Ur Squamous Epith Cells Micro UA Comment Ur Microscopic Review Nasal Screen MRSA (PCR) 05/01/18 05/01/18 05/01/18 11:45 11:45 15:12 CBC w Diff WBC RBC Hgb Hct MCV MCH MCHC RDW Plt Count MPV Neut % (Auto) Lymph % (Auto) [place] % (Auto) Eos % (Auto) Baso % (Auto) Neut # (Auto) Lymph # (Auto) [place] # (Auto) Eos # (Auto) Baso # (Auto) WBC Differential Differential Comment Puncture Site Right radial Patient Temperature 98.6 O2 Saturation 93 ABG pH 7.44 H ABG pCO2 42 ABG pO2 76 ABG HCO3 29 H ABG O2 Content 17.0 ABG Base Excess 4.5 H ABG Methemoglobin 1.1 Luke Test Present Hemoglobin 13.0 Carboxyhemoglobin 1.5 O2 Delivery Device Nrb Liter Flow 10.00 Critical Value No Sodium Potassium Chloride Carbon Dioxide Anion Gap BUN Creatinine Estimated GFR POC Glucose Random Glucose Lactic Acid Calcium Total Bilirubin AST ALT Alkaline Phosphatase Total Creatine Kinase 36 Troponin I B-Natriuretic Peptide 928 H Total Protein Albumin Ur Collection Type Urine Color Urine Clarity Urine pH Ur Specific [place] Urine Protein Urine Glucose (UA) Urine Ketones Urine Occult Blood Urine Nitrate Urine Bilirubin Urine Urobilinogen Ur Leukocyte Esterase Ur Squamous Epith Cells Micro UA Comment Ur Microscopic Review Nasal Screen MRSA (PCR) 05/01/18 05/01/18 05/01/18 16:35 17:28 18:00 CBC w Diff WBC RBC Hgb Hct MCV MCH MCHC RDW Plt Count MPV Neut % (Auto) Lymph % (Auto) [place] % (Auto) Eos % (Auto) Baso % (Auto) Neut # (Auto) Lymph # (Auto) [place] # (Auto) Eos # (Auto) Baso # (Auto) WBC Differential Differential Comment Puncture Site Patient Temperature O2 Saturation ABG pH ABG pCO2 ABG pO2 ABG HCO3 ABG O2 Content ABG Base Excess ABG Methemoglobin Luke Test Hemoglobin Carboxyhemoglobin O2 Delivery Device Liter Flow Critical Value Sodium Potassium Chloride Carbon Dioxide Anion Gap BUN Creatinine Estimated GFR POC Glucose 145 H Random Glucose Lactic Acid 3.0 H Calcium Total Bilirubin AST ALT Alkaline Phosphatase Total Creatine Kinase Troponin I B-Natriuretic Peptide Total Protein Albumin Ur Collection Type Urine Color Urine Clarity Urine pH Ur Specific [place] Urine Protein Urine Glucose (UA) Urine Ketones Urine Occult Blood Urine Nitrate Urine Bilirubin Urine Urobilinogen Ur Leukocyte Esterase Ur Squamous Epith Cells Micro UA Comment Ur Microscopic Review Nasal Screen MRSA (PCR) Not detected 05/01/18 05/01/18 05/01/18 18:00 18:15 22:20 CBC w Diff WBC RBC Hgb Hct MCV MCH MCHC RDW Plt Count MPV Neut % (Auto) Lymph % (Auto) [place] % (Auto) Eos % (Auto) Baso % (Auto) Neut # (Auto) Lymph # (Auto) [place] # (Auto) Eos # (Auto) Baso # (Auto) WBC Differential Differential Comment Puncture Site Patient Temperature O2 Saturation ABG pH ABG pCO2 ABG pO2 ABG HCO3 ABG O2 Content ABG Base Excess ABG Methemoglobin Luke Test Hemoglobin Carboxyhemoglobin O2 Delivery Device Liter Flow Critical Value Sodium Potassium Chloride Carbon Dioxide Anion Gap BUN Creatinine Estimated GFR POC Glucose Random Glucose Lactic Acid Calcium Total Bilirubin AST ALT Alkaline Phosphatase Total Creatine Kinase Troponin I 0.08 H 0.08 H B-Natriuretic Peptide Total Protein Albumin Ur Collection Type Clean catch Urine Color Straw Urine Clarity Clear Urine pH 7.5 Ur Specific [place] Less/equal 1.005 Urine Protein Negative Urine Glucose (UA) Negative Urine Ketones Negative Urine Occult Blood Negative Urine Nitrate Negative Urine Bilirubin Negative Urine Urobilinogen 0.2 Ur Leukocyte Esterase Negative Ur Squamous Epith Cells 0-5 Micro UA Comment Culture not ind Ur Microscopic Review Microscopic reviewed Nasal Screen MRSA (PCR) 05/01/18 05/02/18 05/02/18 22:20 01:23 04:25 CBC w Diff WBC RBC Hgb Hct MCV MCH MCHC RDW Plt Count MPV Neut % (Auto) Lymph % (Auto) [place] % (Auto) Eos % (Auto) Baso % (Auto) Neut # (Auto) Lymph # (Auto) [place] # (Auto) Eos # (Auto) Baso # (Auto) WBC Differential Differential Comment Puncture Site Patient Temperature O2 Saturation ABG pH ABG pCO2 ABG pO2 ABG HCO3 ABG O2 Content ABG Base Excess ABG Methemoglobin Luke Test Hemoglobin Carboxyhemoglobin O2 Delivery Device Liter Flow Critical Value Sodium 139 Potassium 3.6 Chloride 100 Carbon Dioxide 27.5 Anion Gap 12 BUN 20 H Creatinine 1.10 H Estimated GFR 52 L POC Glucose 260 H Random Glucose 245 H D Lactic Acid 4.7 H* Calcium 8.1 L Total Bilirubin 0.5 AST 12 L ALT 22 Alkaline Phosphatase 82 Total Creatine Kinase Troponin I B-Natriuretic Peptide Total Protein 7.2 Albumin 3.0 L Ur Collection Type Urine Color Urine Clarity Urine pH Ur Specific [place] Urine Protein Urine Glucose (UA) Urine Ketones Urine Occult Blood Urine Nitrate Urine Bilirubin Urine Urobilinogen Ur Leukocyte Esterase Ur Squamous Epith Cells Micro UA Comment Ur Microscopic Review Nasal Screen MRSA (PCR) 05/02/18 05/02/18 05/02/18 04:50 04:50 05:45 CBC w Diff Auto diff final WBC 11.5 H RBC 4.34 Hgb 13.0 Hct 39.4 MCV 90.7 MCH 29.9 MCHC 33.0 RDW 15.6 Plt Count 214 MPV 9.3 Neut % (Auto) 92.6 H Lymph % (Auto) 5.5 L [place] % (Auto) 0.5 Eos % (Auto) 0.1 Baso % (Auto) 1.3 Neut # (Auto) 10.7 H Lymph # (Auto) 0.6 L [place] # (Auto) 0.1 Eos # (Auto) 0.0 Baso # (Auto) 0.1 WBC Differential . Differential Comment . Puncture Site Patient Temperature O2 Saturation ABG pH ABG pCO2 ABG pO2 ABG HCO3 ABG O2 Content ABG Base Excess ABG Methemoglobin Luke Test Hemoglobin Carboxyhemoglobin O2 Delivery Device Liter Flow Critical Value Sodium Potassium Chloride Carbon Dioxide Anion Gap BUN Creatinine Estimated GFR POC Glucose Random Glucose Lactic Acid 4.1 H* Calcium Total Bilirubin AST ALT Alkaline Phosphatase Total Creatine Kinase Troponin I B-Natriuretic Peptide 1864 H Total Protein Albumin Ur Collection Type Urine Color Urine Clarity Urine pH Ur Specific [place] Urine Protein Urine Glucose (UA) Urine Ketones Urine Occult Blood Urine Nitrate Urine Bilirubin Urine Urobilinogen Ur Leukocyte Esterase Ur Squamous Epith Cells Micro UA Comment Ur Microscopic Review Nasal Screen MRSA (PCR) 05/02/18 06:05 CBC w Diff WBC RBC Hgb Hct MCV MCH MCHC RDW Plt Count MPV Neut % (Auto) Lymph % (Auto) [place] % (Auto) Eos % (Auto) Baso % (Auto) Neut # (Auto) Lymph # (Auto) [place] # (Auto) Eos # (Auto) Baso # (Auto) WBC Differential Differential Comment Puncture Site Patient Temperature O2 Saturation ABG pH ABG pCO2 ABG pO2 ABG HCO3 ABG O2 Content ABG Base Excess ABG Methemoglobin Luke Test Hemoglobin Carboxyhemoglobin O2 Delivery Device Liter Flow Critical Value Sodium Potassium Chloride Carbon Dioxide Anion Gap BUN Creatinine Estimated GFR POC Glucose 248 H Random Glucose Lactic Acid Calcium Total Bilirubin AST ALT Alkaline Phosphatase Total Creatine Kinase Troponin I B-Natriuretic Peptide Total Protein Albumin Ur Collection Type Urine Color Urine Clarity Urine pH Ur Specific [place] Urine Protein Urine Glucose (UA) Urine Ketones Urine Occult Blood Urine Nitrate Urine Bilirubin Urine Urobilinogen Ur Leukocyte Esterase Ur Squamous Epith Cells Micro UA Comment Ur Microscopic Review Nasal Screen MRSA (PCR) Microbiology 05/01/18 18:00 Sputum - Expectorated Sputum Gram Stain - Final 05/01/18 12:12 Nasopharyngeal Respiratory Syncytial Virus Ag - Final Negative for RSV antigen Infection due to RSV cannot be ruled out since the antigen present in the sample may be below the detectoin limit of the test. 05/01/18 12:12 Nasal Wash Influenza Types A,B Antigen - Final Negative for FLU A and B antigen Infection due to influenza A or B cannot be ruled out since the antigen present in the sample may be below the detection limit of the test. - Imaging Impressions Chest X-Ray 05/01/18 11:59 CONCLUSION: Advanced cardiomegaly with diffuse interstitial prominence and patchy areas of atelectasis similar to previous examination 10/13/2017. Chest CTA 05/01/18 14:19 CONCLUSION: 1. No pulmonary embolus identified. 2. Patchy areas of infiltrates seen within both lungs concerning for a possible pneumonia. Chest X-Ray 05/02/18 06:00 CONCLUSION: Cardiomegaly Focal densities in the mid and lower lungs bilaterally likely related to focal areas of consolidation, atelectasis or mass. Assessment and Plan - Assessment (1) Acute exacerbation of COPD with asthma Code(s): J44.1 - Chronic obstructive pulmonary disease with (acute) exacerbation ; J45.901 - Unspecified asthma with (acute) exacerbation Status: Acute (2) Acute hypoxemic respiratory failure Code(s): J96.01 - Acute respiratory failure with hypoxia Status: Acute (3) Community acquired pneumonia Code(s): J18.9 - Pneumonia, unspecified organism Status: Acute - Plan 52-year-old female admitted secondary to acute hypoxemic respiratory failure with an acute COPD exacerbation and bilateral pneumonia acquired. Sepsis Resolved Recurrence Continue treatment of infections as below Acute hypoxemic respiratory failure Acute COPD exacerbation Bilateral pneumonia Community-acquired pneumonia Improving BiPAP wean off Continue oxygen supplementation Continue systemic steroids Continue Symbicort Continue Spiriva Continue scheduled duo nebs Albuterol as needed Neurology following Nicotine dependence Contributory Patient counseled to quit CHF exacerbation acute systolic heart failure exacerbation Chronic ischemic cardiomyopathy Coronary artery disease History of STEMI in 2016 Continue IV Lasix for now Follow renal function Based on clinical status or BUN/creatinine we will transition back to oral therapy in the future Echocardiogram pending Continue aspirin, Plavix, amlodipine, lovastatin and losartan Carvedilol on hold due to COPD exacerbation Diabetes mellitus type 2 Follow blood sugars Insulin sliding scale Diabetic diet DVT prophylaxis Lovenox
--- NOTE | 2018-05-02 16:03 | MB ---
cc: Jovani Witt MD DATE: 05/02/2018 DATE OF CONSULTATION: 05/02/2018 REQUESTING PHYSICIAN: REASON FOR CONSULTATION: COPD exacerbation. HISTORY OF PRESENT ILLNESS: Ms. Hussein is a 52-year-old female who has a history of COPD for a long period of time. She has oxygen, which she uses off and on. She also has history of congestive heart failure, coronary artery disease and cardiomyopathy, ejection fraction 35-40%. She continues to smoke few cigarettes a day. She has been having increasing shortness of breath. On the day of admission, she just could not take a breath. She did not have any chest pain, did not have any fever or chills, no night sweats, no nausea or vomiting. With these symptoms, she came to the hospital. She had a workup done. She had a CT of the chest and did not show any pulmonary embolism. It shows bilateral patchy lung infiltrates. Her blood gas shows pH 7.44, pCO2 of 42, pO2 of 76, saturation 93%. Her CBC showed WBC count of 11.5, hemoglobin 13.0, hematocrit 39.4, MCV 90, platelet count 214. Sodium 139, potassium 3.6, chloride 100, CO2 27, BUN 20, creatinine 1.10. PAST MEDICAL HISTORY: Significant for coronary artery disease, congestive heart failure, hypertension, diabetes mellitus and COPD. MEDICATIONS: 1. She is currently taking the nebulizer treatment with albuterol and Atrovent. 2. Norvasc 10 mg a day. 3. Aspirin 81 mg a day. 4. Zithromax 500 mg a day. 5. Symbicort 160/4.5 two puffs twice a day. 6. Cefepime 2 grams every 12 hours. 7. Plavix 75 mg a day. 8. Lovenox 40 mg a day. 9. Famotidine 10 mg every 12 hours. 10. Lasix 40 mg every 8 hours. 11. Neurontin 600 mg twice a day. 12. Novolin insulin. 13. Losartan 50 mg a day. 14. Morphine for pain. 15. Potassium supplement. 16. Pravachol 20 mg a day. 17. Ambien 10 mg at nighttime as needed. ALLERGIES: NO KNOWN DRUG ALLERGIES. SOCIAL HISTORY: She has a long history of smoking few cigarettes a day. No alcohol abuse. FAMILY HISTORY: She is , lives with her son. REVIEW OF SYSTEMS: The patient normally is able to ambulate good distance. No weight loss. No seizure, stroke or epilepsy. No DVT or pulmonary embolism. No malignancy. PHYSICAL EXAMINATION: GENERAL: Obese female, not in any acute distress. VITAL SIGNS: Blood pressure 110/74, heart rate 98, respirations 16, temperature 97.7, saturation 95% on 2 liter nasal cannula. HEENT: Unremarkable. NECK: Supple. JVD not raised. CHEST: Clear. She has bilateral expiratory rhonchi. HEART: S1, S2 normal. ABDOMEN: Benign. EXTREMITIES: No edema. IMPRESSION: 1. Chronic obstructive pulmonary disease with exacerbation. 2. Bilateral patchy lung infiltrate. 3. Congestive heart failure. 4. Diabetes mellitus. 5. Coronary artery disease. 6. Hypertension. PLAN: I discussed with the patient continue IV Solu-Medrol 60 mg every 8 hours. Monitor her blood sugar. Continue treatment Symbicort twice a day and continue antibiotic. Advised her that she should use her inhaler nebulizer on a regular basis. I will check a pulmonary function study. Further treatment will depend on the course in the hospital. MD SANDRINE Acosta/vlad/naif , 01:33 PM , 01:42 PM
[2018-05-02] MEDS: Azithromycin Inj 500 MG in Sodium Chlor 0.9% Inj 250 ML IV.SIG SCH (17:07)
[2018-05-02] MEDS: Enoxaparin Inj 40 MG/0.4 ML Syringe SQ SCH (17:09)
[2018-05-03] MEDS: MethylPREDNISolone Sod Succinate Inj 125 MG/2 ML Vial IV.PUSH SCH (02:18)
[2018-05-03 04:55] LABS: Baso # (Auto) 0.4 th/mm3 (0.0-0.2); Baso % (Auto) 2.1 % (0.0-2.0); Eos # (Auto) 0.1 th/mm3 (0.0-0.4); Eos % (Auto) 0.5 % (0.0-4.0); Hematocrit 39.3 % (35.0-46.0); Hemoglobin 12.9 gm/dL (11.6-15.3); Lymph # (Auto) 0.7 th/mm3 (1.0-4.8); Lymph % (Auto) 3.7 % (9.0-44.0); Mean Corpuscular HGB Conc 32.8 % (32.0-36.0); Mean Corpuscular Hemoglobin 30.5 pg (27.0-34.0); Mean Platelet Volume 8.8 fL (7.0-11.0); Mono # (Auto) 0.7 th/mm3 (0.0-0.9); Mono % (Auto) 3.5 % (0.0-8.0); Neut # (Auto) 17.7 th/mm3 (1.8-7.7); Neut % (Auto) 90.2 % (16.0-70.0); Platelet Count 207 th/mm3 (150-450); Red Blood Count 4.22 mil/mm3 (4.00-5.30); Red Cell Distribution Width 15.6 % (11.6-17.2); White Blood Count 19.6 th/mm3 (4.0-11.0)
[2018-05-03 05:06] LABS: Chloride 100 meq/L (98-107); Potassium 3.9 meq/L (3.5-5.1); Sodium 139 meq/L (136-145)
[2018-05-03 05:09] LABS: Albumin 2.8 g/dL (3.4-5.0); Anion Gap 9 meq/L (5-15); Calcium 7.7 mg/dL (8.5-10.1)
[2018-05-03 05:10] LABS: Blood Urea Nitrogen 25 mg/dL (7-18); Glucose,Random 203 mg/dL (74-106)
[2018-05-03 05:13] LABS: Alanine Aminotransferase 27 U/L (10-53); Aspartate Aminotransferase 14 U/L (15-37); Glomerular Filtration Rate 63 mL/min (>89)
[2018-05-03 05:14] LABS: Total Protein 6.8 g/dL (6.4-8.2)
[2018-05-03 05:15] LABS: Alkaline Phosphatase 80 U/L (45-117)
[2018-05-03] MEDS: Chlorhexidine Gluconate 2% 1 Pack (2 Cloths) TOPICAL SCH (05:31)
[2018-05-03] MEDS: amLODIPine 10 MG Tablet PO SCH (09:14)
[2018-05-03] MEDS: Gabapentin 300 MG Capsule PO SCH ×2 (09:14→21:03)
[2018-05-03] MEDS: Budesonide-Formoterol 160/4.5 MCG 6 GM Inhaler INH SCH ×2 (09:15→21:02)
[2018-05-03] MEDS: Famotidine PF Inj 20 MG/2 ML Vial IV.PUSH SCH ×2 (09:17→21:02)
[2018-05-03] MEDS: Insulin NovoLOG Aspart Correctional Sugar Inj SQ SCH ×4 (09:32→21:03)
--- NOTE | 2018-05-03 11:21 | P.PNIM ---
Subjective Interval history: Good progression in recovery from CHF exacerbation and COPD exacerbation related to pneumonia, thus far. No new complaints from the patient. She continues to require oxygen but has oxygen at home at baseline and at baseline uses oxygen intermittently. No new complaints today. No fevers overnight. Physical Exam Vital signs: Vital Signs 05/02/18 12:00 05/02/18 13:00 05/02/18 15:30 Temperature 97.7 F Pulse Rate 102 H 102 H 105 H Respiratory Rate 17 16 19 Blood Pressure 117/67 92/59 L Pulse Oximetry 92 L 95 05/02/18 16:00 05/02/18 20:00 05/02/18 21:00 Temperature 97.7 F Pulse Rate 102 H 96 H 106 H Respiratory Rate 30 H 20 Blood Pressure 123/62 Pulse Oximetry 92 L 95 95 05/02/18 23:00 05/03/18 03:00 05/03/18 04:29 Temperature Pulse Rate 102 H 94 H 97 H Respiratory Rate 15 14 16 Blood Pressure 108/70 107/79 Pulse Oximetry 92 L 99 05/03/18 07:00 05/03/18 08:00 05/03/18 09:00 Temperature Pulse Rate 96 H 96 H 104 H Respiratory Rate 14 10 L 44 H Blood Pressure 116/83 Pulse Oximetry 93 L 96 96 05/03/18 10:00 05/03/18 10:52 Temperature Pulse Rate 98 H Respiratory Rate 13 Blood Pressure 117/77 Pulse Oximetry 100 96 Intake & Output 05/02/18 05/03/18 05/03/18 18:59 06:59 18:59 Intake Total 1680 / 1680 Balance 1680 / 1680 Weight 90.2 kg Intake: IV 450 / 450 Azithromycin Inj 500 MG In NS 250 / 250 Inj 250 ML @ 250 mls/hr IV.SIG Q24H VIV Rx#:[id number] Maxipime Inj 2,000 MG In NS Inj 200 / 200 100 ML @ 200 mls/hr IV.SIG Q12H VIV Rx#:[id number] Oral 1230 / 1230 Other: Post Void Residual 500 Date of Last Bowel Movement 05/01/18 05/03/18 05/03/18 # Incontinent Bowel Movements 1 Narrative: GENERAL: NAD, A&Ox3 HEAD: Normocephalic. NECK: Supple, trachea midline. No lymphadenopathy. EYES: No scleral icterus. No injection or drainage. CARDIOVASCULAR: Regular rate and rhythm without murmurs, gallops, or rubs. RESPIRATORY: Breath sounds equal bilaterally. No accessory muscle use. GASTROINTESTINAL: Abdomen soft, non-tender, nondistended. MUSCULOSKELETAL: No cyanosis, or edema. SKIN: Warm and dry. NEURO: No focal neurological deficits. Results - Labs CBC & Chem 7: 05/03/18 04:25 05/03/18 04:25 Laboratory Results - last 24 hr 05/02/18 05/02/18 05/02/18 11:32 15:57 19:54 CBC w Diff WBC RBC Hgb Hct MCV MCH MCHC RDW Plt Count MPV Neut % (Auto) Lymph % (Auto) [place] % (Auto) Eos % (Auto) Baso % (Auto) Neut # (Auto) Lymph # (Auto) [place] # (Auto) Eos # (Auto) Baso # (Auto) WBC Differential Differential Comment Sodium Potassium Chloride Carbon Dioxide Anion Gap BUN Creatinine Estimated GFR POC Glucose 232 H 278 H 327 H Random Glucose Calcium Total Bilirubin AST ALT Alkaline Phosphatase Total Protein Albumin 05/03/18 05/03/18 05/03/18 04:25 04:25 08:02 CBC w Diff Auto diff final WBC 19.6 H D RBC 4.22 Hgb 12.9 Hct 39.3 MCV 93.0 MCH 30.5 MCHC 32.8 RDW 15.6 Plt Count 207 MPV 8.8 Neut % (Auto) 90.2 H Lymph % (Auto) 3.7 L [place] % (Auto) 3.5 Eos % (Auto) 0.5 Baso % (Auto) 2.1 H Neut # (Auto) 17.7 H Lymph # (Auto) 0.7 L [place] # (Auto) 0.7 Eos # (Auto) 0.1 Baso # (Auto) 0.4 H WBC Differential . Differential Comment . Sodium 139 Potassium 3.9 Chloride 100 Carbon Dioxide 30.0 Anion Gap 9 BUN 25 H Creatinine 0.93 Estimated GFR 63 L POC Glucose 225 H Random Glucose 203 H Calcium 7.7 L Total Bilirubin 0.4 AST 14 L ALT 27 Alkaline Phosphatase 80 Total Protein 6.8 Albumin 2.8 L Microbiology 05/01/18 18:00 Sputum - Expectorated Sputum Gram Stain - Final 05/01/18 18:00 Sputum - Expectorated Sputum Sputum Culture - Preliminary Results Pending Assessment and Plan - Assessment (1) Acute exacerbation of COPD with asthma Code(s): J44.1 - ; J45.901 - Status: Acute (2) Acute hypoxemic respiratory failure Code(s): J96.01 - Status: Acute (3) Community acquired pneumonia Code(s): J18.9 - Status: Acute - Plan 52-year-old female admitted secondary to acute hypoxemic respiratory failure with an acute COPD exacerbation and bilateral pneumonia acquired. Continued improvement. Monitor vital signs and oxygen saturation. Monitor for any recurrence of respiratory distress. Continue antibiotics to treat pneumonia. If improvements continue through tomorrow patient will be cleared for discharge home tomorrow morning. Sepsis Resolved Recurrence Continue treatment of infections as below Acute hypoxemic respiratory failure Acute COPD exacerbation Bilateral pneumonia Community-acquired pneumonia Improving BiPAP wean off Continue oxygen supplementation Continue systemic steroids Continue Symbicort Continue Spiriva Continue scheduled duo nebs Albuterol as needed Pulmonology following Continue cefepime and azithromycin Nicotine dependence Contributory Patient counseled to quit CHF exacerbation acute systolic heart failure exacerbation Chronic ischemic cardiomyopathy Coronary artery disease History of STEMI in 2016 Continue IV Lasix for now Follow renal function Based on clinical status or BUN/creatinine we will transition back to oral therapy in the future Echocardiogram pending Continue aspirin, Plavix, amlodipine, lovastatin and losartan Carvedilol on hold due to COPD exacerbation Diabetes mellitus type 2 Follow blood sugars Insulin sliding scale Diabetic diet DVT prophylaxis Lovenox
[2018-05-03] MEDS: ALPRAZolam 0.25 MG Tablet PO PRN ×2 (17:10→22:04)
[2018-05-03] MEDS: Azithromycin Inj 500 MG in Sodium Chlor 0.9% Inj 250 ML IV.SIG SCH (17:10)
[2018-05-03] MEDS: Enoxaparin Inj 40 MG/0.4 ML Syringe SQ SCH (17:11)
--- NOTE | 2018-05-03 18:24 | P.PNPL ---
Subjective Interval history: OWF with COPD exac, SOB breathing better Mild sob Diuretics on hold Physical Exam Vital signs: Vital Signs 05/02/18 20:00 05/02/18 21:00 05/02/18 23:00 Pulse Rate 96 H 106 H 102 H Respiratory Rate 20 15 Blood Pressure 108/70 Pulse Oximetry 95 95 92 L 05/03/18 03:00 05/03/18 04:29 05/03/18 07:00 Pulse Rate 94 H 97 H 96 H Respiratory Rate 14 16 14 Blood Pressure 107/79 Pulse Oximetry 99 93 L 05/03/18 08:00 05/03/18 09:00 05/03/18 10:00 Pulse Rate 96 H 104 H 98 H Respiratory Rate 10 L 44 H 13 Blood Pressure 116/83 117/77 Pulse Oximetry 96 96 100 05/03/18 10:52 05/03/18 15:50 Pulse Rate 95 H Respiratory Rate 16 Blood Pressure Pulse Oximetry 96 Intake & Output 05/02/18 05/03/18 05/03/18 18:59 06:59 18:59 Intake Total 1680 / 1680 100 / 100 Balance 1680 / 1680 100 / 100 Weight 90.2 kg Intake: IV 450 / 450 100 / 100 Azithromycin Inj 500 MG In NS 250 / 250 Inj 250 ML @ 250 mls/hr IV.SIG Q24H VIV Rx#:[id number] Maxipime Inj 2,000 MG In NS Inj 200 / 200 100 / 100 100 ML @ 200 mls/hr IV.SIG Q12H VIV Rx#:[id number] Oral 1230 / 1230 Other: Post Void Residual 500 Date of Last Bowel Movement 05/01/18 05/03/18 05/03/18 # Incontinent Bowel Movements 1 GENERAL: Elderly WF, mild sob SKIN: Warm and dry. HEAD: Normocephalic. EYES: No scleral icterus. No injection or drainage. NECK: Supple, trachea midline. No JVD or lymphadenopathy. CARDIOVASCULAR: Regular rate and rhythm without murmurs, gallops, or rubs. RESPIRATORY: Breath sounds equal bilaterally. No accessory muscle use. GASTROINTESTINAL: Abdomen soft, non-tender, nondistended. MUSCULOSKELETAL: No cyanosis, or edema. BACK: Nontender without obvious deformity. No CVA tenderness. Assessment and Plan - Plan IMPRESSION: 1. Chronic obstructive pulmonary disease with exacerbation. 2. Bilateral patchy lung infiltrate. 3. Congestive heart failure. 4. Diabetes mellitus. 5. Coronary artery disease. 6. Hypertension. PLAN: Aerosol nebs Cont Abx Supplement 02 monitor lytes Neurontin 600 mg bid Ambien 10 mg q hs prn
[2018-05-04 04:44] VITALS: TEMP 97.7
[2018-05-04] MEDS: Chlorhexidine Gluconate 2% 1 Pack (2 Cloths) TOPICAL SCH (04:46)
[2018-05-04 05:03] LABS: Baso % (Auto) 0.3 % (0.0-2.0); Eos % (Auto) 0.2 % (0.0-4.0); Hemoglobin 11.7 gm/dL (11.6-15.3); Lymph # (Auto) 1.3 th/mm3 (1.0-4.8); Lymph % (Auto) 10.4 % (9.0-44.0); Mean Corpuscular HGB Conc 32.4 % (32.0-36.0); Mean Corpuscular Hemoglobin 30.2 pg (27.0-34.0); Mean Corpuscular Volume 93.1 fL (80.0-100.0); Mean Platelet Volume 8.8 fL (7.0-11.0); Mono # (Auto) 0.6 th/mm3 (0.0-0.9); Mono % (Auto) 4.7 % (0.0-8.0); Neut # (Auto) 10.4 th/mm3 (1.8-7.7); Neut % (Auto) 84.4 % (16.0-70.0); Platelet Count 216 th/mm3 (150-450); Red Blood Count 3.86 mil/mm3 (4.00-5.30); Red Cell Distribution Width 15.4 % (11.6-17.2); White Blood Count 12.3 th/mm3 (4.0-11.0)
[2018-05-04 05:09] LABS: Chloride 105 meq/L (98-107); Sodium 143 meq/L (136-145)
[2018-05-04 05:16] LABS: Calcium 7.8 mg/dL (8.5-10.1)
[2018-05-04 05:17] LABS: Albumin 2.6 g/dL (3.4-5.0); Anion Gap 6 meq/L (5-15); Blood Urea Nitrogen 28 mg/dL (7-18); Carbon Dioxide 31.7 meq/L (21.0-32.0); Glucose,Random 159 mg/dL (74-106)
[2018-05-04 05:20] LABS: Glomerular Filtration Rate 79 mL/min (>89)
[2018-05-04 05:27] LABS: Alanine Aminotransferase 46 U/L (10-53); Alkaline Phosphatase 79 U/L (45-117); Aspartate Aminotransferase 32 U/L (15-37)
--- NOTE | 2018-05-04 08:07 | P.DS ---
Date of admission: 05/01/18 16:02 Primary care physician: UNKNOWN Brief History from admission: Patient is a 52-year-old female with history of congestive heart failure, ejection fraction 35-40% on previous echo 2016, history of STEMI in 2016, coronary artery disease, COPD and continued smoking, diabetes, hypertension, dyslipidemia. She presented to the [facility] emergency department with increasing shortness of breath over the last 2-3 days, associated with productive cough. Used nebulizer at home without sufficient improvement. [facility] was called for worsening symptoms, she received 3 breathing treatments with DuoNeb en route, without sufficient improvement. In the emergency department she was severely short of breath, received additional 3 breathing treatments with DuoNeb. According to respiratory therapy, oxygen saturation was 82% on simple mask so she was placed on 100% nonrebreather. Because of increased work of breathing she was placed on BiPAP 15/5. Chest x- ray showed bilateral interstitial infiltrates. Patient received Rocephin and azithromycin for coverage of community-acquired pneumonia in the ED. A CT angiogram report is pending but my review does not reveal any major pulmonary embolism, there is bilateral interstitial edema and right lower lobe pneumonia. I evaluated the patient in the [facility] ICU. Patient for transportation to ICU had been placed on 100% nonrebreather, she has increased work of breathing and BiPAP will be reinitiated soon. Exam reveals bilateral crackles and expiratory wheezes. There is also significant JVD. I will place patient on IV steroids 60 every 8 hours scheduled, continue scheduled breathing treatments, modify antibiotics to cefepime and azithromycin, change Lasix to IV 40 mg every 8 hours. Her shortness of breath and hypoxemic respiratory failure secondary to CHF exacerbation and COPD with pneumonia DS: Diagnosis - Discharge Diagnosis (1) Acute exacerbation of COPD with asthma Status: Acute (2) Acute hypoxemic respiratory failure Status: Acute (3) Community acquired pneumonia Status: Acute DS: Medications - Discharge Medications Prescriptions: albuterol sulfate [Ventolin HFA] 1 puff INHALATION Q4-6H PRN #1 unit PRN Reason: shortness of breath or wheeze azithromycin 500 mg IV Q24H #7 ea cefuroxime axetil 500 mg PO Q12H #14 tab Lactobacillus acidophilus 500 mmu cells PO TID #30 cap DS: Summary Hospital Course: Mrs. Hussein is a 52-year-old female. She was admitted secondary to respiratory distress. This was a combination of COPD exacerbation and CHF exacerbation both of which were triggered by community acquired pneumonia. Patient was treated with antibiotics, steroids, breathing treatments, antibiotics and diuresis. She had a rapid improvement in her COPD component. Due to significantly elevated blood sugars steroids have been discontinued early. She continues to do well. Prominent burden of respiratory distress appears to have been CHF. At this point fluid is balanced and she is medically stable and cleared for discharge home on continuation of antibiotics, probiotics, and as needed albuterol. She is to resume other previous treatments including home oxygen. - Time Spent with Patient Total time spent providing and/or coordinating discharge services: Less than 30 minutes - Quality: VTE Deep Vein Thrombosis/Pulmonary Embolism Present on Admission: No Exam Vital signs: Vital Signs 05/03/18 09:00 05/03/18 10:00 05/03/18 10:52 Temperature Pulse Rate 104 H 98 H Respiratory Rate 44 H 13 Blood Pressure 116/83 117/77 Pulse Oximetry 96 100 96 05/03/18 14:00 05/03/18 14:31 05/03/18 14:37 Temperature Pulse Rate 104 H 102 H Respiratory Rate 58 H 26 H Blood Pressure 133/88 121/84 Pulse Oximetry 97 96 05/03/18 15:00 05/03/18 15:50 05/03/18 16:00 Temperature Pulse Rate 98 H 95 H 94 H Respiratory Rate 17 16 30 H Blood Pressure Pulse Oximetry 97 96 05/03/18 17:00 05/03/18 17:53 05/03/18 18:00 Temperature Pulse Rate 96 H 100 H Respiratory Rate 32 H 18 Blood Pressure 101/72 Pulse Oximetry 97 98 98 05/03/18 19:00 05/03/18 20:00 05/03/18 21:00 Temperature 97.4 F L Pulse Rate 102 H 98 H 92 H Respiratory Rate 19 24 14 Blood Pressure 124/78 Pulse Oximetry 97 97 98 05/03/18 21:19 05/03/18 22:00 05/03/18 23:00 Temperature Pulse Rate 94 H 98 H 88 Respiratory Rate 18 43 H 15 Blood Pressure Pulse Oximetry 96 98 97 05/03/18 23:28 05/04/18 00:00 05/04/18 01:00 Temperature 97.6 F Pulse Rate 90 90 90 Respiratory Rate 19 16 13 Blood Pressure 116/75 116/75 Pulse Oximetry 98 99 97 05/04/18 02:00 05/04/18 03:00 05/04/18 03:53 Temperature Pulse Rate 88 90 86 Respiratory Rate 13 14 12 Blood Pressure 93/63 L Pulse Oximetry 97 98 96 05/04/18 04:00 Temperature 97.7 F Pulse Rate 86 Respiratory Rate 16 Blood Pressure 93/63 L Pulse Oximetry 96 Intake & Output 05/03/18 05/04/18 05/04/18 18:59 06:59 18:59 Intake Total 1060 / 1060 560 / 560 350 / 350 Output Total 900 / 900 2 / 2 Balance 160 / 160 558 / 558 350 / 350 Weight 91.9 kg Intake: IV 100 / 100 100 / 100 350 / 350 Azithromycin Inj 500 MG In NS 250 / 250 Inj 250 ML @ 250 mls/hr IV.SIG Q24H VIV Rx#:[id number] Maxipime Inj 2,000 MG In NS Inj 100 / 100 100 / 100 100 / 100 100 ML @ 200 mls/hr IV.SIG Q12H VIV Rx#:[id number] Oral 960 / 960 460 / 460 Output: Urine 900 / 900 Stool 2 / 2 Other: # Voids 1 2 Date of Last Bowel Movement 05/03/18 05/03/18 # Incontinent Bowel Movements 1 Results Procedures completed during hospitalization: None Labs on day of discharge: Labs from last 24 hours 05/04/18 05/04/18 05/03/18 04:26 04:26 20:38 CBC w Diff Auto diff final WBC 12.3 H RBC 3.86 L Hgb 11.7 Hct 36.0 MCV 93.1 MCH 30.2 MCHC 32.4 RDW 15.4 Plt Count 216 MPV 8.8 Neut % (Auto) 84.4 H Lymph % (Auto) 10.4 Victoria % (Auto) 4.7 Eos % (Auto) 0.2 Baso % (Auto) 0.3 Neut # (Auto) 10.4 H Lymph # (Auto) 1.3 Victoria # (Auto) 0.6 Eos # (Auto) 0.0 Baso # (Auto) 0.0 WBC Differential . Differential Comment . Sodium 143 Potassium 4.0 Chloride 105 Carbon Dioxide 31.7 Anion Gap 6 BUN 28 H Creatinine 0.76 Estimated GFR 79 L POC Glucose 240 H Random Glucose 159 H Calcium 7.8 L Total Bilirubin 0.4 AST 32 ALT 46 Alkaline Phosphatase 79 Total Protein 6.0 L D Albumin 2.6 L 05/03/18 05/03/18 05/03/18 17:24 12:54 08:02 CBC w Diff WBC RBC Hgb Hct MCV MCH MCHC RDW Plt Count MPV Neut % (Auto) Lymph % (Auto) Victoria % (Auto) Eos % (Auto) Baso % (Auto) Neut # (Auto) Lymph # (Auto) Victoria # (Auto) Eos # (Auto) Baso # (Auto) WBC Differential Differential Comment Sodium Potassium Chloride Carbon Dioxide Anion Gap BUN Creatinine Estimated GFR POC Glucose 257 H 217 H 225 H Random Glucose Calcium Total Bilirubin AST ALT Alkaline Phosphatase Total Protein Albumin - Impressions ITS Impressions Chest CTA 05/01/18 14:19 CONCLUSION: 1. No pulmonary embolus identified. 2. Patchy areas of infiltrates seen within both lungs concerning for a possible pneumonia. Chest X-Ray 05/02/18 06:00 CONCLUSION: Cardiomegaly Focal densities in the mid and lower lungs bilaterally likely related to focal areas of consolidation, atelectasis or mass. Discharge Plan - Discharge Disposition Patient Disposition: Discharge Home - Discharge Condition Condition: Stable - Discharge Order Discharge Orders: Discharge Order (Routine); Ordered 05/04/18 Ordered By: James Minaya - Discharge Details Anticipated Discharge Date: 05/04/18 - Physicians Team Primary Care Provider: UNKNOWN, Attending Provider: James Minaya Other Providers: JAMES MINAYA M.D., OPHTHAL. ; Jovani Witt MD
[2018-05-04] MEDS: Insulin NovoLOG Aspart Correctional Sugar Inj SQ SCH ×2 (09:10→13:04)
[2018-05-04] MEDS: Famotidine PF Inj 20 MG/2 ML Vial IV.PUSH SCH (09:11)
[2018-05-04] MEDS: amLODIPine 10 MG Tablet PO SCH (09:12)
[2018-05-04] MEDS: Gabapentin 300 MG Capsule PO SCH (09:12)
[2018-05-04 10:15] VITALS: BP 106/74; PULSE 88; RESP 15; O2SAT 94
--- NOTE | 2018-05-04 11:28 | P.PNPL ---
Subjective Interval history: OWF with COPD exac, SOB breathing better No SOB On RA Physical Exam Vital signs: Vital Signs 05/03/18 14:00 05/03/18 14:31 05/03/18 14:37 Temperature Pulse Rate 104 H 102 H Respiratory Rate 58 H 26 H Blood Pressure 133/88 121/84 Pulse Oximetry 97 96 05/03/18 15:00 05/03/18 15:50 05/03/18 16:00 Temperature Pulse Rate 98 H 95 H 94 H Respiratory Rate 17 16 30 H Blood Pressure Pulse Oximetry 97 96 05/03/18 17:00 05/03/18 17:53 05/03/18 18:00 Temperature Pulse Rate 96 H 100 H Respiratory Rate 32 H 18 Blood Pressure 101/72 Pulse Oximetry 97 98 98 05/03/18 19:00 05/03/18 20:00 05/03/18 21:00 Temperature 97.4 F L Pulse Rate 102 H 98 H 92 H Respiratory Rate 19 24 14 Blood Pressure 124/78 Pulse Oximetry 97 97 98 05/03/18 21:19 05/03/18 22:00 05/03/18 23:00 Temperature Pulse Rate 94 H 98 H 88 Respiratory Rate 18 43 H 15 Blood Pressure Pulse Oximetry 96 98 97 05/03/18 23:28 05/04/18 00:00 05/04/18 01:00 Temperature 97.6 F Pulse Rate 90 90 90 Respiratory Rate 19 16 13 Blood Pressure 116/75 116/75 Pulse Oximetry 98 99 97 05/04/18 02:00 05/04/18 03:00 05/04/18 03:53 Temperature Pulse Rate 88 90 86 Respiratory Rate 13 14 12 Blood Pressure 93/63 L Pulse Oximetry 97 98 96 05/04/18 04:00 05/04/18 07:00 05/04/18 08:00 Temperature 97.7 F Pulse Rate 86 86 86 Respiratory Rate 16 14 15 Blood Pressure 93/63 L 106/74 Pulse Oximetry 96 93 L 95 05/04/18 09:00 05/04/18 09:43 05/04/18 10:00 Temperature Pulse Rate 90 89 88 Respiratory Rate 13 16 15 Blood Pressure Pulse Oximetry 99 94 L Intake & Output 05/03/18 05/04/18 05/04/18 18:59 06:59 18:59 Intake Total 1310 / 1310 560 / 560 100 / 100 Output Total 900 / 900 2 / 2 Balance 410 / 410 558 / 558 100 / 100 Weight 91.9 kg Intake: IV 350 / 350 100 / 100 100 / 100 Azithromycin Inj 500 MG In NS 250 / 250 Inj 250 ML @ 250 mls/hr IV.SIG Q24H VIV Rx#:[id number] Maxipime Inj 2,000 MG In NS Inj 100 / 100 100 / 100 100 / 100 100 ML @ 200 mls/hr IV.SIG Q12H VIV Rx#:[id number] Oral 960 / 960 460 / 460 Output: Urine 900 / 900 Stool 2 / 2 Other: # Voids 1 2 Date of Last Bowel Movement 05/03/18 05/03/18 05/03/18 # Incontinent Bowel Movements 1 GENERAL: Obese WF,NAD SKIN: Warm and dry. HEAD: Normocephalic. EYES: No scleral icterus. No injection or drainage. NECK: Supple, trachea midline. No JVD or lymphadenopathy. CARDIOVASCULAR: Regular rate and rhythm without murmurs, gallops, or rubs. RESPIRATORY: Breath sounds equal bilaterally. No accessory muscle use. GASTROINTESTINAL: Abdomen soft, non-tender, nondistended. MUSCULOSKELETAL: No cyanosis, or edema. BACK: Nontender without obvious deformity. No CVA tenderness. Assessment and Plan - Plan IMPRESSION: 1. Chronic obstructive pulmonary disease with exacerbation. 2. Bilateral patchy lung infiltrate. 3. Congestive heart failure. 4. Diabetes mellitus. 5. Coronary artery disease. 6. Hypertension. PLAN: Aerosol nebs Cont Abx monitor lytes Neurontin 600 mg bid Ambien 10 mg q hs prn Stable on RA DC plans for home
[2018-05-04] MEDS: Budesonide-Formoterol 160/4.5 MCG 6 GM Inhaler INH SCH (13:03)
== END 2018-05-04 11:20 | disposition home or self-care (01) ==
LOC: PHED 11:19 → PHEDA 16:02 → PHICU 16:40
PROVIDERS: ADMIT Hospitalist; ATTEND Hospitalist